=== PATIENT | male | born 1955 | race Caucasian/White ===

== ENCOUNTER → 2019-09-30 | Outpatient (CLI) | payer OTHER, SELFPAY | PROVIDERS: Family Provider Family Medicine; Visit Provider Family Medicine | DX: I71.4 Abdominal aortic aneurysm, without rupture (principal) | CPT/HCPCS: 93978 ==

== ENCOUNTER 2019-12-10 06:58 | Outpatient (CLI) | payer OTHER, SELFPAY ==
--- NOTE | 2019-12-10 07:15 | XR_ITS ---
WS: [id number] KUB, 12/10/2019 Clinical Data: Follow-up kidney stone Comparison: KUB, 05/09/2019. Findings: No abnormal intraabdominal masses or calcifications are seen. There is no dilatated small bowel or ev idence of obstruction. No definite renal or ureteral calculi are seen. There is air in the stomach, small bowel and colon. T he air obscures detail over the kidneys. XR/XR KUB [id number] Impression: Negative for definite renal or ureteral calcifications.
[2019-12-10 08:08] LABS: Prostate Specific Antigen 0.38 ng/mL (0-4)
== END 2019-12-10 06:59 | disposition home or self-care (01) ==
PROVIDERS: Family Provider Family Medicine; PCP Family Medicine; Visit Provider Urology
DX: N20.0 Calculus of kidney (principal); R97.20 Elevated prostate specific antigen [PSA]; C61 Malignant neoplasm of prostate
CPT/HCPCS: 74018; 81001; 84153

== ENCOUNTER 2020-06-11 06:57 | Outpatient (CLI) | payer OTHER, SELFPAY ==
--- NOTE | 2020-06-11 07:10 | XR_ITS ---
WS: [id number] KUB, 06/11/2020. Clinical Data: urolithiasis Comparison: KUB, 12/10/2019. Findings: No abnormal intraabdominal masses or calcifications are seen. There is no dilatated small bowel or ev idence of obstruction. There is air in the stomach, small bowel and colon. The abdominal air obscures detail over the kidney s. The bladder is partly full. XR/XR KUB [id number] Impression: Negative KUB.
== END 2020-06-11 06:58 | disposition home or self-care (01) ==
PROVIDERS: PCP Family Medicine; Visit Provider Urology
DX: N20.9 Urinary calculus, unspecified (principal); C61 Malignant neoplasm of prostate
CPT/HCPCS: 74018; 81001; 84153

== ENCOUNTER 2020-10-06 08:50 | Outpatient (CLI) | payer OTHER, SELFPAY ==
--- NOTE | 2020-10-06 09:00 | USCV_ITS ---
Eliceo Simpson Age: 64 Gender: M : 1955 Exam Date: 10/06/2020 09:42 Ordering Phys: Onofre Elise MD Technologist: Elissa Dejesus Exam Location: [facility] [place] Indication: AAA HISTORY: Diameter (cm) AP x Transverse x Length Velocity (cm/s) Waveform Prox Aorta: 2.21 x 2.75 x 2.12 Mid Aorta: 2.67 x 2.81 x 2.54 60.70 Distal Aorta: 2.50 x 2.71 x 2.61 Right Iliac Prox: 1.34 x 1.45 x Left Iliac Prox: 1.51 x 1.78 x Stent Prox Landing x x Aneurysmal Sac Max x x Lt Lat Sac Dim Rt Lat Sac Dim Stent Dist Landing x x Right Iliac Stent x x Left Iliac Stent x x Right Renal Art Left Renal Art FINDINGS: Mildly dilated mid and distal abdominal aorta measuring 2.67 x 2.81and 2.5 x 2.71 respectively. Mild to moderate diffuse plaques in the abdominal aorta Right proximal iliac artery measuring 1.34 x 1.45 cm Left iliac artery measuring 1.51 x 1.78 cm CONCLUSIONS 1. Small aneurysmal dilatation of the perirenal and infrarenal abdominal aorta measuring 2.67 x 2.81 cm and 2.5 x 2.71 cms 2. Ectatic proximal common iliac arteries bilaterally Compared to the study from 09/30/2019, there is slight increase in the size of the aneurysm at the perirenal and infrarenal levels Dr Crystal Garcia MD [facility] (Electronically Signed) Final Date: 07 October 2020 19:28 S
== END 2020-10-06 08:51 | disposition home or self-care (01) ==
PROVIDERS: PCP Family Medicine; Visit Provider Family Medicine
DX: I71.4 Abdominal aortic aneurysm, without rupture (principal)
CPT/HCPCS: 93978

== ENCOUNTER → 2020-12-10 07:55 | Outpatient (BNVA) | payer OTHER, MEDICARE, SELFPAY | PROVIDERS: PCP Family Medicine; Visit Provider Urology | DX: C61 Malignant neoplasm of prostate (principal); N20.0 Calculus of kidney | CPT/HCPCS: 81003; 84153 ==

== ENCOUNTER 2021-04-17 14:29 | Emergency (ER) | payer OTHER, MEDICARE, SELFPAY ==
[2021-04-17 14:38] VITALS: BP 136/83; PULSE 80; RESP 16; TEMP 36.4; O2SAT 97; BMI 27.1
--- NOTE | 2021-04-17 14:52 | ED_ITS ---
HPI - Neck Pain/Injury General: Chief Complaint: Neck Pain/Injury Stated Complaint: Pain in neck Time Seen by Provider: 04/17/21 14:50 History of Present Illness: HPI Narrative: Patient is a 65-year-old male comes to the ED with neck pain. He says on Monday morning he woke up with this neck pain. He then went playing golf later that day and that made his neck pain a lot worse. Patient says he was seen by his primary care doctor yesterday and he was placed on some muscle relaxers and today his pain is worse. Says all his pain is in both right and left muscles of the neck. Denies any known form of injury. Associated symptoms: Denies headache(s) or nausea Review of Systems Const: Denies: fever(s), chills or fatigue Eyes: Denies: change in vision or eye discomfort ENMT: Denies: throat pain, odynophagia, nasal discharge or nasal congestion Card: Denies: chest pain, palpitations, edema, swelling of feet/ankles, dyspnea on exertion or orthopnea Resp: Denies: dyspnea, productive cough or non-productive cough GI: Denies: abdominal pain, nausea, vomiting, diarrhea, constipation or hematochezia : Denies: flank pain, difficulty urinating, dysuria or hematuria Musc: Reports: neck pain; Denies: back pain or extremity swelling Skin/Breast: Denies: rash or new lesions Neuro: Denies: headache(s), numbness in extremities or weakness in extremities PFSH ED PFSH: Medical History Abdominal aortic aneurysm (AAA) CAD (coronary artery disease) COPD (chronic obstructive pulmonary disease) Dyslipidemia Elevated PSA Essential hypertension Prostate CA Renal calculus, right S/P extracorporeal shock wave therapy Urolithiasis Surgical History S/P arterial stent Family History Sister Cancer Ovarian Mother , 85 Stroke Father , 85 CAD (coronary artery disease) Social History Smoking and tobacco status: former smoker Alcohol intake: current Alcohol intake frequency: few times a month Adopted: No Caregiver/support person: No Lives independently: No Household members: spouse Marital status: Current occupational status: retired History of recent travel: No Current gender identity: Male Physical Exam Const: COMMON NORMALS: patient oriented x3 HENMT: COMMON NORMALS: normocephalic HEAD & SCALP: normocephalic MOUTH: Normal oral and palatal mucosa present THROAT: posterior oropharynx normal and uvula midline Neck/C-Spine: COMMON NORMALS: supple GENERAL: Yes normal visual inspection Resp: COMMON NORMALS: normal respiratory effort, No retractions, No use of a ccessory muscles and clear to auscultation bilaterally AUSCULTATION: clear to auscultation bilaterally Cardio: COMMON NORMALS: regular rate, regular rhythm, S1 normal heart sound present, S2 normal heart sound present, No gallops present (Cardio), No clicks present (Cardio), No murmurs present (Cardio) and Peripheral pulses 2+ throughout RATE: regular rate RHYTHM: regular rhythm HEART SOUNDS: S1 normal heart sound present and S2 normal heart sound present PERIPHERAL PULSES: Peripheral pulses 2+ throughout GI: COMMON NORMALS: Normal to inspection, nondistended, normoactive bowel sounds present, Soft to palpation, non-tender and no masses PALPATION: Yes Soft to palpation : COMMON NORMALS: Yes no CVA tenderness BLADDER/KIDNEY EXAM: Yes no CVA tenderness Back/Pelvis: COMMON NORMALS: no CVA tenderness Extremity: COMMON NORMALS: normal to inspection Neuro: COMMON NORMALS: patient oriented x3 and moves all extremities Skin: GENERAL SKIN EXAM: dry skin Course Vital Signs: Vital signs: Vital Signs Temperature 97.5 F L 04/17/21 14:38 Pulse Rate 80 04/17/21 14:38 Respiratory Rate 16 04/17/21 14:38 Blood Pressure 136/83 04/17/21 14:38 Pulse Oximetry 97 04/17/21 14:38 MDM - Neck Pain/Injury MDM Narrative: Medical decision making narrative: Pt is a 65 y/o Male that comes to the ED with neck pain. Pt woke up with pain and denies any injury or trauma. He says pain got worse after golfing that day. Exam shows a healthy pt with bilateral neck muscle tenderness. Pt diagnosed with cervical muscle strain and d/c home. pt is currently taking 5mg dose of cyclobenzaprine and I told him to try taking 10mg dose to see if that helps symptoms. Rest, ice and stretch neck muscles daily. pt has previouosly prescribed pain meds at home he said he can use. follow up with pcp in 7-10 days for reevaluation. Discharge Plan Discharge Patient Disposition: Home Clinical Impression: Cervical muscle strain Qualifiers: Encounter type: initial encounter Qualified Code(s): S16.1XXA - Strain of muscle, fascia and tendon at neck level, initial encounter Condition: Stable Prescriptions: No Action aspirin [Adult Low Dose Aspirin] 81 mg tablet,delayed release (DR/EC) 81 mg PO DAILY RF: 0 lisinopril 2.5 mg tablet 2.5 mg PO DAILY RF: 0 clopidogrel 75 mg tablet 75 mg PO DAILY Qty: 90 RF: 3 atorvastatin 80 mg tablet 80 mg PO DAILY Qty: 90 RF: 3 Discharge Orders: Discharge ED (Routine); Ordered 04/17/21 Ordered By: Sebastián Self Referrals: Onofre Elise MD [Primary Care Provider] - Discharge Diet: Regular Discharge Activity: Increase activity as tolerated Patient Instructions: Cervical Strain Activity Restrictions/Additional Instructions: Follow-up with medical provider as directed in 5 to 7 days reevaluation. Apply cold pack on neck and try to stretch neck muscles on daily. Take your 10 mg(2 tabs) of cyclobenzaprine each dose to help with symptoms. Take some of your previously prescribed hydrocodone tablets you have at home to help with pain. Return to the ER or your medical provider if condition worsens. Please read and understand discharge instructions. Thank you for choosing [facility] for your healthcare needs today. Please realize this is an emergency room and that we are providing you with a medical screening exam and this may not be complete and all inclusive of all the testing and or work up that you may need to determine your ailment or severity of your illness. It is very important that you follow up as instructed or that you return to the Emergency Department should you have concerns or if your condition changes or worsens in any way. Coding Level of Care Code ED Conveyor Belt Installer for Judy Dang Exam Comprehensive
== END 2021-04-17 15:35 | disposition home or self-care (01) ==
PROVIDERS: Emergency Provider Physician Assistant; PCP Family Medicine
DX: S16.1XXA Strain of muscle, fascia and tendon at neck level, initial encounter (principal); Z79.82 Long term (current) use of aspirin; Z79.02 Long term (current) use of antithrombotics/antiplatelets; I25.10 Atherosclerotic heart disease of native coronary artery without angina pectoris; J44.9 Chronic obstructive pulmonary disease, unspecified; E78.5 Hyperlipidemia, unspecified; Z85.46 Personal history of malignant neoplasm of prostate; I10 Essential (primary) hypertension; Z87.891 Personal history of nicotine dependence; X58.XXXA Exposure to other specified factors, initial encounter
CPT/HCPCS: 99281

== ENCOUNTER 2021-04-27 05:09 | Inpatient (IN) | payer OTHER, MEDICARE, SELFPAY ==
[2021-04-27] VITALS (23 sets, daily range): BP systolic 99–160; BP diastolic 50–89; PULSE 62–94; RESP 13–28; TEMP 36.1–37.4; O2SAT 88–100; BMI 27.1
--- NOTE | 2021-04-27 05:46 | CT_ITS ---
WS: [id number] CT abdomen pelvis w con* [id number] REASON FOR EXAM: abd pain IV CONTRAST ADMINISTERED: 95 mL of Omnipaque 300. TOTAL EXAM DLP: 1617.[address] scans at [facility] use at least one of these dose optimization techniques: automat ed exposure control; mA and/or kV adjustment per patient size (includes targeted exams where dose is matched to clinical indication); or iterative reconstruction. FINDINGS: ABDOMEN: There are calcified granulomas in the liver and spleen. The liver and spleen are otherwise unremarkab le. The pancreas is normal. The gallbladder is enlarged. It has an irregular hypointense thickened wall and high density central portion. No calculi are identified. There is no dilatation of the biliary ducts. The adrenals are unremarkable. There are multiple small right renal calculi. The kidneys are otherwise unremarkable. No mass, adenopathy, focal fluid collection, or free fluid is identified. No bowel abnormality. No bony abnormality. PELVIS: No mass, adenopathy, focal fluid collection, or free fluid is identified. No abnormality of the urina ry bladder. No bony abnormality. CT/CT abdomen pelvis w con* [id number] IMPRESSION: The appearance of the gallbladder is not typical for cholecystitis. Possibly th e findings are indicative of hemorrhagic infarction with clot within the gallbl adder. The other consideration would be hemorrhage with gallbladder carcinoma . Calculi are not identified and were not present on a previous CT scan of 07/02.
[2021-04-27 06:13] LABS: Basophils # 0.1 10^3/uL (0.0-0.1); Eosinophils # 0.2 10^3/uL (0.0-0.8); Eosinophils % 2.3 %; Hematocrit 48.2 % (42.0-52.0); Hemoglobin 16.2 g/dL (11.7-16.6); Lymphocytes # 2.3 10^3/uL (0.8-4.8); Lymphocytes % 26.4 %; Mean Corpuscular HGB Conc 33.6 g/dL (30.0-36.0); Mean Corpuscular Hemoglobin 33.1 pg (28.0-34.0); Mean Corpuscular Volume 98.4 fL (80-94); Mean Platelet Volume 10.4 fL (7.4-10.4); Monocytes # 0.9 10^3/uL (0.2-0.9); Monocytes % 9.9 %; Neutrophils # 5.29 10^3/uL (1.8-7.7); Neutrophils % 60.1 %; Nucleated Red Blood Cells % 0 %; Platelet Count 219 10^3/cmm (130-400); Red Cell Distribution Width 13.2 % (12.1-15.1); White Blood Count 8.8 10^3/uL (4.0-10.0)
--- NOTE | 2021-04-27 06:14 | ED_ITS ---
HPI - Abdominal Pain General: Chief Complaint: Abdominal Pain Stated Complaint: ABD Pain Time Seen by Provider: 04/27/21 05:46 History of Present Illness: HPI narrative: This patient is a 65-year-old male who presents to the emergency department with diffuse abdominal pain feels like he is bloated. Patient states it feels sharp at times and is cannot seem to get comfortable. Patient stated he had about small bowel movement this morning but has not been have any flatus. Will do medical evaluation treat as needed. MD elicited complaint: abdominal pain Location: Diffuse Severity: moderate Quality: aching Exacerbating factors: nothing Relieving factors: nothing Associated Symptoms: Denies chills, dysuria, fever(s), nausea and vomiting Review of Systems General: Reports: 10 or more systems reviewed and unremarkable except in HPI and below Const: Denies: fever(s), chills, body aches or fatigue Eyes: Denies: change in vision or blurry vision ENMT: Denies: throat pain, hoarseness or mouth pain Card: Denies: chest pain, palpitations, irregular heart rhythm, edema, swelling of feet/ankles or lightheadedness Resp: Denies: dyspnea, productive cough, non-productive cough, wheezing or pain on inspiration GI: Reports: abdominal pain; Denies: nausea or vomiting : Denies: flank pain, dysuria, urinary frequency, urinary urgency or urinary hesitancy Musc: Denies: neck pain, back pain, extremity pain, extremity swelling, joint pain, joint swelling, joint redness, joint warmth or limited range of motion Skin/Breast: Denies: rash, pruritus, erythema or skin tenderness Neuro: Denies: headache(s), numbness in extremities or weakness in extremities Psych: Denies: anxiety or depression PFS ED PFSH: Medical History Abdominal aortic aneurysm (AAA) CAD (coronary artery disease) COPD (chronic obstructive pulmonary disease) Dyslipidemia Elevated PSA Essential hypertension Prostate CA Renal calculus, right S/P extracorporeal shock wave therapy Urolithiasis Surgical History S/P arterial stent Family History Sister Cancer Ovarian Mother , 85 Stroke Father , 85 CAD (coronary artery disease) Social History Smoking and tobacco status: former smoker Alcohol intake: current Alcohol intake frequency: few times a month Adopted: No Caregiver/support person: No Lives independently: No Household members: spouse Marital status: Current occupational status: retired History of recent travel: No Current gender identity: Male Physical Exam Const: COMMON NORMALS: no acute distress, average body habitus, patient oriented x3, no limitations, healthy appearing, alert and well nourished HENMT: COMMON NORMALS: normocephalic, atraumatic, hearing grossly normal bilaterally, external ears normal, EAC's normal, TM's normal bilaterally, Normal external nose present, Normal nasal mucous membranes and turbinates present, moist oral mucous membranes, oropharynx normal, dentition normal and gingiva normal HEAD & SCALP: normocephalic and atraumatic NOSE: Normal external n ose present and Normal nasal mucous membranes and turbinates present EXTERNAL EAR: Yes external ears normal EXTERNAL AUDITORY CANAL: EAC's normal TYMPANIC MEMBRANE: TM's normal bilaterally Neck/C-Spine: COMMON NORMALS: full ROM, no lymphadenopathy, supple, no meningeal signs, no JVD, Thyroid normal and No carotid bruits THYROID: Thyroid normal Chest: COMMONS NORMALS: normal inspection of the chest, normal palpation of entire chest wall, normal inspection of the breasts and normal palpation of the breasts Breast/axilla inspection: Yes normal inspection of the breasts BREAST/AXILLA PALPATION: Yes normal palpation of the breasts Resp: COMMON NORMALS: normal respiratory effort, No retractions, No use of accessory muscles, clear to auscultation bilaterally and percussion normal AUSCULTATION: clear to auscultation bilaterally PERCUSSION: percussion normal Cardio: COMMON NORMALS: no JVD, regular rate, regular rhythm, S1 normal heart sound present, S2 normal heart sound present, No gallops present (Cardio), No clicks present (Cardio), No murmurs present (Cardio), No rub (Cardio) and Sera pheral pulses 2+ throughout RATE: regular rate RHYTHM: regular rhythm HEART SOUNDS: S1 normal heart sound present and S2 normal heart sound present PERIPHERAL PULSES: Peripheral pulses 2+ throughout GI: COMMON NORMALS: Normal to inspection, nondistended, normoactive bowel sounds present, Soft to palpation, No hepatosplenomegaly present, no masses and no bruits INSPECTION: Yes abdominal distension PALPATION: Yes Soft to palpation, Yes Tenderness to palpation present (GI) (Diffuse) and Yes No hepatosplenomegaly present : COMMON NORMALS: Yes no CVA tenderness BLADDER/KIDNEY EXAM: Yes no CVA tenderness Back/Pelvis: COMMON NORMALS: no CVA tenderness, thoracic and lumbar spine normal to inspection, no thoracic nor lumbar tenderness, thoraco-lumbar ROM normal and straight leg raise negative bilaterally Extremity: COMMON NORMALS: normal to inspection, full ROM, capillary refill normal, no joint enlargement, no clubbing, cyanosis or edema, no calf tenderness and no pedal edema Neuro: COMMON NORMALS: patient oriented x3 SENSORIUM/ORIENTATION: Yes alert MENINGEAL SIGNS: Yes no meningeal signs Course Reevaluation(s): Reevaluation #1: I did discuss at length with patient and fam greman about findings. They are agreeable to be admitted to the hospital. They understand to be n.p.o. status for at this time due to potential surgery this afternoon. Time: 09:35 Consultations: Consultation #1: I discussed with general surgery Dr. Tapia. He states he will see patient as a consult. Keep patient n.p.o. and he is agreeable with patient to be started on Zosyn. Time: 09:35 Consultation #2: I did discuss at length with Dr. Buchanan. He will see patient write additional orders. Time: 09:36 Vital Signs: Vital signs: Vital Signs Temperature 98.6 F 04/27/21 05:22 Pulse Rate 75 04/27/21 09:00 Respiratory Rate 24 H 04/27/21 09:56 Blood Pressure 137/72 04/27/21 09:00 Pulse Oximetry 99 04/27/21 09:00 MDM - Abdominal Pain MDM Narrative: Medical decision making narrative: This patient is a 65-year-old male who presents to the emergency department with diffuse abdominal pain feels like he is bloated. Patient states it feels sharp at times and is cannot seem to get comfortable. Patient stated he had about small bowel movement this morning but has not been have any flatus. Will do medical evaluation treat as needed. I did discuss at length with patient and family about findings. They are agreeable to be admitted to the hospital. They understand to be n.p.o. status for at this time due to potential surgery this afternoon. I discussed with general surgery Dr. Tapia. He states he will see patient as a consult. Keep patient n.p.o. and he is agreeable with patient to be started on Zosyn. I did discuss at length with Dr. Buchanan. He will see patient write additional orders. Differential Diagnosis: Differential diagnosis abdominal pain: Likely abdomin al pain, acute appendicitis, calculus of kidney, constipation, diverticulitis, endometriosis, gastroenteritis, pancreatitis and small bowel obstruction Medical Records: Attestation: I reviewed the patient's medical records. Lab Data: Attestation: I reviewed the patient's lab results. Labs: Lab Results 04/27/21 04/27/21 04/27/21 Range/Units 06:04 06:04 06:04 WBC 8.8 (4.0-10.0) 10^3/ uL RBC 4.90 (4.1-5.3) 10^6/u L Hgb 16.2 (11.7-16.6) g/dL Hct 48.2 (42.0-52.0) % MCV 98.4 H (80-94) fL MCH 33.1 (28.0-34.0) pg MCHC 33.6 (30.0-36.0) g/dL RDW 13.2 (12.1-15.1) % Plt Count 219 (130-400) 10^3/c mm MPV 10.4 (7.4-10.4) fL Neut % (Auto) 60.1 % Lymph % (Auto) 26.4 % [place] % (Auto) 9.9 % Eos % (Auto) 2.3 % Baso % (Auto) 1.0 % Neut # (Auto) 5.29 (1.8-7.7) 10^3/u L Lymph # (Auto) 2.3 (0.8-4.8) 10^3/u L [place] # (Auto) 0.9 (0.2-0.9) 10^3/u L Eos # (Auto) 0.2 (0.0-0.8) 10^3/u L Baso # (Auto) 0.1 (0.0-0.1) 10^3/u L Nucleated RBC % (a uto) 0 % Nucleated RBCs # 0.0 /100WBC Sodium 138 (136-145) mmol/L Potassium 3.9 (3.5-5.1) mmol/L Chloride 103 (98-107) mmol/L Carbon Dioxide 23 (22-29) mmol/L Anion Gap 15.9 (5-19) BUN 8 (8-23) mg/dL Creatinine 1.0 (0.7-1.2) mg/dL GFR Calculation 75.0 L (90-130) mL/min Glucose 154 H (65-115) mg/dL Calculated Osmolal ity 287 (285-295) mOsm/k g Lactic Acid 3.3 H (0.5-2.2) mmol/L Lactic Acid (Sepsi s) (0.5-2.2) mmol/L Calcium 9.1 (8.5-10.5) mg/dL Total Bilirubin 0.5 (0.15-1.2) mg/dL AST 155 H (0-40) U/L ALT 107 H (0-41) U/L Alkaline Phosphata se 123 (40-130) IU/L Total Protein 6.7 (6.6-8.7) g/dL Albumin 4.0 (3.5-5.2) g/dL Globulin 2.7 (1.3-4.6) g/dL Urine Color (Yellow) Urine Appearance (CLEAR) Urine pH (5-7) Ur Specific Gravit y (1.005-1.030) Urine Protein (Negative) Urine Glucose (UA) (Normal) Urine Ketones (Negative) Urine Blood (Negative) Urine Nitrate (Negative) Urine Bilirubin (Negative) Urine Urobilinogen (Negative) mg/dL Ur Leukocyte Dyana ase (Negative) Urine RBC (0-2) /hpf Urine WBC (0-5) /hpf Ur Squamous Epith Cells (0-5) /hpf Amorphous Sediment Urine Bacteria (NONE) /hpf Urine Mucus /hpf 04/27/21 04/27/21 Range/Units 06:18 08:12 WBC (4.0-10.0) 10^3/ uL RBC (4.1-5.3) 10^6/u L Hgb (11.7-16.6) g/dL Hct (42.0-52.0) % MCV (80-94) fL MCH (28.0-34.0) pg MCHC (30.0-36.0) g/dL RDW (12.1-15.1) % Plt Count (130-400) 10^3/c mm MPV (7.4-10.4) fL Neut % (Auto) % Lymph % (Auto) % [place] % (Auto) % Eos % (Auto) % Baso % (Auto) % Neut # (Auto) (1.8-7.7) 10^3/u L Lymph # (Auto) (0.8-4.8) 10^3/u L [place] # (Auto) (0.2-0.9) 10^3/u L Eos # (Auto) (0.0-0.8) 10^3/u L Baso # (Auto) (0.0-0.1) 10^3/u L Nucleated RBC % (a uto) % Nucleated RBCs # /100WBC Sodium (136-145) mmol/L Potassium (3.5-5.1) mmol/L Chloride (98-107) mmol/L Carbon Dioxide (22-29) mmol/L Anion Gap (5-19) BUN (8-23) mg/dL Creatinine (0.7-1.2) mg/dL GFR Calculation (90-130) mL/min Glucose (65-115) mg/dL Calculated Osmolal ity (285-295) mOsm/k g Lactic Acid (0.5-2.2) mmol/L Lactic Acid (Sepsi s) 3.0 H (0.5-2.2) mmol/L Calcium (8.5-10.5) mg/dL Total Bilirubin (0.15-1.2) mg/dL AST (0-40) U/L ALT (0-41) U/L Alkaline Phosphata se (40-130) IU/L Total Protein (6.6-8.7) g/dL Albumin (3.5-5.2) g/dL Globulin (1.3-4.6) g/dL Urine Color Yellow (Yellow) Urine Appearance Clear (CLEAR) Urine pH 5 (5-7) Ur Specific Gravit y 1.015 (1.005-1.030) Urine Protein Neg (Negative) Urine Glucose (UA) Norm (Normal) Urine Ketones Negative (Negative) Urine Blood Neg (Negative) Urine Nitrate Negative (Negative) Urine Bilirubin 1+ H (Negative) Urine Urobilinogen 1 H (Negative) mg/dL Ur Leukocyte Dyana ase Trace H (Negative) Urine RBC Rare (0-2) /hpf Urine WBC 0-4 H (0-5) /hpf Ur Squamous Epith Cells 0-4 H (0-5) /hpf Amorphous Sediment Not Reportable Urine Bacteria Trace (NONE) /hpf Urine Mucus 1+ /hpf Imaging Data ^: CT Abd/Pel: Attestation: I personally reviewed and interpreted this imaging study as follows: Radiologist's impression: FINDINGS: ABDOMEN: There are calcified granulomas in the liver and spleen. The liver and spleen are otherwise unremarkable. The pancreas is normal. The gallbladder is enlarged. It has an irregular hypointense thickened wall and high density central portion. No calculi are identified. There is no dilatation of the biliary ducts. The adrenals are unremarkable. There are multiple small right renal calculi. The kidneys are otherwise unremarkable. No mass, adenopathy, focal fluid collection, or free fluid is identified. No bowel abnormality. No bony abnormality. PELVIS: No mass, adenopathy, focal fluid collection, or free fluid is identified. No abnormality of the urinary bladder. No bony abnormality. CT/CT abdomen pelvis w con* [id number] IMPRESSION: The appearance of the gallbladder is not typical for cholecystitis. Possibly the findings are indicative of hemorrhagic infarction with clot within the gallbladder. The other consideration would be hemorrhage with gallbladder carcinoma. Calculi are not identified and were not present on a previous CT scan of 07/16/2018. US: Attestation: I personally reviewed and interpreted this imaging study as follows: Radiologist's impression: FINDINGS: Pancreas: Normal Abdominal aorta and IVC: Normal Liver: Normal Gallbladder: Gallbladder is enlarged and contains heterogeneous increased signal with thickened wall and a small amount of fluid in the gallbladder, same as the findings noted on the CT scan. There was no enhancement in this abnormality on CT and no color flow is identified on ultrasound. It is possible this represents impacted sludge and multiple stones within a necrotic gallbladder. The patient had no identifiable calculi on previous CT scans. This is a very unusual appearance for both CT and ultrasound for multiple calculi and cholecystitis. Still some concern for hemorrhagic infarction and/or gallbladder tumor. Common bile duct is not dilated. Right kidney is normal. US/US gall bladder [id number] IMPRESSION: Atypical abnormal gallbladder as above. Discharge Plan Discharge Patient Disposition: Placed in Observation Clinical Impression: Gallbladder necrosis, Abdominal pain, acute, right upper quadrant Coding Level of Care Code ED Professor Of Public Administration for Chg Fwd Exam Comprehensive
[2021-04-27] MEDS: sodium chloride 0.9% 1,000 ML 999 ML IV (06:19)
[2021-04-27] MEDS: ondansetron 2 mg/ML SDV 2 mL 4 MG IVP ×2 (06:20→09:56)
[2021-04-27] MEDS: morphine 4 mg/mL SDV 1 mL IVP ×2 (06:21→09:56)
[2021-04-27 06:32] LABS: Alanine Aminotransferase 107 U/L (0-41); Alkaline Phosphatase 123 IU/L (40-130); Anion Gap 15.9 (5-19); Aspartate Amino Transferase 155 U/L (0-40); Blood Urea Nitrogen 8 mg/dL (8-23); Calcium 9.1 mg/dL (8.5-10.5); Carbon Dioxide 23 mmol/L (22-29); Chloride 103 mmol/L (98-107); Creatinine Clr Calc Pharmacy 86.2992; Globulin 2.7 g/dL (1.3-4.6); Glucose 154 mg/dL (65-115); Osmolality Calculated 287 mOsm/kg (285-295); Potassium 3.9 mmol/L (3.5-5.1); Sodium 138 mmol/L (136-145); Total Bilirubin 0.5 mg/dL (0.15-1.2); Total Protein 6.7 g/dL (6.6-8.7)
[2021-04-27 06:33] LABS: Lactic Sepsis W/Reflex 3.3 mmol/L (0.5-2.2)
[2021-04-27 06:56] LABS: Add Urine Microscopic? YES; Bilirubin Urine 1+ (Negative); Blood Urine Neg (Negative); Glucose Urine UA Norm (Normal); Ketones Urine Negative (Negative); Leukocyte Esterase Urine Trace (Negative); Nitrate Urine Negative (Negative); Protein Urine Neg (Negative); Specific Gravity, Urine 1.015 (1.005-1.030); Urine Appearance Clear (CLEAR); Urine Color Yellow (Yellow); Urobilinogen Urine 1 mg/dL (Negative); pH Urine 5 (5-7)
[2021-04-27] MEDS: iohexol 300 mg/mL 100 mL Btl IV (06:57)
[2021-04-27 06:59] LABS: Bacteria Urine TRACE /hpf; Mucus Urine 1+ /hpf; RBC Urine RARE /hpf (0-2); Squamous Epithelial Cell Urine 0-4 /hpf (0-5); WBC Urine 0-4 /hpf (0-5)
[2021-04-27 07:00] LABS: Add Urine Culture? No
--- NOTE | 2021-04-27 07:12 | PC.NURSE ---
Received report assumed care. NO changes noted from report. States pain is returning. Informed Dr Gilman.
[2021-04-27 07:57] LABS: Reflex Lactate Order REFLEX LACTIC ORDERD
--- NOTE | 2021-04-27 08:13 | US_ITS ---
WS: [id number] ABDOMINAL ULTRASOUND LIMITED REASON FOR VISIT: Abd Pain TECHNIQUE: Grayscale and Doppler ultrasound examination of the abdomen. FINDINGS: Pancreas: Normal Abdominal aorta and IVC: Normal Liver: Normal Gallbladder: Gallbladder is enlarged and contains heterogeneous increased signal with thickened wall and a small amount of fluid in the gallbladder, same as the findings noted on the CT scan. There was no enhancement in this abnormality on CT and no color flow is identified on ultrasound. It is possibl e this represents impacted sludge and multiple stones within a necrotic gallbladder. The patient had no identifiable calculi on previous CT scans. This is a very unusual appearance for both CT and ultra sound for multiple calculi and cholecystitis. Still some concern for hemorrhagic infarction and/or ga llbladder tumor. Common bile duct is not dilated. Right kidney is normal. US/US gall bladder [id number] IMPRESSION: Atypical abnormal gallbladder as above.
[2021-04-27] MEDS: ketorolac 30 mg/mL INJ 15 MG IVP (08:44)
[2021-04-27] MEDS: piperacillin-tazobactam 3.375 GM in sodium chloride 0.9% (plus) 50 ML IV ×2 (09:56→16:44)
--- NOTE | 2021-04-27 10:19 | P.HP_ITS ---
Providers/Chief Complaint Primary Care Provider: Onofre Elise MD Chief Complaint: ABD Pain History of Present Illness Eliceo Simpson is a 65 year old male who has history of coronary disease status post stent placement in LAD 10 years ago very active for his age, no shortness of breath active chest pain recent surgeries, came in today with chief complaint of right upper quadrant pain. Patient is stating that he was in his usual state of health until today at 3:30 AM he started experiencing excruciating right upper quadrant pain after having black coffee. He did not eat anything after that his pain has been getting worse no episode of emesis. No recent fever, diarrhea. No previous history of gallstones. Consider himself very active for his age, he walks every other day and able to climb up on steep hills as well. He takes aspirin Plavix atorvastatin and lisinopril His Plavix last dose was yesterday. Diagnosis in the ER revealed hypertensive urgency he is not septic he was started on Zosyn Dr. Tapia consulted for necrotic gallbladder Will request EKG no cardiac work-up needed before surgery Review of Systems Const: Reports: chills, body aches and fatigue; Denies: fever(s) Eyes: Denies: change in vision ENMT: Denies: throat pain Card: Denies: chest pain Resp: Denies: dyspnea GI: Reports: abdominal pain and nausea; Denies: vomiting : Denies: flank pain Musc: Denies: neck pain Skin/Breast: Denies: rash Neuro: Denies: headache(s) Psych: Denies: anxiety Endo: Denies: polyuria Vlad/Lymph: Denies: easy bruising All/Imm: Denies: urticaria Medications/Allergies Home Medications Medication Instructions Recorded Confirmed Last Taken Type aspirin 81 mg tablet,delayed 81 mg PO DAILY 12/10/19 12/10/20 Unknown History release lisinopril 2.5 mg tablet 2.5 mg PO DAILY 12/10/19 12/10/20 Unknown History atorvastatin 80 mg tablet 80 mg PO DAILY #90 tab 11/02/20 12/10/20 Unknown Rx clopidogrel 75 mg tablet 75 mg PO DAILY #90 tab 11/02/20 12/10/20 Unknown Rx cyclobenzaprine 5 mg PO QID PRN 04/27/21 04/27/21 Unknown History Allergies Allergy/AdvReac Type Severity Reaction Status Date / Time No Known Allergies Allergy Verified 11/10/20 15:13 PFSH Acute PFSH: Medical History (Updated 04/27/21 @ 11:30 by Nanda Buchanan MD) Abdominal aortic aneurysm (AAA) CAD (coronary artery disease) COPD (chronic obstructive pulmonary disease) Dyslipidemia Elevated PSA Essential hypertension Presence of stent in LAD coronary artery Prostate CA Renal calculus, right S/P extracorporeal shock wave therapy Urolithiasis Surgical History S/P arterial stent Family History Sister Cancer Ovarian Mother , 85 Stroke Father , 85 CAD (coronary artery disease) Social History Smoking and tobacco status: former smoker Alcohol intake: current Alcohol intake frequency: few times a month Adopted: No Caregiver/support person: No Lives independently: No Household members: spouse Marital status: Current occupational status: retired History of recent travel: No Current gender identity: Male Vitals/I&O/Wt Last Vital Signs Temp 98.6 F 04/27/21 05:22 Pulse 75 04/27/21 09:00 Resp 24 H 04/27/21 09:56 BP 137/72 04/27/21 09:00 Pulse Ox 99 04/27/21 09:00 04/26/21 04/27/21 04/27/21 22:59 06:59 14:59 Intake Total 1000 / 1000 Balance 1000 / 1000 Weight last 48 hrs Weight 90.718 kg Physical Exam Narrative: EXAM NARRATIVE: Healthy looking middle-aged male Fluids running at the bedside Recent received opioids Right upper quadrant pain with positive Yost sign S1, S2 sinus rhythm Abdomen soft without diffuse signs of peritonitis Lower extremity no edema gangrene ulcer however multiple petechia noted No edema of lower extremities EOMI, PERRLA no neurological deficit Awake alert into x3 GCS 15 Data : 04/27/21 06:04 04/27/21 06:04 A&P Assessment and plan (1) Gallbladder necrosis: Status: Acute (2) Abdominal aortic aneurysm (AAA): Status: Acute (3) S/P arterial stent: Status: Acute (4) Essential hypertension: Status: Acute (5) CAD (coronary artery disease): Status: Acute (6) Prostate CA: Status: Acute Additional A&P Information Gallbladder necrosis without any signs of sepsis N.p.o. Zosyn Maintenance fluid at the bedside Patient is vaccinated with moderna vaccine he received [address] Tapia consulted Preop clearance: Patient is very active for his age no recent chest discomfort or shortness of breath, would hold his aspirin, Plavix and lisinopril No cardiac work-up needed before surgery, he has history of LAD stent 10 years ago, RCRI class II risk Infrarenal AAA 2.8 cm which has been stable he follows up with cardiology for that For hypertension better pain control DVT prophylaxis SCDs N.p.o. Full code Attestations Medical Necessity Statement*: Anticipating stay in the hospital cross more than 2 midnight Time Spent in Patient Care: (>than 50% of time spent in counselling and/or direct pt care on unit) . 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
[2021-04-27 11:28] LABS: Procalcitonin 0.08 ng/mL (0-0.5)
--- NOTE | 2021-04-27 11:34 | ECG_ITS ---
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 Measurements Intervals [place] Rate: 76 P: 34 SD: 181 QRS: 24 QRSD: 117 T: 20 QT: 390 QTc: 441 Interpretive Statements SINUS RHYTHM MODERATE INTRAVENTRICULAR CONDUCTION DELAY [105+ ms QRS DURATION, 80+ ms Q/S IN V1/V2, NO Q AND 60+ ms R IN I/aVL/V5/V6] NONSPECIFIC T-WAVE ABNORMALITY Compared to ECG 07/16/2018 01:52:47 Intraventricular conduction delay now present T-wave abnormality still present Electronically Signed On 05-06-2021 12:37:04 CDT by Maria Luz Vela M.D. [id number]
--- NOTE | 2021-04-27 11:40 | P.CONIM_ITS ---
Providers/Reason For Consult Consulting Physician/Specialty*: General Surgery Esequiel Tapia MD Reason for Consult*: Severe right upper quadrant pain with abnormal gallbladder by imaging. Primary Care Provider: Onofre Elise MD History of Present Illness History of Present Illness Eliceo Simpson is a 65 year old male who awoke around his usual time about 3:30 AM this morning. He said he had a couple cups of coffee and then developed rather severe epigastric/right upper quadrant abdominal pain. This was associated with a bloating sensation but no fevers, vomiting, etc. The patient came to the hospital and imaging revealed an abnormal gallbladder. His white blood cell count was found to be normal but his lactic acid was elevated. He denies any history of food intolerances other than spicy foods will sometimes give him heartburn. This is the first time this type of pain has never happened to him. He has no known family history of gallbladder neoplasia. Review of Systems General: Reports: 10 or more systems reviewed and unremarkable except in HPI and below Const: Denies: fever(s) GI: Reports: abdominal pain and bloating; Denies: change in bowel habits Meds/Allergies Home Medications and Allergies Home Medications Medication Instructions Recorded Confirmed Last Taken Type aspirin 81 mg tablet,delayed 81 mg PO DAILY 12/10/19 04/27/21 04/26/21 History release lisinopril 2.5 mg tablet 2.5 mg PO DAILY 12/10/19 04/27/21 04/26/21 History atorvastatin 80 mg tablet 80 mg PO DAILY #90 tab 11/02/20 04/27/21 04/26/21 Rx clopidogrel 75 mg tablet 75 mg PO DAILY #90 tab 11/02/20 04/27/21 04/26/21 Rx cyclobenzaprine 5 mg PO QID PRN 04/27/21 04/27/21 Unknown History Allergies Allergy/AdvReac Type Severity Reaction Status Date / Time No Known Allergies Allergy Verified 11/10/20 15:13 Current Medications Current Medications Generic Name Dose Route Start Last Admin Trade Name Freq PRN Reason Stop Dose Admin Morphine Sulfate 4 mg 04/27/21 09:37 04/27/21 09:56 Morphine 4 Mg/Ml Sdv 1 Ml IVP 4 mg Q5M PRN Administration SEVERE PAIN PFSH Acute PFSH: Medical History (Updated 04/27/21 @ 11:44 by Esequiel Tapia MD) Abdominal aortic aneurysm (AAA) CAD (coronary artery disease) COPD (chronic obstructive pulmonary disease) Dyslipidemia Elevated PSA Essential hypertension Presence of stent in LAD coronary artery Prostate CA Renal calculus, right S/P extracorporeal shock wave therapy Urolithiasis Surgical History (Updated 04/27/21 @ 12:06 by Esequiel Tapia MD) History of cystoscopy Treatment of kidney stones / temporary stent placement S/P arterial stent Coronary stent x 2 Family History Sister Cancer Ovarian Mother , 85 Stroke Father , 85 CAD (coronary artery disease) Social History Smoking and tobacco status: former smoker Alcohol intake: current Alcohol intake frequency: few times a month Adopted: No Caregiver/support person: No Lives independently: No Household members: spouse Marital status: Current occupational status: retired History of recent travel: No Current gender identity: Male Vitals/I&O/Wt Last Vital Signs Temp 98.6 F 04/27/21 05:22 Pulse 71 04/27/21 11:00 Resp 22 H 04/27/21 11:00 BP 150/77 04/27/21 11:00 Pulse Ox 93 04/27/21 11:00 04/26/21 04/27/21 04/27/21 22:59 06:59 14:59 Intake Total 1000 / 1000 Balance 1000 / 1000 Weight last 48 hrs Weight 200 lb Physical Exam Narrative: EXAM NARRATIVE: The patient was encountered in his room in the emergency department. He appears to not feel well. The pupils are equal. No carotid bruits are heard. The lungs are clear anteriorly. The heart is regular. The abdomen reveals hypoactive bowel sounds and is mildly obese. He has tenderness in the right upper quadrant but Yost's sign is equivocal. He has had some morphine. The extremities reveal no edema. Neurologically the patient is grossly intact. Data Labs: Other Labs: Laboratory Tests 04/27/21 04/27/21 06:04 08:12 Lactic Acid (Sepsi s) 3.0 H Total Bilirubin 0.5 AST 155 H ALT 107 H Alkaline Phosphata se 123 Imaging^: CT Abd/Pel: Radiologist's impression: CT scan abdomen/pelvis 04/27/2021 IMPRESSION: The appearance of the gallbladder is not typical for cholecystitis. Possibly the findings are indicative of hemorrhagic infarction with clot within the gallbladder. The other consideration would be hemorrhage with gallbladder carcinoma. Calculi are not identified and were not present on a previous CT scan of 07/16/2018. US: Radiologist's impression: Ultrasound 04/27/2021 impression: Gallbladder: Gallbladder is enlarged and contains heterogeneous increased signal with thickened wall and a small amount of fluid in the gallbladder, same as the findings noted on the CT scan. There was no enhancement in this abnormality on CT and no color flow is identified on ultrasound. It is possible this represents impacted sludge and multiple stones within a necrotic gallbladder. The patient had no identifiable calculi on previous CT scans. This is a very unusual appearance for both CT and ultrasound for multiple calculi and cholecystitis. Still some concern for hemorrhagic infarction and/or gallbladder tumor. A&P Assessment and plan (1) Abnormal findings on diagnostic imaging of gallbladder: Imaging findings as above. It is difficult to know whether or not this is a hemorrhagic and/or ischemic event, but I told the patient that I think it is probably worthwhile considering surgery in the form of a cholecystectomy. Whether or not there is any underlying pathology is difficult to know. Surgical risks of possible further bleeding (the patient last took his Plavix yesterday), infection, internal organ injury, chances of a larger procedure, etc. were all discussed. The patient seems to understand and says he is ready to have surgery. The patient will be kept n.p.o. and we will make arrangements for a laparoscopic or possibly open cholecystectomy later today. Status: Acute (2) Abdominal pain, right upper quadrant: Status: Acute Consult Attestations Medical Necessity Statement: See admitting service's notation. 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
[2021-04-27] MEDS: sodium chloride 0.9% 1,000 ML 30 ML IV (15:56)
--- NOTE | 2021-04-27 16:06 | ANES.PREANE2 ---
Pre-Anesthetic Assessment Pre-Anesthetic Assessment: Height/Weight: Height 1.83 m Weight 90.718 kg Temp Pulse Resp BP Pulse Ox 97.2 F L 94 18 140/78 97 04/27/21 15:35 04/27/21 15:35 04/27/21 15:35 04/27/21 15:35 04/27/21 15:35 Proposed Procedure: Operation Date: 04/27/21 17:50 Proposed Procedures p Laparoscopic Cholecystectomy(Not Applicable) - Esequiel Tapia MD Was Beta Tyshawn taken within 24 hours: N/A Was Clonidine taken within 24 hours: N/A Last intake: Intake Last Liquid Date 04/27/21 Last Liquid Time 04:30 Last Solid Date 04/26/21 Last Solid Time 21:00 Social: Social History: No alcohol and No tobacco (h/o smoking) Exam: Pre-Anes Outpt Exam: alert, oriented x 3, clear to auscultation bilaterally and regular rate & rhythm Airway: Submandibular: WNL Cervical ROM: WNL MP: 2 Dentition: False (upper) CV/HEM: CV/HEM: CAD (Stents '10), HTN and PVD Comments: AAA Anesthetic Plan: ASA status: 3E Anesthesia: General (RSI) Risk of > 500 ml blood loss (7ml/kg in children): No Meds/Allergies Current Medications: Current Medications Generic Name Dose Route Start Last Admin Trade Name Freq PRN Reason Stop Dose Admin Sodium Chloride 1,000 mls @ 30 ml s/hr 04/27/21 15:45 04/27/21 15:56 Sodium Chloride 0.9% IV 04/28/21 15:44 30 mls/hr .Q24H MONIKA Administration Morphine Sulfate 4 mg 04/27/21 09:37 04/27/21 09:56 Morphine 4 Mg/Ml Sdv 1 Ml IVP 4 mg Q5M PRN Administration SEVERE PAIN PFSH Anesthesia PFSH: Medical History (Updated 04/27/21 @ 11:44 by Esequiel Tapia MD) Abdominal aortic aneurysm (AAA) CAD (coronary artery disease) COPD (chronic obstructive pulmonary disease) Dyslipidemia Elevated PSA Essential hypertension Presence of stent in LAD coronary artery Prostate CA Renal calculus, right S/P extracorporeal shock wave therapy Urolithiasis Surgical History (Updated 04/27/21 @ 12:06 by Esequiel Tapia MD) History of cystoscopy Treatment of kidney stones / temporary stent placement S/P arterial stent Coronary stent x 2 Family History Sister Cancer Ovarian Mother , 85 Stroke Father , 85 CAD (coronary artery disease) Social History Smoking and tobacco status: former smoker Alcohol intake: current Alcohol intake frequency: few times a month Adopted: No Caregiver/support person: No Lives independently: No Household members: spouse Marital status: Current occupational status: retired History of recent travel: No Current gender identity: Male Data Anesthesia CBC & Chem 7: 04/27/21 06:04 04/27/21 06:04 Other Labs: Laboratory Results - last 48 hr 04/27/21 04/27/21 04/27/21 06:04 06:04 06:04 WBC 8.8 RBC 4.90 Hgb 16.2 Hct 48.2 MCV 98.4 H MCH 33.1 MCHC 33.6 RDW 13.2 Plt Count 219 MPV 10.4 Neut % (Auto) 60.1 Lymph % (Auto) 26.4 Swisher % (Auto) 9.9 Eos % (Auto) 2.3 Baso % (Auto) 1.0 Neut # (Auto) 5.29 Lymph # (Auto) 2.3 Swisher # (Auto) 0.9 Eos # (Auto) 0.2 Baso # (Auto) 0.1 Nucleated RBC % (auto) 0 Nucleated RBCs # 0.0 Sodium 138 Potassium 3.9 Chloride 103 Carbon Dioxide 23 Anion Gap 15.9 BUN 8 Creatinine 1.0 GFR Calculation 75.0 L Glucose 154 H Calculated Osmolality 287 Lactic Acid 3.3 H Lactic Acid (Sepsis) Calcium 9.1 Total Bilirubin 0.5 AST 155 H ALT 107 H Alkaline Phosphatase 123 Total Protein 6.7 Albumin 4.0 Globulin 2.7 Procalcitonin Urine Color Urine Appearance Urine pH Ur Specific [place] Urine Protein Urine Glucose (UA) Urine Ketones Urine Blood Urine Nitrate Urine Bilirubin Urine Urobilinogen Ur Leukocyte Esterase Urine RBC Urine WBC Ur Squamous Epith Cells Amorphous Sediment Urine Bacteria Urine Mucus 04/27/21 04/27/21 04/27/21 06:05 06:18 08:12 WBC RBC Hgb Hct MCV MCH MCHC RDW Plt Count MPV Neut % (Auto) Lymph % (Auto) Swisher % (Auto) Eos % (Auto) Baso % (Auto) Neut # (Auto) Lymph # (Auto) Swisher # (Auto) Eos # (Auto) Baso # (Auto) Nucleated RBC % (auto) Nucleated RBCs # Sodium Potassium Chloride Carbon Dioxide Anion Gap BUN Creatinine GFR Calculation Glucose Calculated Osmolality Lactic Acid Lactic Acid (Sepsis) 3.0 H Calcium Total Bilirubin AST ALT Alkaline Phosphatase Total Protein Albumin Globulin Procalcitonin 0.08 Urine Color Yellow Urine Appearance Clear Urine pH 5 Ur Specific [place] 1.015 Urine Protein Neg Urine Glucose (UA) Norm Urine Ketones Negative Urine Blood Neg Urine Nitrate Negative Urine Bilirubin 1+ H Urine Urobilinogen 1 H Ur Leukocyte Esterase Trace H Urine RBC Rare Urine WBC 0-4 H Ur Squamous Epith Cells 0-4 H Amorphous Sediment Not Reportable Urine Bacteria Trace Urine Mucus 1+ Cardiac Studies: No Data to Display
--- NOTE | 2021-04-27 17:43 | PM.OP ---
Operative Report Date of procedure: April 27, 2021 Pre-op Diagnosis: Severe right upper quadrant pain, abnormal gallbladder on imaging. Post-op Diagnosis: Hemorrhagic cholecystitis. Post-op Findings: The patient's gallbladder was distended and had edema involving the wall. The entire lumen was filled with a combination of clotted blood and dark bile with the blood predominating. No obvious mass was palpated in the gallbladder after its removal but the gallbladder was not opened prior to being sent to pathology. Procedure Done: Laparoscopic cholecystectomy. Specimens removed/disposition: Gallbladder. Surgeon: Esequiel Tapia Anesthesia: General Estimated blood loss (mL): 25 Complications: None. Condition: stable Disposition: PACU Procedure: The patient was brought to the Operating Room and was placed in a supine position on the Operating Room table. General endotracheal anesthesia was induced. The abdomen was prepped and draped in a sterile fashion. A small vertical incision was carried out in the base of the umbilicus. Blunt dissection was carried out down to the fascia, where an umbilical hernia with a small amount of incarcerated fat was present. The fat was excised at the fascia and the small defect of the fascia was elongated both superiorly and inferiorly until the opening measured a little over a centimeter in diameter. A stay suture of 0 Vicryl was placed on either side of the midline. The underlying peritoneum was opened bluntly and the Christopher port was placed directly into the peritoneal cavity and was held in place with the inflatable balloon. The peritoneal cavity was insufflated with carbon dioxide. The laparoscope was used to inspect the abdominal cavity. No gross abnormalities were initially noted. A 5 millimeter port was placed in the epigastrium under direct vision. Two 5-millimeter ports were placed on the right side of the abdomen under direct vision. The gallbladder was identified and was found to be quite distended with some edema in the wall. It was obvious that some of the luminal material was going to have to be removed to allow the gallbladder to be grasped. A laparoscopic needle was used to remove approximately 30 cc of what appeared to be very dark-colored bile from the gallbladder, but then no further liquid could be aspirated. It was discovered that the remainder of the lumen was filled with clotted blood. A small opening was made in the gallbladder and most of this was suctioned out. The gallbladder was then able to be grasped and was elevated. Blunt dissection and hydrodissection were carried out in the infundibular region of the gallbladder and the cystic duct and cystic artery were identified. Once again, all of the surrounding tissue appeared to be edematous. The gallbladder was partially removed from the liver bed using cautery and the spatula to confirm the anatomy before the structures were clipped and divided. The gallbladder was then removed from the liver bed using cautery and the spatula. After the gallbladder had been removed from the liver bed, the laparoscope was moved to the epigastric port and the gallbladder was removed from the peritoneal cavity through the umbilical port site after being placed in a laparoscopic bag. The stay sutures of Vicryl were tied to each other at the umbilicus, closing the previous hernia defect so that it was airtight. The perihepatic spaces were irrigated with saline and the liver bed was reinspected. No ongoing problems were seen. The remaining ports were removed from the abdominal wall and the pneumoperitoneum was evacuated. All skin incisions were closed using inverted interrupted sutures of 4-0 Vicryl. Benzoin and Steri-Strips were placed over the incisions and Band-Aids followed. The patient was taken to the Recovery Area in stable condition postoperatively.
--- NOTE | 2021-04-27 18:25 | ANE.PACU2 ---
Inpatient post-anesthesia follow up: Airway intact: Yes Vital signs: Temperature 97.2 F Pulse Rate [Monito r] 70 Pulse Rate 94 Respiratory Rate 18 Blood Pressure [Le ft Arm] 112/67 Blood Pressure 140/78 Pulse Oximetry 97 Oxygen Delivery Me thod Room Air Oxygen Flow Rate 8 Fraction of Inspir ed Oxygen Hydration adequate: Yes Nausea and vomiting: No Pain level: 3 Mental status: Baseline
[2021-04-27] MEDS: D5-NS 0.45% + KCL 20 mEq 20 MEQ/1,000 ML BAG 100 MEQ IV (18:51)
[2021-04-27] MEDS: heparin 5,000 unit/mL INJ 1 mL 5000 UNIT SUBCUT (20:24)
[2021-04-27] MEDS: pantoprazole 40 mg SDV IVP (20:57)
[2021-04-28] VITALS (7 sets, daily range): BP systolic 123–133; BP diastolic 73–80; PULSE 74–95; RESP 16–18; TEMP 36.7–36.9; O2SAT 92–97
[2021-04-28] MEDS: piperacillin-tazobactam 3.375 GM in sodium chloride 0.9% (plus) 50 ML IV ×2 (00:40→07:37)
[2021-04-28] MEDS: D5-NS 0.45% + KCL 20 mEq 20 MEQ/1,000 ML BAG 100 MEQ IV (04:31)
[2021-04-28 05:34] LABS: Basophils % 0.4 %; Hemoglobin 14.7 g/dL (11.7-16.6); Lymphocytes # 0.8 10^3/uL (0.8-4.8); Lymphocytes % 7.9 %; Mean Corpuscular HGB Conc 32.7 g/dL (30.0-36.0); Mean Corpuscular Volume 100.9 fL (80-94); Mean Platelet Volume 10.8 fL (7.4-10.4); Monocytes # 0.7 10^3/uL (0.2-0.9); Monocytes % 6.6 %; Neutrophils # 8.87 10^3/uL (1.8-7.7); Neutrophils % 84.8 %; Nucleated Red Blood Cells % 0 %; Platelet Count 207 10^3/cmm (130-400); Red Blood Count 4.46 10^6/uL (4.1-5.3); Red Cell Distribution Width 13.3 % (12.1-15.1); White Blood Count 10.5 10^3/uL (4.0-10.0)
[2021-04-28 06:05] LABS: Albumin Level 3.6 g/dL (3.5-5.2); Alkaline Phosphatase 282 IU/L (40-130); Anion Gap 12.4 (5-19); Blood Urea Nitrogen 9 mg/dL (8-23); Calcium 9.1 mg/dL (8.5-10.5); Carbon Dioxide 27 mmol/L (22-29); Chloride 105 mmol/L (98-107); Globulin 2.6 g/dL (1.3-4.6); Glomerular Filtration Rate 84.7 mL/min (90-130); Glucose 126 mg/dL (65-115); Lipase 13 U/L (13-60); Osmolality Calculated 288 mOsm/kg (285-295); Potassium 5.4 mmol/L (3.5-5.1); Sodium 139 mmol/L (136-145); Total Bilirubin 0.7 mg/dL (0.15-1.2); Total Protein 6.2 g/dL (6.6-8.7)
[2021-04-28 06:08] LABS: Lactate (Lactic Acid level) 2.2 mmol/L (0.5-2.2)
[2021-04-28 06:20] LABS: Alanine Aminotransferase 1386 U/L (0-41)
[2021-04-28 06:22] LABS: Aspartate Amino Transferase 1069 U/L (0-40)
[2021-04-28] MEDS: levalbuterol 0.63 mg/3 mL Neb INHALATION (08:02)
[2021-04-28] MEDS: aspirin 81 mg EC Tablet PO (08:21)
[2021-04-28] MEDS: heparin 5,000 unit/mL INJ 1 mL 5000 UNIT SUBCUT (08:21)
[2021-04-28] MEDS: clopidogrel 75 mg Tablet PO (08:21)
[2021-04-28] MEDS: lisinopril 2.5 mg Tablet PO (08:21)
[2021-04-28] MEDS: pantoprazole 40 mg SDV IVP (08:21)
--- NOTE | 2021-04-28 09:09 | P.PN_ITS ---
Subjective Subjective: Interval history: The patient says he feels great this morning. He would like to go home. He is not passing flatus but he says he is quite hungry. Vitals/I&O/Wt Last Vital Signs Temp 98.4 F 04/28/21 08:00 Pulse 80 04/28/21 08:05 Resp 16 04/28/21 08:00 BP 125/73 04/28/21 08:00 Pulse Ox 95 04/28/21 08:00 04/27/21 04/28/21 04/28/21 22:59 06:59 14:59 Intake Total 750 / 2766.667 1016.667 / 2766.667 Output Total 1476 1475 / 1477 Balance 748 / 1289.667 -458.333 / 1289.667 Weight last 48 hrs Weight 200 lb Physical Exam Narrative: EXAM NARRATIVE: The patient does have some bowel sounds. All of the laparoscopic incisions look good. Data : 04/28/21 05:21 04/28/21 05:21 A&P Assessment and plan (1) Abnormal findings on diagnostic imaging of gallbladder: Status post laparoscopic cholecystectomy on 04/27/2021. Transaminases and alkaline phosphatase are elevated as expected immediately following surgery, but the patient's bilirubin remains normal. The patient had bleeding into the lumen of his gallbladder which is still somewhat unexplained, although he has been on Plavix for 11 years. I did not feel any obvious masses, etc. but did not open the gallbladder up fully. Await pathology. I am okay with the patient going home today if okay with the admitting hospitalist service. I will make arrangements for him to see me in the office next week as an outpatient. He does not think he needs any pain medication to go home with. Status: Acute (2) Abdominal pain, right upper quadrant: Status: Acute Attestations Medical Necessity Statement*: See admitting service's notation. 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
--- NOTE | 2021-04-28 09:36 | P.DS_ITS ---
Discharge Providers Date of Admission: 04/27/21 18:20 Date of Discharge: April 28, 2021 Attending Provider at Admission: Esequiel Tapia MD Attending Provider at Discharge: Esequiel Tapia MD Primary Care Provider: Onofre Elise MD Diagnoses at Discharge Discharge Diagnosis (1) Abnormal findings on diagnostic imaging of gallbladder: Status: Acute (2) Abdominal pain, right upper quadrant: Status: Acute Reason for Visit Reason for Visit: ABD Pain Hospital Course Hospital Course This is a 65-year-old white male who experienced the sudden onset of right upper quadrant pain early in the morning hours of 04/27/2021. He came to the emergency department and imaging revealed a very abnormal gallbladder suggestive of hemorrhage and/or necrosis. Neoplasia could not be ruled out. The patient was counseled regarding a cholecystectomy and elected to proceed. A laparoscopic cholecystectomy was carried out the same day and the patient's gallbladder lumen was found filled with clotted blood. Pathology is still pending. By the following morning the patient said he was feeling great. He was not taking any pain medication and was anxious to go home. Arrangements were made for him to be discharged but he was instructed with respect to wound care, activity limitations, diet, etc. prior to leaving. I will make arrangements for the patient to follow-up in my office next week as an outpatient. Physical Exam Narrative: EXAM NARRATIVE: The patient is afebrile. Vital signs are stable. Bowel sounds are present. All of the laparoscopic incisions look good. Discharge Data Data Completed and Pending: Completed Studies During Hospitalization Category Date Time Status CT abdomen pelvis w con* [id number] Stat Cat Scan 04/27/21 05:46 Completed US gall bladder 7 6705 Stat Ultrasound 04/27/21 08:13 Completed Pending at discharge Category Date Time Status ES surgery / GI i mages Routine Exams 04/27/21 16:07 Ordered Pathology: Surgic al [PTH] Routine Pth 04/27/21 17:54 Received Labs from last 24 hours 04/28/21 04/28/21 04/28/21 05:21 05:21 05:21 WBC 10.5 H RBC 4.46 Hgb 14.7 Hct 45.0 MCV 100.9 H MCH 33.0 MCHC 32.7 RDW 13.3 Plt Count 207 MPV 10.8 H Neut % (Auto) 84.8 Lymph % (Auto) 7.9 [place] % (Auto) 6.6 Eos % (Auto) 0.0 Baso % (Auto) 0.4 Neut # (Auto) 8.87 H Lymph # (Auto) 0.8 [place] # (Auto) 0.7 Eos # (Auto) 0.0 Baso # (Auto) 0.0 Nucleated RBC % (a uto) 0 Nucleated RBCs # 0.0 Sodium 139 Potassium 5.4 H Chloride 105 Carbon Dioxide 27 Anion Gap 12.4 BUN 9 Creatinine 0.9 GFR Calculation 84.7 L Glucose 126 H Calculated Osmolal ity 288 Lactate 2.2 Calcium 9.1 Total Bilirubin 0.7 Direct Bilirubin 0.30 AST 1069 H ALT 1386 H Alkaline Phosphata se 282 H Total Protein 6.2 L Albumin 3.6 Globulin 2.6 Lipase 13 Procalcitonin 04/27/21 06:05 WBC RBC Hgb Hct MCV MCH MCHC RDW Plt Count MPV Neut % (Auto) Lymph % (Auto) [place] % (Auto) Eos % (Auto) Baso % (Auto) Neut # (Auto) Lymph # (Auto) [place] # (Auto) Eos # (Auto) Baso # (Auto) Nucleated RBC % (a uto) Nucleated RBCs # Sodium Potassium Chloride Carbon Dioxide Anion Gap BUN Creatinine GFR Calculation Glucose Calculated Osmolal ity Lactate Calcium Total Bilirubin Direct Bilirubin AST ALT Alkaline Phosphata se Total Protein Albumin Globulin Lipase Procalcitonin 0.08 Vitals: Last Vital Signs Temp 98.4 F 04/28/21 08:00 Pulse 80 04/28/21 08:05 Resp 16 04/28/21 08:00 BP 125/73 04/28/21 08:00 Pulse Ox 95 04/28/21 08:00 Discharge Plan Discharge Patient Disposition: Home Condition: Stable Prescriptions: Continued aspirin [Adult Low Dose Aspirin] 81 mg tablet,delayed release (DR/EC) 81 mg PO DAILY RF: 0 lisinopril 2.5 mg tablet 2.5 mg PO DAILY RF: 0 clopidogrel 75 mg tablet 75 mg PO DAILY Qty: 90 RF: 3 atorvastatin 80 mg tablet 80 mg PO DAILY Qty: 90 RF: 3 cyclobenzaprine 5 mg tablet 5 mg PO QID PRN (Reason: Muscle Pain) RF: 0 Discharge Orders: Discharge Order (Routine); Ordered 04/28/21 Ordered By: Esequiel Tapia Referrals: Esequiel Tapia MD [Physician] - 1 week (Nursing: Please call Dr. Tapia's office ([phone]) and make an appointment for the patient to be seen next week.) Onofre Elise MD [Primary Care Provider] - Discharge Diet: Advance as tolerated Discharge Activity: Limit activity as instructed Patient Instructions: Opioid Safety Activity Restrictions/Additional Instructions: 1. Discharge to home today or when approved by the hospitalist service. 2. Appointment to see Dr. Tapia next week as above. 3. Bandages / bandaids off later today, leave Steri-Strip(s) on, may shower as discussed. No lifting over 20 pounds, no repetitive bending or twisting, no strenuous pushing / pulling or other heavy activity. Ambulate regularly. May go up and down steps if needed. Discharge Attestations Time Spent in Discharge Care*: less than 30 min Quality Metrics Clinical Quality Measures During this hospital stay, did patient experience: None Coding Level of Care Code Acute Chg FW [place] note Diagnoses Abnormal findings on diagnostic imaging of gallbladder R93.2 Abdominal pain, right upper quadrant R10.11
--- NOTE | 2021-04-28 09:38 | PC.CHAP ---
Pastoral Care Encounter/Spiritual Assessment Type of Contact [] Declined archery equipment repairer visit [] Patient/Family/Request visit [] Outpatient visit [] Follow-up visit [] Physician referral [] Code/Alert [x] Routine visit [] Staff referral [] Actively dying [] Patient sleeping [] Family support [] [] Out of room [] Palliative care [] [] Receiving care in room [] Pre-surgical visit [] Trauma [] Long length of stay [] ICU visit [] Other: Relational/Emotional Strength [x] Patient feels connected with others/family/visitors/staff [] Distress [] Loneliness/isolation [] Abandonment Spirituality of Patient [x] Person of Tawny [] Attends Yazidism of their Tawny [] Believes in Prayer [] Reads Bible or Cheondoism materials [] There are Spiritual issues to be addressed Netting Weaver Interventions [x] Prayer [x] Active listening [] Non-anxious presence [] Spiritual/emotional support [] Crisis/trauma care [] Spiritual counseling [] Bereavement support [] Provided bereavement packet [] Provided Bible/devotional materials [] Provided toy/stuffed animal, coloring book to patient or family member [] Provided Communion [] Anointing/[place] [] Salvation [] Completed spiritual assessment [] Other: Impact on Illness or Injury [] Angry [] Fearful [] Anxious [] Often cries [] Exhaustion [] Unable to work [] Unable to attend jain [] Unable to walk/stand [] Unable to read [] Unable to drive [] Unable to eat/drink [] Unable to sleep [] Unable to be with family [] Patient intubated [] Other: Summary patient feeling much better Time spent with patient 10 min
== END 2021-04-28 14:57 | disposition home or self-care (01) | DRG 419 ==
LOC: ER 12:14 → OPS 15:20 → MEDSURG 18:36
PROVIDERS: Family Medicine; Admitting Provider Internal Medicine; Emergency Provider Emergency Medicine; PCP Family Medicine; Visit Provider Surgery
PROC: 0FT44ZZ Resection of Gallbladder, Percutaneous Endoscopic Approach (ICD-10-PCS; CPT 47562; principal; 2021-04-27 17:40)
DX: K82.8 Other specified diseases of gallbladder (principal); R58 Hemorrhage, not elsewhere classified; I25.10 Atherosclerotic heart disease of native coronary artery without angina pectoris; I71.4 Abdominal aortic aneurysm, without rupture; J44.9 Chronic obstructive pulmonary disease, unspecified; E78.5 Hyperlipidemia, unspecified; I10 Essential (primary) hypertension; C61 Malignant neoplasm of prostate; Z95.5 Presence of coronary angioplasty implant and graft; Z87.891 Personal history of nicotine dependence; Z87.442 Personal history of urinary calculi; Z79.02 Long term (current) use of antithrombotics/antiplatelets; Z79.82 Long term (current) use of aspirin
CPT/HCPCS: 36415; 74177; 76705; 80048; 80053; 80076; 81001; 83605; 83690; 84145; 85025; 88304; 93005; 94640; 96365; 96372; 96375; 96376; 99285; C9113; J1100; J1170; J1644; J1885; J2270; J2405; J2543; J2704; J2710; J3010; J3490; J7030; J7614; Q9967

== ENCOUNTER 2021-04-30 07:46 | Outpatient (CLI) | payer OTHER, MEDICARE, SELFPAY ==
[2021-04-30 08:25] LABS: Alanine Aminotransferase 455 U/L (0-41); Albumin Level 3.6 g/dL (3.5-5.2); Alkaline Phosphatase 204 IU/L (40-130); Anion Gap 14.1 (5-19); Aspartate Amino Transferase 97 U/L (0-40); Blood Urea Nitrogen 8 mg/dL (8-23); Calcium 9.2 mg/dL (8.5-10.5); Carbon Dioxide 27 mmol/L (22-29); Chloride 102 mmol/L (98-107); Globulin 2.8 g/dL (1.3-4.6); Glucose 89 mg/dL (65-115); Osmolality Calculated 286 mOsm/kg (285-295); Potassium 4.1 mmol/L (3.5-5.1); Sodium 139 mmol/L (136-145); Total Bilirubin 0.5 mg/dL (0.15-1.2); Total Protein 6.4 g/dL (6.6-8.7)
== END 2021-04-30 07:47 | disposition home or self-care (01) ==
PROVIDERS: PCP Family Medicine; Visit Provider Internal Medicine
DX: K81.0 Acute cholecystitis (principal)
CPT/HCPCS: 36415; 80053

== ENCOUNTER 2021-06-19 03:20 | Emergency (ER) | payer OTHER, MEDICARE, SELFPAY ==
[2021-06-19 03:28] VITALS: BP 105/67; PULSE 97; RESP 16; TEMP 36; O2SAT 98; BMI 26.4
--- NOTE | 2021-06-19 03:35 | XRR_ITS ---
PROCEDURE INFORMATION: Exam: XR Chest Exam date and time: 06/19/2021 3:35 AM Age: 65 years old Clinical indication: Other: Syncope TECHNIQUE: Imaging protocol: XR of the chest. Views: 1 view. COMPARISON: CT abdomen pelvis w con* [id number] 04/27/2021 6:52 AM FINDINGS: Lungs: There is a background of emphysema and pulmonary fibrosis. There are some hazy and strandy opacities present the lower hemithoraces bilaterally, findings could represent bilateral basilar atelectasis although basilar pneumonitis cannot be entirely excluded. There are partially calcified nodularities seen in right hemithorax compatible with partially calcified granulomas. Pleural spaces: Unremarkable. No pleural effusion. No pneumothorax. Heart/Mediastinum: Unremarkable. No cardiomegaly. Bones/joints: Unremarkable. XR/XR chest 1V portable [id number] IMPRESSION: 1. Background of emphysema pulmonary fibrosis. 2. Hazy and strandy opacities in the lower hemithoraces compatible with atelectasis although bilateral basilar pneumonitis cannot be entirely excluded.
--- NOTE | 2021-06-19 03:36 | ECG_ITS ---
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 Measurements Intervals [place] Rate: 94 P: 57 HI: 180 QRS: 62 QRSD: 110 T: 80 QT: 349 QTc: 436 Interpretive Statements SINUS RHYTHM WITH OCCASIONAL VENTRICULAR PREMATURE COMPLEXES NONSPECIFIC ST & T-WAVE ABNORMALITY INTERPRETATION BASED ON A DEFAULT AGE OF 40 YEARS Compared to ECG 04/27/2021 12:13:28 Ventricular premature complex(es) now present Intraventricular conduction delay no longer present T-wave abnormality still present Electronically Signed On 06-19-2021 16:13:08 CDT by Crystal Garcia M.D. [id number] f
[2021-06-19] MEDS: sodium chloride 0.9% 1,000 ML 999 ML IV (03:45)
--- NOTE | 2021-06-19 03:46 | W.ED.SYNCOPE ---
HPI - Syncope General: Chief Complaint: Syncope Stated Complaint: low B/P Time Seen by Provider: 06/19/21 03:22 Source: patient Mode of arrival: ambulatory Limitations: no limitations History of Present Illness: HPI narrative: 65-year-old male states he been having diarrhea over the last 2 days. He states that it went up in the middle the night tonight went to the bathroom had diarrhea again and passed out when he stood up from the toilet. He states he has felt dehydrated. Denies any chest pain or abdominal pain. Denies any fever. He denies any his head when he fell. Associated symptoms: Deny fever(s) or headache(s) Review of Systems Const: Denies: fever(s), chills, body aches or change in appetite Eyes: Denies: blurry vision or eye discomfort ENMT: Denies: throat pain or dental pain Card: Reports: syncope Resp: Denies: dyspnea GI: Reports: diarrhea : Denies: dysuria Musc: Denies: neck pain or back pain Skin/Breast: Denies: rash Neuro: Denies: headache(s) Psych: Denies: depression Vlad/Lymph: Denies: easy bruising All/Imm: Denies: urticaria PFSH ED PFSH: Medical History Abdominal aortic aneurysm (AAA) CAD (coronary artery disease) COPD (chronic obstructive pulmonary disease) Dyslipidemia Elevated PSA Essential hypertension Presence of stent in LAD coronary artery Prostate CA Renal calculus, right S/P extracorporeal shock wave therapy Urolithiasis Surgical History History of cystoscopy Treatment of kidney stones / temporary stent placement S/P arterial stent Coronary stent x 2 Family History Sister Cancer Ovarian Mother , 85 Stroke Father , 85 CAD (coronary artery disease) Social History Smoking and tobacco status: former smoker Alcohol intake: current Alcohol intake frequency: few times a month Adopted: No Caregiver/support person: No Lives independently: No Household members: spouse Marital status: Current occupational status: retired History of recent travel: No Current gender identity: Male Physical Exam Const: COMMON NORMALS: no acute distress, patient oriented x3 and healthy appearing HENMT: COMMON NORMALS: normocephalic and atraumatic HEAD & SCALP: normocephalic and atraumatic Eye: COMMON NORMALS: Equal, round and reactive pupils present and EOMs intact bilaterally PUPIL: Yes Equal, round and reactive pupils present Neck/C-Spine: COMMON NORMALS: full ROM and supple Chest: COMMONS NORMALS: normal inspection of the chest and normal palpation of entire chest wall Resp: COMMON NORMALS: normal respiratory effort, No retractions, No use of accessory muscles and clear to auscultation bilaterally AUSCULTATION: clear to auscultation bilaterally Cardio: COMMON NORMALS: regular rate, regular rhythm and No murmurs present (Cardio) RATE: regular rate RHYTHM: regular rhythm GI: COMMON NORMALS: Normal to inspection, nondistended, normoactive bowel sounds present, Soft to palpation, non-tender and no masses PALPATION: Yes Soft to palpation Extremity: COMMON NORMALS: normal to inspection and full ROM Neuro: COMMON NORMALS: patient oriented x3, moves all extremities and no focal motor deficits Psych: COMMON NORMALS: mental status grossly normal, Normal thought process present and cooperative THOUGHT PROCESS: Normal thought process present Skin: COMMON NORMALS: no rashes or lesions noted and no wounds GENERAL SKIN EXAM: no rashes or lesions noted Course Vital Signs: Vital signs: Vital Signs Temperature 96.8 F L 06/19/21 03:28 Pulse Rate 97 06/19/21 03:28 Respiratory Rate 16 06/19/21 03:28 Blood Pressure 105/67 06/19/21 03:28 Pulse Oximetry 98 06/19/21 03:28 MDM - Syncope MDM Narrative: Medical decision making narrative: Patient presents here with syncopal event likely from dehydration from diarrhea. Syncope also likely due to vasovagal with a bowel movement. Patient's been well-appearing here and is feels back to normal. His blood pressures here been normal and orthostatics are normal. Patient gave a small stool sample and will run cultures. Lab Data: Labs: Lab Results 06/19/21 06/19/21 Range/Units 03:48 03:48 WBC 11.5 H (4.0-10.0) 10^3/ uL RBC 4.71 (4.1-5.3) 10^6/u L Hgb 15.7 (11.7-16.6) g/dL Hct 46.4 (42.0-52.0) % MCV 98.5 H (80-94) fl MCH 33.3 (28.0-34.0) pg MCHC 33.8 (30.0-36.0) g/dL RDW 13.3 (12.1-15.1) % Plt Count 152 (130-400) 10^3/c mm MPV 11.0 H (7.4-10.4) fL Neut % (Auto) 78.4 % Lymph % (Auto) 11.0 % [place] % (Auto) 9.3 % Eos % (Auto) 0.3 % Baso % (Auto) 0.8 % Neut # (Auto) 8.98 H (1.8-7.7) 10^3/u L Lymph # (Auto) 1.3 (0.8-4.8) 10^3/u L [place] # (Auto) 1.1 H (0.2-0.9) 10^3/u L Eos # (Auto) 0.0 (0.0-0.8) 10^3/u L Baso # (Auto) 0.1 (0.0-0.1) 10^3/u L Nucleated RBC % (a uto) 0 % Nucleated RBCs # 0.0 /100WBC Sodium 136 (136-145) mmol/L Potassium 3.2 L (3.5-5.1) mmol/L Chloride 103 (98-107) mmol/L Carbon Dioxide 19 L (22-29) mmol/L Anion Gap 17.2 (5-19) BUN 10 (8-23) mg/dL Creatinine 1.0 (0.7-1.2) mg/dL GFR Calculation 75.0 L (90-130) mL/min Glucose 105 (65-115) mg/dL Calculated Osmolal ity 281 L (285-295) mOsm/k g Calcium 8.7 (8.5-10.5) mg/dL Total Bilirubin 0.3 (0.15-1.2) mg/dL AST 22 (0-40) U/L ALT 28 (0-41) U/L Alkaline Phosphata se 107 (40-130) IU/L Total Protein 6.6 (6.6-8.7) g/dL Albumin 3.6 (3.5-5.2) g/dL Globulin 3.0 (1.3-4.6) g/dL Imaging Data^: CXR: Attestation: I personally reviewed and interpreted this imaging study as follows: Radiologist's impression: [address] [address] XRay Report Signed Patient: Eliceo Simpson Unit #: [id number] : 1955 Age/Sex: 65 / M ADM Date: 06/19/21 Loc: ER Room/Bed: Attending Dr: Ordering Provider/Ordering MD: Faisal Em MD Date of Service: 06/19/21 Procedure(s): XR chest 1V portable [id number] Accession Number(s): [id number] Report Number: [id number] PROCEDURE INFORMATION: Exam: XR Chest Exam date and time: 06/19/2021 3:35 AM Age: 65 years old Clinical indication: Other: Syncope TECHNIQUE: Imaging protocol: XR of the chest. Views: 1 view. COMPARISON: CT abdomen pelvis w con* [id number] 04/27/2021 6:52 AM FINDINGS: Lungs: There is a background of emphysema and pulmonary fibrosis. There are some hazy and strandy opacities present the lower hemithoraces bilaterally, findings could represent bilateral basilar atelectasis although basilar pneumonitis cannot be entirely excluded. There are partially calcified nodularities seen in right hemithorax compatible with partially calcified granulomas. Pleural spaces: Unremarkable. No pleural effusion. No pneumothorax. Heart/Mediastinum: Unremarkable. No cardiomegaly. Bones/joints: Unremarkable. XR/XR chest 1V portable [id number] IMPRESSION: 1. Background of emphysema pulmonary fibrosis. 2. Hazy and strandy opacities in the lower hemithoraces compatible with atelectasis although bilateral basilar pneumonitis cannot be entirely excluded. Dictated By: Francis Nuno MD Signed By: Francis Nuno MD Signed Date/Time: 06/19/21451 DD/ 0 EKG Data^: EKG 1: Attestation: I personally reviewed and interpreted this EKG as follows: EKG interpretation date: 06/19/21 EKG interpretation time: 03:38 Interpretation: nsr hr [address] or t wave abnormalities qrs 110 qtc 400 Discharge Plan Discharge Patient Disposition: Home Clinical Impression: Diarrhea Qualifiers: Diarrhea type: unspecified type Qualified Code(s): R19.7 - Diarrhea, unspecified Syncope Qualifiers: Syncope type: unspecified Qualified Code(s): R55 - Syncope and collapse Condition: Stable Prescriptions: No Action aspirin [Adult Low Dose Aspirin] 81 mg tablet,delayed release (DR/EC) 81 mg PO DAILY RF: 0 lisinopril 2.5 mg tablet 2.5 mg PO DAILY RF: 0 clopidogrel 75 mg tablet 75 mg PO DAILY Qty: 90 RF: 3 atorvastatin 80 mg tablet 80 mg PO DAILY Qty: 90 RF: 3 cyclobenzaprine 5 mg tablet 5 mg PO QID PRN (Reason: Muscle Pain) RF: 0 Discharge Orders: Discharge ED (Routine); Ordered 06/19/21 Ordered By: Faisal Em Referrals: Onofre Elise MD [Primary Care Provider] - 1-3 days Discharge Diet: Advance as tolerated Discharge Activity: Resume usual activity Patient Instructions: Diarrhea - Adult, Syncope (ED) Coding Level of Care Code ED Weigh And Charge Worker for Chg Fwd Exam Comprehensive
[2021-06-19 03:51] LABS: Basophils # 0.1 10^3/uL (0.0-0.1); Basophils % 0.8 %; Eosinophils % 0.3 %; Hematocrit 46.4 % (42.0-52.0); Hemoglobin 15.7 g/dL (11.7-16.6); Lymphocytes # 1.3 10^3/uL (0.8-4.8); Mean Corpuscular HGB Conc 33.8 g/dL (30.0-36.0); Mean Corpuscular Hemoglobin 33.3 pg (28.0-34.0); Mean Corpuscular Volume 98.5 fl (80-94); Monocytes # 1.1 10^3/uL (0.2-0.9); Monocytes % 9.3 %; Neutrophils # 8.98 10^3/uL (1.8-7.7); Neutrophils % 78.4 %; Nucleated Red Blood Cells % 0 %; Platelet Count 152 10^3/cmm (130-400); Red Blood Count 4.71 10^6/uL (4.1-5.3); Red Cell Distribution Width 13.3 % (12.1-15.1); White Blood Count 11.5 10^3/uL (4.0-10.0)
[2021-06-19 04:12] LABS: Alanine Aminotransferase 28 U/L (0-41); Albumin Level 3.6 g/dL (3.5-5.2); Alkaline Phosphatase 107 IU/L (40-130); Anion Gap 17.2 (5-19); Aspartate Amino Transferase 22 U/L (0-40); Blood Urea Nitrogen 10 mg/dL (8-23); Calcium 8.7 mg/dL (8.5-10.5); Carbon Dioxide 19 mmol/L (22-29); Chloride 103 mmol/L (98-107); Glucose 105 mg/dL (65-115); Osmolality Calculated 281 mOsm/kg (285-295); Potassium 3.2 mmol/L (3.5-5.1); Sodium 136 mmol/L (136-145); Total Bilirubin 0.3 mg/dL (0.15-1.2); Total Protein 6.6 g/dL (6.6-8.7)
[2021-06-19 04:34] VITALS: BP 115/77; BP 120/69; BP 130/71; PULSE 101; PULSE 105; PULSE 94
[2021-06-19] MEDS: diphenoxylate/atropine Tablet 1 TAB PO (05:15)
[2021-06-19 05:16] VITALS: BP 131/77; PULSE 100; RESP 18; O2SAT 96
== END 2021-06-19 05:18 | disposition home or self-care (01) ==
PROVIDERS: Emergency Provider Emergency Medicine; PCP Family Medicine
DX: R55 Syncope and collapse (principal); R19.7 Diarrhea, unspecified; Z79.82 Long term (current) use of aspirin; Z79.02 Long term (current) use of antithrombotics/antiplatelets; I25.10 Atherosclerotic heart disease of native coronary artery without angina pectoris; J44.9 Chronic obstructive pulmonary disease, unspecified; E78.5 Hyperlipidemia, unspecified; I10 Essential (primary) hypertension; Z85.46 Personal history of malignant neoplasm of prostate; Z87.891 Personal history of nicotine dependence
CPT/HCPCS: 71045; 80053; 85025; 87493; 87506; 93005; 96360; 99284; J7030

== ENCOUNTER 2021-07-12 07:04 | Outpatient (CLI) | payer OTHER, MEDICARE, SELFPAY ==
--- NOTE | 2021-07-12 07:15 | XR_ITS ---
WS: [id number] XR KUB [id number] REASON FOR EXAM: CALCULUS OF KIDNEY FINDINGS: Several small calculi overlie the central and upper portion of the right kidney. Largest calculus is approximately 4.4 mm. This is congruent with the CT scan of 04/27/2021. No left renal calculi are identified. No calculi along the abdominal course of the ureters is identified. No other abdominal abnormality is identified. Within the pelvis no calculus is identified along the course of the ureters or overlying the bladder. No other pelvic abnormality is identified. XR/XR KUB [id number] IMPRESSION: Right renal calculi as above.
== END 2021-07-12 07:05 | disposition home or self-care (01) ==
LOC: RAD 07:09
PROVIDERS: PCP Family Medicine; Visit Provider Urology
DX: N20.0 Calculus of kidney (principal)
CPT/HCPCS: 74018; 81003; 84153

== ENCOUNTER 2021-08-11 20:45 | Emergency (ER) | payer OTHER, MEDICARE, SELFPAY ==
[2021-08-11 20:57] VITALS: BP 105/66; PULSE 90; RESP 18; TEMP 37.1; O2SAT 95
--- NOTE | 2021-08-11 21:04 | ECG_ITS ---
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 Measurements Intervals [place] Rate: 82 P: 66 NV: 189 QRS: 64 QRSD: 110 T: 54 QT: 368 QTc: 431 Interpretive Statements SINUS RHYTHM ANTEROSEPTAL MYOCARDIAL INFARCTION , OF INDETERMINATE AGE [40+ ms Q WAVE IN V1-V4] Compared to ECG 06/19/2021 03:38:14 Myocardial infarct finding now present Ventricular premature complex(es) no longer present T-wave abnormality no longer present Electronically Signed On 08-12-2021 22:38:02 VOCATIONAL CHILDCARE TEACHER by Crystal Garcia M.D. [id number]
--- NOTE | 2021-08-11 21:04 | XRR_ITS ---
PROCEDURE INFORMATION: Exam: XR Chest Exam date and time: 08/11/2021 9:04 PM Age: 65 years old Clinical indication: Sternal or substernal pain; Additional info: Cp TECHNIQUE: Imaging protocol: XR of the chest. Views: 1 view. Total images: 1 COMPARISON: CR XR chest 1V portable [id number] 06/19/2021 3:54 AM FINDINGS: Lungs: No visible active interstitial or alveolar airspace disease. COPD/chronic bronchitis. Mild senile fibrosis. Calcified granulomas of antecedent disease. Pleural spaces: No pleural effusion. No pneumothorax. Heart/Mediastinum: Cardiac structures and configuration stable. Bones/joints: Unremarkable for age. XR/XR chest 1V portable [id number] IMPRESSION: Nonacute. Radiation Dose CTDIVOL = (mGy): DLP = (mGy-cm)
--- NOTE | 2021-08-11 21:12 | ED_ITS ---
HPI - Abdominal Pain General: Chief Complaint: Airway/Esophagus Foreign Body Stated Complaint: ABD Spasm Time Seen by Provider: 08/11/21 21:05 Source: patient Mode of arrival: ambulatory Limitations: no limitations History of Present Illness: HPI narrative: 65-year-old male states that roughly 11 today he is drinking a soda and eating chips started having severe abdominal chest pain. States been having a burning pain since then. States the pain is much improved if he lays on his left side personally lays flat. Denies any shortness of breath denies any vomiting or diarrhea. States the pain is a 3 out of 10 currently. Denies any antiacids and does not take any PPIs at home. Associated Symptoms: Reports nausea; Denies chills, dysuria and fever(s) Review of Systems Const: Denies: fever(s), chills, body aches or change in appetite Eyes: Denies: blurry vision or eye discomfort ENMT: Denies: throat pain or dental pain Card: Reports: chest pain Resp: Denies: dyspnea GI: Reports: abdominal pain and nausea : Denies: dysuria Musc: Denies: neck pain or back pain Skin/Breast: Denies: rash Neuro: Denies: headache(s) Psych: Denies: depression Vlad/Lymph: Denies: easy bruising All/Imm: Denies: urticaria PFSH ED PFSH: Medical History Abdominal aortic aneurysm (AAA) CAD (coronary artery disease) COPD (chronic obstructive pulmonary disease) Dyslipidemia Elevated PSA Essential hypertension Presence of stent in LAD coronary artery Prostate CA Radiation +1 injection of LHRH agonist. Completed 2018. Renal calculus, right S/P extracorporeal shock wave therapy Urolithiasis Surgical History History of cystoscopy Treatment of kidney stones / temporary stent placement S/P arterial stent Coronary stent x 2 Family History Sister Cancer Ovarian Mother , 85 Stroke Father , 85 CAD (coronary artery disease) Social History Smoking and tobacco status: former smoker Alcohol intake: current Alcohol intake frequency: few times a month Adopted: No Caregiver/support person: No Lives independently: No Household members: spouse Marital status: Current occupational status: retired History of recent travel: No Current gender identity: Male Physical Exam Const: COMMON NORMALS: no acute distress, patient oriented x3 and healthy appearing HENMT: COMMON NORMALS: normocephalic and atraumatic HEAD & SCALP: normocephalic and atraumatic Eye: COMMON NORMALS: Equal, round and reactive pupils present and EOMs intact bilaterally PUPIL: Yes Equal, round and reactive pupils present Neck/C-Spine: COMMON NORMALS: full ROM and supple Chest: COMMONS NORMALS: normal inspection of the chest and normal palpation of entire chest wall Resp: COMMON NORMALS: normal respiratory effort, No retractions, No use of accessory muscles and clear to auscultation bilaterally AUSCULTATION: clear to auscultation bilaterally Cardio: COMMON NORMALS: regular rate, regular rhythm and No murmurs present (Cardio) RATE: regular rate RHYTHM: regular rhythm GI: COMMON NORMALS: Normal to inspection, nondistended, normoactive bowel sounds present, Soft to palpation, non-tender and no masses PALPATION: Yes Soft to palpation Extremity: COMMON NORMALS: normal to inspection and full ROM Neuro: COMMON NORMALS: patient oriented x3, moves all extremities and no focal motor deficits Psych: COMMON NORMALS: mental status grossly normal, Normal thought process present and cooperative THOUGHT PROCESS: Normal thought process present Skin: COMMON NORMALS: no rashes or lesions noted and no wounds GENERAL SKIN EXAM: no rashes or lesions noted Course Vital Signs: Vital signs: Vital Signs Temperature 98.7 F 08/11/21 20:57 Pulse Rate 90 08/11/21 20:57 Respiratory Rate 22 H 08/11/21 23:14 Blood Pressure 105/66 08/11/21 20:57 Pulse Oximetry 98 08/11/21 23:14 MDM - Abdominal Pain MDM Narrative: Medical decision making narrative: 65-year-old male states that he drank a 7 8 chips earlier in the day and he started having severe burning in his abdomen and chest states he now feels like he has been having spasms in his chest for hours he states it is improved if he lays on his left side otherwise its painful he rates it a 7 out of 10 does have a history of heart disease denies any dyspnea denies any nausea or diaphoresis. Denies any vomiting. Lab Data: Labs: Lab Results 08/11/21 08/11/21 08/11/21 21:40 21:40 21:40 WBC 10.7 10^3/uL H 10 ^3/uL (4.0-10.0) RBC 4.34 10^6/uL 10^6 /uL (4.1-5.3) Hgb 14.4 g/dL g/dL (11.7-16.6) Hct 42.2 % % (42.0-52.0) MCV 97.2 fl H fl (80-94) MCH 33.2 pg pg (28.0-34.0) MCHC 34.1 g/dL g/dL (30.0-36.0) RDW 13.4 % % (12.1-15.1) Plt Count 192 10^3/cmm 10^3 /cmm (130-400) MPV 10.6 fL H fL (7.4-10.4) Neut % (Auto) 69.0 % % Lymph % (Auto) 17.9 % % [place] % (Auto) 9.5 % % Eos % (Auto) 2.1 % % Baso % (Auto) 1.1 % % Neut # (Auto) 7.41 10^3/uL 10^3 /uL (1.8-7.7) Lymph # (Auto) 1.9 10^3/uL 10^3/ uL (0.8-4.8) [place] # (Auto) 1.0 10^3/uL H 10^ 3/uL (0.2-0.9) Eos # (Auto) 0.2 10^3/uL 10^3/ uL (0.0-0.8) Baso # (Auto) 0.1 10^3/uL 10^3/ uL (0.0-0.1) Nucleated RBC % (a uto) 0 % % Nucleated RBCs # 0.0 /100WBC /100W BC Sodium 139 mmol/L mmol/L (136-145) Potassium 4.1 mmol/L mmol/L (3.5-5.1) Chloride 103 mmol/L mmol/L (98-107) Carbon Dioxide 27 mmol/L mmol/L (22-29) Anion Gap 13.1 (5-19) BUN 11 mg/dL mg/dL (8-23) Creatinine 0.9 mg/dL mg/dL (0.7-1.2) GFR Calculation 84.7 mL/min L mL/ min (90-130) Glucose 92 mg/dL mg/dL (65-115) Calculated Osmolal ity 287 mOsm/kg mOsm/ kg (285-295) Calcium 10.2 mg/dL mg/dL (8.5-10.5) Total Bilirubin 0.4 mg/dL mg/dL (0.15-1.2) AST 34 U/L U/L (0-40) ALT 36 U/L U/L (0-41) Alkaline Phosphata se 92 IU/L IU/L (40-130) Troponin T Baselin e 6 ng/L ng/L (0-15) Troponin T 120 Min erica Delta Troponin T Total Protein 6.3 g/dL L g/dL (6.6-8.7) Albumin 4.0 g/dL g/dL (3.5-5.2) Globulin 2.3 g/dL g/dL (1.3-4.6) Lipase 24 U/L U/L (13-60) 08/11/21 23:10 WBC RBC Hgb Hct MCV MCH MCHC RDW Plt Count MPV Neut % (Auto) Lymph % (Auto) [place] % (Auto) Eos % (Auto) Baso % (Auto) Neut # (Auto) Lymph # (Auto) [place] # (Auto) Eos # (Auto) Baso # (Auto) Nucleated RBC % (a uto) Nucleated RBCs # Sodium Potassium Chloride Carbon Dioxide Anion Gap BUN Creatinine GFR Calculation Glucose Calculated Osmolal ity Calcium Total Bilirubin AST ALT Alkaline Phosphata se Troponin T Baselin e Troponin T 120 Min erica 6.19 ng/L ng/L (0-15) Delta Troponin T 0.19 ABS# ABS# (0-10) Total Protein Albumin Globulin Lipase Imaging Data ^: CXR: Radiologist's impression: [facility] [address] [place] [address] XRay Report Signed Patient: Eliceo Simpson Unit #: [id number] : 1955 Age/Sex: 65 / M ADM Date: 08/11/21 Loc: ER Room/Bed: Attending Dr: Ordering Provider/Ordering MD: Faisal Em MD Date of Service: 08/11/21 Procedure(s): XR chest 1V portable [id number] Accession Number(s): [id number] Report Number: [id number] PROCEDURE INFORMATION: Exam: XR Chest Exam date and time: 08/11/2021 9:04 PM Age: 65 years old Clinical indication: Sternal or substernal pain; Additional info: Cp TECHNIQUE: Imaging protocol: XR of the chest. Views: 1 view. Total images: 1 COMPARISON: CR XR chest 1V portable [id number] 06/19/2021 3:54 AM FINDINGS: Lungs: No visible active interstitial or alveolar airspace disease. COPD/chronic bronchitis. Mild senile fibrosis. Calcified granulomas of antecedent disease. Pleural spaces: No pleural effusion. No pneumothorax. Heart/Mediastinum: Cardiac structures and configuration stable. Bones/joints: Unremarkable for age. XR/XR chest 1V portable [id number] IMPRESSION: Nonacute. Radiation Dose CTDIVOL = (mGy): DLP = (mGy-cm) Dictated By: Shailesh Horton Signed By: Shailesh Horton Signed Date/Time: 08/11/212129 DD/ 03 Discharge Plan Discharge Patient Disposition: Home Clinical Impression: Chest pain Condition: Stable Prescriptions: New Protonix 40 mg tablet,delayed release (DR/EC) 40 mg PO DAILY Qty: 60 RF: 0 No Action aspirin [Adult Low Dose Aspirin] 81 mg tablet,delayed release (DR/EC) 81 mg PO DAILY RF: 0 lisinopril 2.5 mg tablet 2.5 mg PO DAILY RF: 0 clopidogrel 75 mg tablet 75 mg PO DAILY Qty: 90 RF: 3 atorvastatin 80 mg tablet 80 mg PO DAILY Qty: 90 RF: 3 cyclobenzaprine 5 mg tablet 5 mg PO QID PRN (Reason: Muscle Pain) RF: 0 Discharge Orders: Discharge ED (Routine); Ordered 08/11/21 Ordered By: Faisal Em Referrals: Onofre Elise MD [Primary Care Provider] - 1-3 days Discharge Diet: Advance as tolerated Discharge Activity: Resume usual activity Patient Instructions: Chest Pain (ED) Coding Level of Care Code ED Piano Builder for Chg Fwd Exam Comprehensive
[2021-08-11] MEDS: lidocaine 2% viscous 15 ML, aluminum-mag hydrox-simethicon 30 ML, sucralfate oral liq 1 GM PO (21:44)
[2021-08-11 21:57] LABS: Basophils # 0.1 10^3/uL (0.0-0.1); Basophils % 1.1 %; Eosinophils # 0.2 10^3/uL (0.0-0.8); Eosinophils % 2.1 %; Hematocrit 42.2 % (42.0-52.0); Hemoglobin 14.4 g/dL (11.7-16.6); Lymphocytes # 1.9 10^3/uL (0.8-4.8); Lymphocytes % 17.9 %; Mean Corpuscular HGB Conc 34.1 g/dL (30.0-36.0); Mean Corpuscular Hemoglobin 33.2 pg (28.0-34.0); Mean Corpuscular Volume 97.2 fl (80-94); Mean Platelet Volume 10.6 fL (7.4-10.4); Monocytes % 9.5 %; Neutrophils # 7.41 10^3/uL (1.8-7.7); Nucleated Red Blood Cells % 0 %; Platelet Count 192 10^3/cmm (130-400); Red Blood Count 4.34 10^6/uL (4.1-5.3); Red Cell Distribution Width 13.4 % (12.1-15.1); White Blood Count 10.7 10^3/uL (4.0-10.0)
[2021-08-11 22:26] LABS: Troponin(5th) Baseline 6 ng/L (0-15)
[2021-08-11 22:27] LABS: Alanine Aminotransferase 36 U/L (0-41); Alkaline Phosphatase 92 IU/L (40-130); Anion Gap 13.1 (5-19); Aspartate Amino Transferase 34 U/L (0-40); Blood Urea Nitrogen 11 mg/dL (8-23); Calcium 10.2 mg/dL (8.5-10.5); Carbon Dioxide 27 mmol/L (22-29); Chloride 103 mmol/L (98-107); Globulin 2.3 g/dL (1.3-4.6); Glomerular Filtration Rate 84.7 mL/min (90-130); Glucose 92 mg/dL (65-115); Lipase 24 U/L (13-60); Osmolality Calculated 287 mOsm/kg (285-295); Potassium 4.1 mmol/L (3.5-5.1); Sodium 139 mmol/L (136-145); Total Bilirubin 0.4 mg/dL (0.15-1.2); Total Protein 6.3 g/dL (6.6-8.7)
[2021-08-11 23:14] VITALS: RESP 22; O2SAT 98
[2021-08-11] MEDS: ondansetron 2 mg/ML SDV 2 mL 4 MG IVP (23:14)
[2021-08-11] MEDS: morphine 4 mg/mL SDV 1 mL IVP (23:14)
[2021-08-11 23:53] LABS: Troponin 5 2HR 6.19 ng/L (0-15); Troponin 5 2HR Delta 0.19 ABS# (0-10)
[2021-08-12 00:18] VITALS: BP 119/72; PULSE 86; RESP 18; O2SAT 92
== END 2021-08-12 00:21 | disposition home or self-care (01) ==
PROVIDERS: Emergency Provider Emergency Medicine; PCP Family Medicine
DX: R07.9 Chest pain, unspecified (principal); Z79.82 Long term (current) use of aspirin; Z79.02 Long term (current) use of antithrombotics/antiplatelets; I25.10 Atherosclerotic heart disease of native coronary artery without angina pectoris; J44.9 Chronic obstructive pulmonary disease, unspecified; E78.5 Hyperlipidemia, unspecified; I10 Essential (primary) hypertension; Z85.46 Personal history of malignant neoplasm of prostate; Z87.891 Personal history of nicotine dependence
CPT/HCPCS: 71045; 80053; 83690; 84484; 85025; 93005; 96374; 96375; 99284; J2270; J2405

== ENCOUNTER 2022-07-12 07:53 | Outpatient (CLI) | payer OTHER, SELFPAY ==
--- NOTE | 2022-07-12 08:35 | XR_ITS ---
WS: [id number] KUB, AP view, 07/12/2022 Clinical Data: Urolithiasis Comparison: KUB, 07/12/2021. Findings: No abnormal intraabdominal masses are seen. There is no dilatated small bowel or evidence of obstruct ion. There are small right renal calcifications. There are clips overlying the right upper quadrant from a cholecystectomy. There is a large amount of air in the small bowel and colon. XR/XR KUB [id number] Impression: Right renal calculi.
== END 2022-07-12 07:54 | disposition home or self-care (01) ==
LOC: LAB 07:55
PROVIDERS: PCP Family Medicine; Visit Provider Urology
DX: N20.0 Calculus of kidney (principal); C61 Malignant neoplasm of prostate
CPT/HCPCS: 74018; 81003; 84153

== ENCOUNTER 2022-08-24 06:24 | Day surgery (SDC) | payer OTHER, SELFPAY ==
[2022-08-22 08:30] VITALS: BMI 26.4
[2022-08-24 06:36] VITALS: BP 123/76; PULSE 94; RESP 18; TEMP 36.4; O2SAT 96
[2022-08-24] MEDS: sodium chloride 0.9% 1,000 ML 30 ML IV (06:44)
--- NOTE | 2022-08-24 07:00 | ANES.PREANE2 ---
Pre-Anesthetic Assessment Height/Weight: Height 1.83 m Weight 88.451 kg Temp Pulse Resp BP Pulse Ox O2 Del Method 97.5 F L 94 18 123/76 96 08/24/22 06:36 08/24/22 06:36 08/24/22 06:36 08/24/22 06:36 08/24/22 06:36 08/24/22 06:36 Preop Diagnosis: Severe right upper quadrant pain, abnormal gallbladder on imaging. Operation Date: 08/24/22 07:45 Proposed Procedures p Colonoscopy 18063,Z12.11(Not Applicable) - Imtiaz Mcdaniel, DO Was Beta Tyshawn taken within 24 hours: N/A Was Clonidine taken within 24 hours: N/A Last intake: Intake Last Liquid Date 08/23/22 Last Liquid Time 21:00 Last Solid Date 08/22/22 Last Solid Time 21:00 Social No alcohol and No tobacco Exam alert, oriented x 3, clear to auscultation bilaterally and regular rate & rhythm Airway Submandibular: within normal limits Cervical ROM: within normal limits Mallampati: Class II Comments: Comments: dentures upper, natural lower History/ROS No significant history except as noted Pulmonary Chronic Obstructive Pulmonary Disease no inhaler or oxygen usage CV/HEM Hypertension and Myocardial Infarction heart attack in 2009, two stents, sees cardiology annually. off plavix for 1 week None reported Hepatic None reported GI occasional heartburn Metabolic None reported Musc/skel None reported Neuropsych None reported Anesthetic Plan ASA status: 3 Anesthesia: Anesthesia Evaluation and MAC Risk of > 500 ml blood loss (7ml/kg in children): Yes, adequate IV access and fluids planned Medications/Allergies Home Medications Medication Instructions Recorded Confirmed Last Taken Type aspirin 81 mg tablet,delayed 81 mg PO DAILY 12/10/19 08/24/22 08/21/22 History release (Adult Low Dose Aspirin) atorvastatin 80 mg tablet 80 mg PO DAILY 08/22/22 08/24/22 08/23/22 History clopidogrel 75 mg tablet 75 mg PO DAILY 08/22/22 08/24/22 08/15/22 History lisinopril 2.5 mg tablet 2.5 mg PO DAILY 08/22/22 08/24/22 08/23/22 History multivitamin 1 tab PO DAILY 08/22/22 08/24/22 08/15/22 History Allergies Allergy/AdvReac Type Severity Reaction Status Date / Time No Known Allergies Allergy Verified 08/24/22 06:34 Current Medications Generic Name Dose Route Start Last Admin Trade Name Kaz PRN Reason Stop Dose Admin Sodium Chloride 1,000 mls @ 30 mls/hr 08/24/22 06:30 08/24/22 06:44 Sodium Chloride 0.9% IV 08/25/22 06:29 30 mls/hr .Q24H MONIKA Administration PFSH Anesthesia Medical History (Updated 08/09/22 @ 15:28 by Imtiaz Mcdaniel DO) Abdominal aortic aneurysm (AAA) CAD (coronary artery disease) COPD (chronic obstructive pulmonary disease) Diarrhea Dyslipidemia Elevated PSA Essential hypertension Presence of stent in LAD coronary artery Prostate CA Radiation +1 injection of LHRH agonist. Completed 2018. Renal calculus, right S/P extracorporeal shock wave therapy Urolithiasis Surgical History History of cystoscopy Treatment of kidney stones / temporary stent placement Hx of cholecystectomy Hx of colonoscopy 10 + yrs ago S/P arterial stent Coronary stent x 2 Family History Sister Cancer Ovarian Mother , 85 Stroke Father , 85 CAD (coronary artery disease) Social History Smoking and tobacco status: former smoker Alcohol intake: current Alcohol intake frequency: few times a month Adopted: No Caregiver/support person: No Lives independently: No Household members: spouse Marital status: Current occupational status: retired History of recent travel: No Current gender identity: Male Data Anesthesia Cardiac Studies: No Data to Display
--- NOTE | 2022-08-24 07:24 | W.PM.OPSUD ---
Surgery/Procedure H&P Update DATE OF PROCEDURE: August 24, 2022 DATE H&P PERFORMED: 08/09/22 PREOP DIAGNOSIS: Colon Cancer Screening PLANNED PROCEDURE: Operation Date: 08/24/22 07:45 Proposed Procedures p Colonoscopy 18197,Z12.11(Not Applicable) - Imtiaz Mcdaniel DO
[2022-08-24 08:13] VITALS: BP 133/78; PULSE 88; RESP 16; TEMP 36.5; O2SAT 95
[2022-08-24 08:34] VITALS: BP 121/80; PULSE 92; RESP 18; O2SAT 97
--- NOTE | 2022-08-24 14:31 | ANE.PACU2 ---
Inpatient post-anesthesia follow up: Airway intact: Yes Vital signs: Temperature 97.7 F Pulse Rate 92 Respiratory Rate 18 Blood Pressure 121/80 Pulse Oximetry 97 Oxygen Delivery Me thod Room Air Oxygen Flow Rate 4 Fraction of Inspir ed Oxygen Hydration adequate: Yes Nausea and vomiting: No Pain level: 1 Mental status: Baseline
== END 2022-08-24 08:44 | disposition home or self-care (01) ==
PROVIDERS: PCP Family Medicine; Visit Provider Surgery
PROC: 0DJD8ZZ Inspection of Lower Intestinal Tract, Via Natural or Artificial Opening Endoscopic (ICD-10-PCS; CPT 45378; principal; 2022-08-24 07:45)
DX: Z12.11 Encounter for screening for malignant neoplasm of colon (principal); D12.2 Benign neoplasm of ascending colon; J44.9 Chronic obstructive pulmonary disease, unspecified; I10 Essential (primary) hypertension; I25.2 Old myocardial infarction; Z95.5 Presence of coronary angioplasty implant and graft; Z79.82 Long term (current) use of aspirin; I25.10 Atherosclerotic heart disease of native coronary artery without angina pectoris; E78.5 Hyperlipidemia, unspecified; Z85.46 Personal history of malignant neoplasm of prostate; Z87.891 Personal history of nicotine dependence
CPT/HCPCS: 45385; 82274; 83630; 87493; 87506; 88305; J2704; J7030

== ENCOUNTER → 2022-09-08 08:16 | Outpatient (BNVA) | payer OTHER, SELFPAY | PROVIDERS: PCP Family Medicine; Visit Provider Family Medicine | DX: I25.10 Atherosclerotic heart disease of native coronary artery without angina pectoris (principal); J84.10 Pulmonary fibrosis, unspecified; Z00.00 Encounter for general adult medical examination without abnormal findings | CPT/HCPCS: 80053; 80061; 85025 ==

== ENCOUNTER 2022-10-06 06:14 | Outpatient (CLI) | payer OTHER, SELFPAY ==
--- NOTE | 2022-10-06 06:20 | XRR_ITS ---
PROCEDURE INFORMATION: Exam: XR Chest Exam date and time: 10/06/2022 6:34 AM Age: 66 years old Clinical indication: Cough TECHNIQUE: Imaging protocol: Radiologic exam of the chest. Views: 2 views. COMPARISON: CR XR chest 1V portable [id number] 08/11/2021 9:10 PM FINDINGS: Lungs: The lungs are somewhat hyperinflated with increased interstitial markings, likely representing COPD. Streaky bibasilar atelectasis noted. Pneumonia should be excluded clinically. Pleural spaces: Unremarkable. No pleural effusion. No pneumothorax. Heart/Mediastinum: Stable cardiomediastinal silhouette. Bones/joints: Unremarkable. XR/XR chest 2V* [id number] IMPRESSION: Streaky bibasilar atelectasis. Pneumonia should be excluded clinically. COPD changes.
--- NOTE | 2022-10-06 06:20 | USCV_ITS ---
Eliceo Simpson Age: 66 Gender: M : 1955 Exam Date: 10/06/2022 06:27 Ordering Phys: Onofre Elise MD Technologist: PHUONG [place] [facility] [place]: F/U AAA HISTORY: Diameter (cm) AP x Transverse x Length Velocity (cm/s) Waveform Prox Aorta: 2.29 x 2.23 x 80.20 Triphasic Mid Aorta: 2.15 x 2.09 x 74.40 Triphasic Distal Aorta: 3.80 x 3.04 x 4.58 68.60 Triphasic Right Iliac Prox: 1.12 x 1.14 x 96.70 Triphasic Left Iliac Prox: 1.08 x 1.05 x 87.60 Triphasic Stent Prox Landing x x Aneurysmal Sac Max x x Lt Lat Sac Dim Rt Lat Sac Dim Stent Dist Landing x x Right Iliac Stent x x Left Iliac Stent x x Right Renal Art Left Renal Art FINDINGS: CONCLUSIONS Addendum: Comparison to CTA 11/15/22. Re-measured US images AAA by my measurements is 2.5 x 3.0 x 3.6cm similiar to CTA. Prior US measurements were generous including a portion of the wall Distal AAA measuring 3.8 x 3.0 x 4.5cm AP x transverse x CC. This is progressed compared to 2020 US. Recommend CTA in further evaluation. Previous measurements 2.6 x 2.8cm Normal common iliac arteries Chu Silva MD (Electronically Signed) Final Date: 06 October 2022 08:31 Amended: 17 November 2022 11:11 C
== END 2022-10-06 06:15 | disposition home or self-care (01) ==
LOC: RAD 06:15
PROVIDERS: PCP Family Medicine; Visit Provider Family Medicine
DX: J84.10 Pulmonary fibrosis, unspecified (principal); R05.9 Cough, unspecified; J98.11 Atelectasis
CPT/HCPCS: 71046; 93978

== ENCOUNTER 2022-10-25 07:05 | Outpatient (CLI) | payer OTHER, SELFPAY ==
--- NOTE | 2022-10-25 07:13 | XR_ITS ---
WS: [id number] Exam: XR KUB [id number] Date/Time of Exam: 10/25/2022 7:23 AM Reason For Exam: HEMATURIA No bowel obstruction or free air. Signs of prior cholecystectomy. Calcifications superimpose both kid neys and may represent renal calculi. Bony structures are intact. No sign of organ enlargement. XR/XR KUB [id number] IMPRESSION: 1. No acute abdominal finding. 2. Calcification superimpose both kidneys and may represent renal calculi.
== END 2022-10-25 07:06 | disposition home or self-care (01) ==
LOC: RAD 07:07
PROVIDERS: PCP Family Medicine; Visit Provider Urology
DX: R31.9 Hematuria, unspecified (principal); N20.0 Calculus of kidney
CPT/HCPCS: 74018; 81003

== ENCOUNTER 2022-11-15 14:40 | Outpatient (CLI) | payer OTHER, SELFPAY ==
--- NOTE | 2022-11-15 15:00 | CTR_ITS ---
PROCEDURE INFORMATION: Exam: CTA Abdominal Aorta and Bilateral Lower Extremities (Run-off) With Contrast Exam date and time: 11/15/2022 3:39 PM Age: 66 years old Clinical indication: Condition or disease; Other: Aaa; Prior surgery; Surgery type: Cystoscopy, colonoscopy, arterial stent; Patient HX: History of prostate cancer; Additional info: Increasing aaa on US TECHNIQUE: Imaging protocol: Computed tomographic angiography of the of the abdominal aorta, pelvis and bilateral lower extremities with contrast. 3D rendering (Not supervised by radiologist): MIP and/or 3D reconstructed images were created by the technologist. Radiation optimization: All CT scans at this facility use at least one of these dose optimization techniques: automated exposure control; mA and/or kV adjustment per patient size (includes targeted exams where dose is matched to clinical indication); or iterative reconstruction. Contrast material: OMNI 350; Contrast volume: 100 ml; Contrast route: INTRAVENOUS (IV); Other protocol: This patient has received 0 known CTs and 0 known cardiac nuclear medicine studies in the 12 months prior to the current study. COMPARISON: CT abdomen pelvis w con* [id number] 04/27/2021 6:52 AM RADIATION DOSE METRICS: Total DLP (mGy-cm): 614.45 FINDINGS: Aorta: Abdominal aorta is atherosclerotic, and measures up to 2.5 cm in diameter. No aortic dissection. Celiac trunk and mesenteric arteries: No occlusion or significant stenosis. Renal arteries: No occlusion or significant stenosis. Right iliac arteries: Right iliac arteries are atherosclerotic. No stenosis or aneurysm. Right femoral/popliteal arteries: Right proximal femoral arteries demonstrate mild atherosclerosis. No focal stenosis. Right popliteal arteries are unremarkable. Right infrapopliteal arteries: Right infrapopliteal arteries are unremarkable. Left iliac arteries: Left iliac arteries are atherosclerotic. No stenosis or aneurysm. Left femoral/popliteal arteries: Left femoral arteries demonstrate mild atherosclerosis. No focal stenosis. Left popliteal artery is unremarkable. Left infrapopliteal arteries: Left infrapopliteal arteries demonstrate minimal atherosclerosis proximally. No stenosis or occlusion. Lungs: The lung bases appear unremarkable. Liver: Calcified granulomas are seen in the liver. Gallbladder and bile ducts: The gallbladder is surgically absent. Pancreas: The pancreas is normal in appearance. No pancreatic duct dilatation. Spleen: Calcified granulomas are noted in the spleen. Adrenal glands: Unremarkable. No mass. Kidneys and ureters: Multiple nonobstructing right renal calculi noted, measuring up to 7 mm. No hydronephrosis. No right ureteral calculus. No right obstructive uropathy. Left kidney is unremarkable. Stomach and bowel: No acute gastric abnormality demonstrated. The small bowel is unremarkable as demonstrated. No acute abnormality/inflammatory change of the colon. Appendix: The appendix is normal in appearance. No evidence of appendicitis. Urinary bladder: The urinary bladder is unremarkable in appearance. Reproductive: Unremarkable as visualized. Intraperitoneal space: No pneumoperitoneum. No significant fluid collection. Lymph nodes: No pathologically enlarged lymph nodes are demonstrated. Bones/joints: No acute osseous abnormality. Soft tissues: Small right inguinal hernia noted, containing only fat. CT/CT angio abd aorta runof [id number] IMPRESSION: 1. Abdominal aorta is atherosclerotic, and measures up to 2.5 cm in diameter. No aortic dissection. This aneurysm is unchanged in appearance from CT abdomen and pelvis dated 04/27/2021. 2. No significant arterial stenosis demonstrated in the bilateral lower extremities. 3. Multiple nonobstructing right renal calculi noted, measuring up to 7 mm. No hydronephrosis. No right ureteral calculus. No right obstructive uropathy.
[2022-11-15] MEDS: iohexol 350 mg/mL 500 mL Btl (per mL) IV (15:02)
== END 2022-11-15 14:41 | disposition home or self-care (01) ==
PROVIDERS: PCP Family Medicine; Visit Provider Family Medicine
DX: I71.40 Abdominal aortic aneurysm, without rupture, unspecified (principal); J84.10 Pulmonary fibrosis, unspecified; N20.0 Calculus of kidney
CPT/HCPCS: 75635; Q9967

== ENCOUNTER 2022-11-21 10:44 | Outpatient (CLI) | payer OTHER, SELFPAY ==
[2022-11-21] MEDS: iohexol 350 mg/mL 500 mL Btl (per mL) IV (10:47)
--- NOTE | 2022-11-21 11:00 | CT_ITS ---
WS: [id number] CT CHEST WITH INTRAVENOUS CONTRAST HISTORY: abnormal chest x-ray/ smoker TECHNIQUE: Contiguous 5 mm axial imaging performed on the thorax. Coronal and sagittal reformats are submitted. All CT scans at [facility] use at least one of these dose optimization techniques: automated exposure control; mA and/or kV adjustment per patient size (includes targeted exams where dose is matched to clinical indication); or iterative reconstruction. CONTRAST: Omnipaque 350; 100 mL IV. DLP: 474.35 mGy.cm COMPARISON: Radiograph 10/06/2022 Lungs and central airway: Pulmonary hyperexpansion. Moderate centrilobular and paraseptal emphysema i n the upper lung olivo. Mild biapical pleural thickening and fibrosis. There are a few scattered humphrey ateral calcified granulomata. 4 mm nodule along the RIGHT minor fissure. No dense areas of consolidat ion or pneumonia. Interstitial thickening in the lower lung olivo is probably due to respiratory bro nchiolitis. No mass. Pleura: No pleural effusion. LEFT pleural calcified plaque in the anterior upper lobe. Heart and pericardium: Normal size heart with no pericardial effusion. Mediastinum and sully: No mediastinum or hilar adenopathy. Vessels: Mildly ectatic thoracic aorta. Normal size pulmonary artery. Extensive coronary artery calci fications. Most significant coronary artery calcifications in the LAD and circumflex artery. Chest wall and lower neck: No soft tissue masses. Upper abdomen: Prior cholecystectomy. Hepatic and splenic granulomata. Small hiatal hernia. Osseous structures: No destructive process. CT/CT chest w con* [id number] IMPRESSION: 1. Centrilobular and paraseptal emphysema. 2. No pneumonia. No mass. 3. Prior granulomatous disease. 4. Moderate coronary artery atherosclerosis. 5. LEFT upper lobe pleural plaque. May be related to asbestosis or prior pleur al injury with healing.
== END 2022-11-21 10:45 | disposition home or self-care (01) ==
PROVIDERS: PCP Family Medicine; Visit Provider Family Medicine
DX: R93.89 Abnormal findings on diagnostic imaging of other specified body structures (principal); F17.210 Nicotine dependence, cigarettes, uncomplicated; J43.2 Centrilobular emphysema; I25.10 Atherosclerotic heart disease of native coronary artery without angina pectoris
CPT/HCPCS: 71260; Q9967

== ENCOUNTER → 2022-11-30 14:04 | Outpatient (BNVA) | payer OTHER, SELFPAY | PROVIDERS: PCP Family Medicine; Visit Provider Clinical Nurse Specialist Adult Health | DX: M54.50 Low back pain, unspecified (principal); R35.0 Frequency of micturition; N30.01 Acute cystitis with hematuria; J06.9 Acute upper respiratory infection, unspecified | CPT/HCPCS: 81000; 87086 ==

== ENCOUNTER → 2022-12-06 12:33 | Outpatient (BNVA) | payer OTHER, SELFPAY | PROVIDERS: PCP Family Medicine; Visit Provider Family Medicine | DX: R31.9 Hematuria, unspecified (principal); R80.9 Proteinuria, unspecified | CPT/HCPCS: 80053; 81003; 85025; 87077; 87086; 87184 ==

== ENCOUNTER 2022-12-23 07:25 | Inpatient (IN) | payer OTHER, MEDICARE, SELFPAY ==
[2022-12-23] VITALS (64 sets, daily range): BP systolic 100–136; BP diastolic 55–80; PULSE 60–95; RESP 12–24; TEMP 36.5–36.6; O2SAT 95–97; BMI 26.6
--- NOTE | 2022-12-23 07:28 | XR_ITS ---
WS: [id number] EXAMINATION: XR chest 1V portable [id number] REASON FOR EXAM: cp COMPARISON: 10/06/2022 ORDER DATE: 12/23/2022 7:36 AM TECHNIQUE: A single, portable frontal chest x-ray was obtained. FINDINGS: Lungs: There is a round nodule near the right costophrenic angle not 8 mm in diameter not seen on the previous study lungs are somewhat hyperinflated with increased interstitial markings, likely represe nting COPD. Streaky bibasilar atelectasis noted. Pneumonia should be excluded clinically. Pleural spaces: Unremarkable. No pleural effusion. No pneumothorax. Heart/Mediastinum: Stable cardiomediastinal silhouette. Bones/joints: Unremarkable. XR/XR chest 1V portable [id number] IMPRESSION: Streaky bibasilar atelectasis. Pneumonia should be excluded clinically. COPD Nodule in the right costophrenic angle possibly a nipple shadow. Clinical corre lation suggested with nipple markers placed for repeat study
--- NOTE | 2022-12-23 07:28 | ECG_ITS ---
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 Measurements Intervals [place] Rate: 73 P: 35 DE: 182 QRS: 29 QRSD: 114 T: 35 QT: 373 QTc: 412 Interpretive Statements SINUS RHYTHM MODERATE INTRAVENTRICULAR CONDUCTION DELAY [110+ ms QRS DURATION] Compared to ECG 08/11/2021 21:31:09 Intraventricular conduction delay now present Myocardial infarct finding no longer present Electronically Signed On 12-23-2022 22:59:55 CDT by Crystal Garcia M.D. [id number]
--- NOTE | 2022-12-23 07:37 | ED_ITS ---
Documented by User: Faisal Em MD 12/23/22 07:40 HPI - Chest Pain General: Chief Complaint: Chest Pain Stated Complaint: Chest Tightness Time Seen by Provider: 12/23/22 07:32 Source: patient Mode of arrival: ambulatory Limitations: no limitations History of Present Illness: 67-year-old male states he woke up this morning at 630 he was having some chest pain he states is a pressure type pain he had some dizziness along with felt clammy states the pain lasted an hour and since resolved he is currently pain-free does have a history of coronary artery disease he had a stent back in 2008 denies any shortness of breath denies any worsening improving factors. Associated symptoms: Deny abdominal pain, dyspnea, fever(s), nausea or vomiting Review of Systems Const: Denies: fever(s), chills, body aches or change in appetite Eyes: Denies: blurry vision or eye discomfort ENMT: Denies: throat pain or dental pain Card: Reports: chest pain Resp: Denies: dyspnea GI: Denies: abdominal pain, nausea, vomiting or diarrhea : Denies: dysuria Musc: Denies: neck pain or back pain Skin/Breast: Denies: rash Neuro: Denies: headache(s) Psych: Denies: depression Vlad/Lymph: Denies: easy bruising All/Imm: Denies: urticaria PFSH ED PFSH: Medical History Abdominal aortic aneurysm (AAA) CAD (coronary artery disease) COPD (chronic obstructive pulmonary disease) Diarrhea Dyslipidemia Elevated PSA Essential hypertension Presence of stent in LAD coronary artery Prostate CA Radiation +1 injection of LHRH agonist. Completed 2018. Pulmonary fibrosis Renal calculus, right S/P extracorporeal shock wave therapy Tubular adenoma of colon Urolithiasis Surgical History History of cystoscopy Treatment of kidney stones / temporary stent placement Hx of cholecystectomy Hx of colonoscopy 10 + yrs ago S/P arterial stent Coronary stent x 2 Family History Sister Cancer Ovarian Mother , 85 Stroke Father , 85 CAD (coronary artery disease) Social History (Reviewed 12/23/22 @ 10:47 by ALYSON Barnett Smoking and tobacco status: former smoker Alcohol intake: current Alcohol intake frequency: few times a month Adopted: No Caregiver/support person: No Lives independently: No Household members: spouse Marital status: Current occupational status: retired Current gender identity: Male Physical Exam Const: COMMON NORMALS: no acute distress, patient oriented x3 and healthy appearing HENMT: COMMON NORMALS: normocephalic and atraumatic HEAD & SCALP: normocephalic and atraumatic Eye: COMMON NORMALS: Equal, round and reactive pupils present and EOMs intact bilaterally PUPIL: Yes Equal, round and reactive pupils present Neck/C-Spine: COMMON NORMALS: full ROM and supple Chest: COMMONS NORMALS: normal inspection of the chest and normal palpation of entire chest wall Resp: COMMON NORMALS: normal respiratory effort, No retractions, No use of accessory muscles and clear to auscultation bilaterally AUSCULTATION: clear to auscultation bilaterally Cardio: COMMON NORMALS: regular rate, regular rhythm and No murmurs present (Cardio) RATE: regular rate RHYTHM: regular rhythm GI: COMMON NORMALS: Normal to inspection, nondistended, normoactive bowel sounds present, Soft to palpation, non-tender and no masses PALPATION: Yes Soft to palpation Extremity: COMMON NORMALS: normal to inspection and full ROM Neuro: COMMON NORMALS: patient oriented x3, moves all extremities and no focal motor deficits Psych: COMMON NORMALS: mental status grossly normal, Normal thought process present and cooperative THOUGHT PROCESS: Normal thought process present Skin: COMMON NORMALS: no rashes or lesions noted and no wounds GENERAL SKIN EXAM: no rashes or lesions noted Course Vital Signs: Vital signs: Vital Signs Temperature 97.8 F 12/23/22 07:45 Pulse Rate 75 12/23/22 10:00 Respiratory Rate 16 12/23/22 10:00 Blood Pressure 130/80 12/23/22 10:00 Pulse Oximetry 95 12/23/22 10:00 Oxygen Delivery Me thod 12/23/22 07:45 MDM - Chest Pain Lab Data 12/23/22 07:55 12/23/22 07:55 Radiology Impressions Chest X-Ray 12/23/22 07:28 IMPRESSION: Streaky bibasilar atelectasis. Pneumonia should be excluded clinically. COPD Nodule in the right costophrenic angle possibly a nipple shadow. Clinical correlation suggested with nipple markers placed for repeat study Laboratory Results WBC 3.8 10^3/uL (4.0-10.0) L 12/23/22 07:55 RBC 4.57 10^6/uL (4.1-5.3) 12/23/22 07:55 Hgb 15.0 g/dL (11.7-16.6) 12/23/22 07:55 Hct 44.8 % (42.0-52.0) 12/23/22 07:55 MCV 98.0 fl (80-94) H 12/23/22 07:55 MCH 32.8 pg (28.0-34.0) 12/23/22 07:55 MCHC 33.5 g/dL (30.0-36.0) 12/23/22 07:55 RDW 13.4 % (12.1-15.1) 12/23/22 07:55 Plt Count 166 10^3/cmm (130-400) 12/23/22 07:55 MPV 10.6 fL (7.4-10.4) H 12/23/22 07:55 Neut % (Auto) 41.6 % 12/23/22 07:55 Lymph % (Auto) 34.4 % 12/23/22 07:55 [place] % (Auto) 14.3 % 12/23/22 07:55 Eos % (Auto) 7.6 % 12/23/22 07:55 Baso % (Auto) 1.8 % 12/23/22 07:55 Neut # (Auto) 1.60 10^3/uL (1.8-7.7) L 12/23/22 07:55 Lymph # (Auto) 1.3 10^3/uL (0.8-4.8) 12/23/22 07:55 [place] # (Auto) 0.6 10^3/uL (0.2-0.9) 12/23/22 07:55 Eos # (Auto) 0.3 10^3/uL (0.0-0.8) 12/23/22 07:55 Baso # (Auto) 0.1 10^3/uL (0.0-0.1) 12/23/22 07:55 Nucleated RBC % (auto) 0 % 12/23/22 07:55 Nucleated RBCs # 0.0 /100WBC 12/23/22 07:55 Sodium 138 mmol/L (136-145) 12/23/22 07:55 Potassium 3.9 mmol/L (3.5-5.1) 12/23/22 07:55 Chloride 104 mmol/L (98-107) 12/23/22 07:55 Carbon Dioxide 25 mmol/L (22-29) 12/23/22 07:55 Anion Gap 12.9 (5-19) 12/23/22 07:55 BUN 9 mg/dL (8-23) 12/23/22 07:55 Creatinine 1.0 mg/dL (0.7-1.2) 12/23/22 07:55 GFR Calculation 74.5 mL/min (90-130) L 12/23/22 07:55 Glucose 97 mg/dL (65-115) 12/23/22 07:55 Calculated Osmolality 285 mOsm/kg (285-295) 12/23/22 07:55 Calcium 8.8 mg/dL (8.5-10.5) 12/23/22 07:55 Total Bilirubin 0.3 mg/dL (0.15-1.2) 12/23/22 07:55 AST 29 U/L (0-40) 12/23/22 07:55 ALT 27 U/L (0-41) 12/23/22 07:55 Alkaline Phosphatase 93 U/L (40-130) 12/23/22 07:55 Troponin T Baseline 6 ng/L (0-15) 12/23/22 07:41 Troponin T 120 Minute 6.04 ng/L (0-15) 12/23/22 09:25 Delta Troponin T 0.04 ABS# (0-10) 12/23/22 09:25 NT-Pro-B Natriuret Pep 53 pg/mL (0-125) 12/23/22 07:55 Total Protein 6.3 g/dL (6.6-8.7) L 12/23/22 07:55 Albumin 3.7 g/dL (3.5-5.2) 12/23/22 07:55 Globulin 2.6 g/dL (1.3-4.6) 12/23/22 07:55 EKG Data EKG 1: I personally reviewed and interpreted this EKG as follows: EKG interpretation date: 12/23/22 EKG interpretation time: 07:39 Interpretation: nsr hr [address] or t wave abnormalities qrs 114 qtc 399 Discharge Plan Discharge Patient Disposition: Admitted As Inpatient Clinical Impression: Unstable angina pectoris, CAD (coronary artery disease) Condition: Stable Prescriptions: No Action aspirin [Adult Low Dose Aspirin] 81 mg tablet,delayed release (DR/EC) 81 mg PO QAM benzonatate 100 mg capsule 100 mg PO TID PRN (Reason: cough) Qty: 45 0RF Nitrostat 0.4 mg Tablet, Sublingual 0.4 mg SUBLINGUAL Q5M PRN (Reason: Chest Pain) Rx Instructions: do not exceed 3 doses per episode NyQuil Liquicaps Capsule 2 cap PO BEDTIME atorvastatin 80 mg tablet 80 mg PO QAM lisinopril 2.5 mg tablet 2.5 mg PO QAM multivitamin Tablet 0.5 tab PO QAM clopidogrel 75 mg tablet 75 mg PO QAM Hold Instructions: Resume on 08/27/22. Referrals: Onofre Elise MD [Primary Care Provider] - Sign Out Sign Out Data: Patient Sign Out occurred on 12/23/22 at 08:22. Patient's care was discussed, and care was transferred from to Kamari Lai DO. Coding Level of Care Code ED Oil Treater for Chg Fwd Documented by User: Kamari Lai DO 12/23/22 10:50 HPI - Chest Pain General: Chief Complaint: Chest Pain Stated Complaint: Chest Tightness Time Seen by Provider: 12/23/22 07:32 PFSH ED PFSH: Medical History Abdominal aortic aneurysm (AAA) CAD (coronary artery disease) COPD (chronic obstructive pulmonary disease) Diarrhea Dyslipidemia Elevated PSA Essential hypertension Presence of stent in LAD coronary artery Prostate CA Radiation +1 injection of LHRH agonist. Completed 2017. Pulmonary fibrosis Renal calculus, right S/P extracorporeal shock wave therapy Tubular adenoma of colon Urolithiasis Surgical History History of cystoscopy Treatment of kidney stones / temporary stent placement Hx of cholecystectomy Hx of colonoscopy 10 + yrs ago S/P arterial stent Coronary stent x 2 Family History Sister Cancer Ovarian Mother , 85 Stroke Father , 85 CAD (coronary artery disease) Social History Smoking and tobacco status: former smoker Alcohol intake: current Alcohol intake frequency: few times a month Adopted: No Caregiver/support person: No Lives independently: No Household members: spouse Marital status: Current occupational status: retired Current gender identity: Male Course Vital Signs: Vital signs: Vital Signs Temperature 97.8 F 12/23/22 07:45 Pulse Rate 75 12/23/22 10:00 Respiratory Rate 16 12/23/22 10:00 Blood Pressure 130/80 12/23/22 10:00 Pulse Oximetry 95 12/23/22 10:00 Oxygen Delivery Me thod 12/23/22 07:45 MDM - Chest Pain Medical Decision Making Care assumed from Dr. Em at change of shift. Cardiac enzymes and EKGs are negative. Patient's heart score elevated has a known history of coronary disease he is describing escalating angina over a long period of time. He now is unstable angina even while here he is intermittently getting chest discomfort. We will start him on heparin also place topical nitro. reviewed his notes there is a September 10, [address] Euceda describing his stents in the right coronary artery in the proximal LAD. In 2010 he had had a negative stress test. He has not had any kind of cardiac evaluation since. Discussed with Dr. Melara. Will admit and he is planning on doing an angiogram tomorrow. Medical Records I reviewed the patient's medical records. Lab Data I reviewed the patient's lab results. 12/23/22 07:55 12/23/22 07:55 Radiology Impressions Chest X-Ray 12/23/22 07:28 IMPRESSION: Streaky bibasilar atelectasis. Pneumonia should be excluded clinically. COPD Nodule in the right costophrenic angle possibly a nipple shadow. Clinical correlation suggested with nipple markers placed for repeat study Laboratory Results WBC 3.8 10^3/uL (4.0-10.0) L 12/23/22 07:55 RBC 4.57 10^6/uL (4.1-5.3) 12/23/22 07:55 Hgb 15.0 g/dL (11.7-16.6) 12/23/22 07:55 Hct 44.8 % (42.0-52.0) 12/23/22 07:55 MCV 98.0 fl (80-94) H 12/23/22 07:55 MCH 32.8 pg (28.0-34.0) 12/23/22 07:55 MCHC 33.5 g/dL (30.0-36.0) 12/23/22 07:55 RDW 13.4 % (12.1-15.1) 12/23/22 07:55 Plt Count 166 10^3/cmm (130-400) 12/23/22 07:55 MPV 10.6 fL (7.4-10.4) H 12/23/22 07:55 Neut % (Auto) 41.6 % 12/23/22 07:55 Lymph % (Auto) 34.4 % 12/23/22 07:55 [place] % (Auto) 14.3 % 12/23/22 07:55 Eos % (Auto) 7.6 % 12/23/22 07:55 Baso % (Auto) 1.8 % 12/23/22 07:55 Neut # (Auto) 1.60 10^3/uL (1.8-7.7) L 12/23/22 07:55 Lymph # (Auto) 1.3 10^3/uL (0.8-4.8) 12/23/22 07:55 [place] # (Auto) 0.6 10^3/uL (0.2-0.9) 12/23/22 07:55 Eos # (Auto) 0.3 10^3/uL (0.0-0.8) 12/23/22 07:55 Baso # (Auto) 0.1 10^3/uL (0.0-0.1) 12/23/22 07:55 Nucleated RBC % (auto) 0 % 12/23/22 07:55 Nucleated RBCs # 0.0 /100WBC 12/23/22 07:55 Sodium 138 mmol/L (136-145) 12/23/22 07:55 Potassium 3.9 mmol/L (3.5-5.1) 12/23/22 07:55 Chloride 104 mmol/L (98-107) 12/23/22 07:55 Carbon Dioxide 25 mmol/L (22-29) 12/23/22 07:55 Anion Gap 12.9 (5-19) 12/23/22 07:55 BUN 9 mg/dL (8-23) 12/23/22 07:55 Creatinine 1.0 mg/dL (0.7-1.2) 12/23/22 07:55 GFR Calculation 74.5 mL/min (90-130) L 12/23/22 07:55 Glucose 97 mg/dL (65-115) 12/23/22 07:55 Calculated Osmolality 285 mOsm/kg (285-295) 12/23/22 07:55 Calcium 8.8 mg/dL (8.5-10.5) 12/23/22 07:55 Total Bilirubin 0.3 mg/dL (0.15-1.2) 12/23/22 07:55 AST 29 U/L (0-40) 12/23/22 07:55 ALT 27 U/L (0-41) 12/23/22 07:55 Alkaline Phosphatase 93 U/L (40-130) 12/23/22 07:55 Troponin T Baseline 6 ng/L (0-15) 12/23/22 07:41 Troponin T 120 Minute 6.04 ng/L (0-15) 12/23/22 09:25 Delta Troponin T 0.04 ABS# (0-10) 12/23/22 09:25 NT-Pro-B Natriuret Pep 53 pg/mL (0-125) 12/23/22 07:55 Total Protein 6.3 g/dL (6.6-8.7) L 12/23/22 07:55 Albumin 3.7 g/dL (3.5-5.2) 12/23/22 07:55 Globulin 2.6 g/dL (1.3-4.6) 12/23/22 07:55 Discharge Plan Discharge Patient Disposition: Admitted As Inpatient Clinical Impression: Unstable angina pectoris, CAD (coronary artery disease) Condition: Stable Prescriptions: No Action aspirin [Adult Low Dose Aspirin] 81 mg tablet,delayed release (DR/EC) 81 mg PO QAM benzonatate 100 mg capsule 100 mg PO TID PRN (Reason: cough) Qty: 45 0RF Nitrostat 0.4 mg Tablet, Sublingual 0.4 mg SUBLINGUAL Q5M PRN (Reason: Chest Pain) Rx Instructions: do not exceed 3 doses per episode NyQuil Liquicaps Capsule 2 cap PO BEDTIME atorvastatin 80 mg tablet 80 mg PO QAM lisinopril 2.5 mg tablet 2.5 mg PO QAM multivitamin Tablet 0.5 tab PO QAM clopidogrel 75 mg tablet 75 mg PO QAM Hold Instructions: Resume on 08/27/22. Referrals: Onofre Elise MD [Primary Care Provider] - Sign Out Sign Out Data: Patient Sign Out occurred on 12/23/22 at 08:22. Patient's care was discussed, and care was transferred from to Kamari Lai DO. Coding Level of Care Code ED Oil Treater for Judy Dang
[2022-12-23 08:02] LABS: Basophils # 0.1 10^3/uL (0.0-0.1); Basophils % 1.8 %; Eosinophils # 0.3 10^3/uL (0.0-0.8); Eosinophils % 7.6 %; Hematocrit 44.8 % (42.0-52.0); Lymphocytes # 1.3 10^3/uL (0.8-4.8); Lymphocytes % 34.4 %; Mean Corpuscular HGB Conc 33.5 g/dL (30.0-36.0); Mean Corpuscular Hemoglobin 32.8 pg (28.0-34.0); Mean Platelet Volume 10.6 fL (7.4-10.4); Monocytes # 0.6 10^3/uL (0.2-0.9); Monocytes % 14.3 %; Neutrophils % 41.6 %; Nucleated Red Blood Cells % 0 %; Platelet Count 166 10^3/cmm (130-400); Red Blood Count 4.57 10^6/uL (4.1-5.3); Red Cell Distribution Width 13.4 % (12.1-15.1); White Blood Count 3.8 10^3/uL (4.0-10.0)
--- NOTE | 2022-12-23 08:05 | PC.NURSE ---
PT PLACED ON CONTINUOUS NIBP, SPO2, AND CM
[2022-12-23 08:23] LABS: Troponin(5th) Baseline 6 ng/L (0-15)
[2022-12-23 08:30] LABS: Alanine Aminotransferase 27 U/L (0-41); Albumin Level 3.7 g/dL (3.5-5.2); Alkaline Phosphatase 93 U/L (40-130); Anion Gap 12.9 (5-19); Aspartate Amino Transferase 29 U/L (0-40); Blood Urea Nitrogen 9 mg/dL (8-23); Calcium 8.8 mg/dL (8.5-10.5); Carbon Dioxide 25 mmol/L (22-29); Chloride 104 mmol/L (98-107); Creatinine Clr Calc Pharmacy 83.9979; Globulin 2.6 g/dL (1.3-4.6); Glomerular Filtration Rate 74.5 mL/min (90-130); Glucose 97 mg/dL (65-115); NT Pro B Type Natriuretic Pept 53 pg/mL (0-125); Osmolality Calculated 285 mOsm/kg (285-295); Potassium 3.9 mmol/L (3.5-5.1); Sodium 138 mmol/L (136-145); Total Bilirubin 0.3 mg/dL (0.15-1.2); Total Protein 6.3 g/dL (6.6-8.7)
--- NOTE | 2022-12-23 08:34 | PC.PHAR ---
pt states he takes care of his own medications-pt states he finished his cipro 500mg bid last week ext med history shows last filled 12/13/22 5d/s-pt states he has a build up of plavix 75mg daily pt states he got a ton from mail order ext med history shows last filled 08/12/23 30d/s-
--- NOTE | 2022-12-23 09:28 | ECG_ITS ---
[facility] Test Date: 2022-12-23 Pat Name: Eliceo Simpson Department: Room: Gender: Male [employer]: : 1955 Requested By: Sebastián Self Order Number: [id number] Ana MD: Crystal Garcia M.D. Measurements Intervals Center Rate: 78 P: 46 IL: 188 QRS: 26 QRSD: 101 T: 26 QT: 368 QTc: 421 Interpretive Statements SINUS RHYTHM WITH OCCASIONAL VENTRICULAR PREMATURE COMPLEXES Poor R wave progression Compared to ECG 12/23/2022 07:35:47 Ventricular premature complex(es) now present Intraventricular conduction delay no longer present Electronically Signed On 12-23-2022 23:14:21 CDT by Crystal Garcia M.D. [id number]
[2022-12-23 09:58] LABS: Troponin 5 2HR 6.04 ng/L (0-15)
[2022-12-23 10:04] LABS: Troponin 5 2HR Delta 0.04 ABS# (0-10)
[2022-12-23 11:04] LABS: INR 1.24 (0.8-1.2)
[2022-12-23 11:05] LABS: Partial Thromboplastin Time 29.7 SECONDS (23.9-36.7)
[2022-12-23] MEDS: enoxaparin 100 mg/mL Syringe 90 MG SUBCUT ×2 (11:32→23:41)
[2022-12-23] MEDS: nitroglycerin 1 gm/inch oint Pkt 1 INCH TOPICAL (11:32)
--- NOTE | 2022-12-23 11:40 | P.HP_ITS ---
Providers/Chief Complaint Admitting Physician: Adolph Maravilla MD Primary Care Provider: Onofre Elise MD Chief Complaint: Chest Tightness History of Present Illness Eliceo Simpson is a 67 year old male presenting to the emergency department with complaints of chest discomfort. He reports he will often have chest discomfort, nonexertional, lower chest, that last minutes. He has attributed this to some COPD in the past. He denies any radiation of the discomfort. This morning around 6 AM he had chest discomfort lower chest, difficult to categorize, without radiation but associated with diaphoresis and lightheadedness. He reports this is very unusual and he had the symptoms previously with identification of his coronary disease over 10 years ago. He reports he has a little bit of discomfort persisting, but not severe. He denies any current nausea, short shortness of breath. He reports he does have some GI related issues, with feelings of early fullness. He has felt like he had a pill stuck in his esophagus that cleared with p.o. intake. He denies any particular dysphagia but admits to some reflux. He takes Tums on occasion. He has had dark stool on occasion but no clear identification of any blood. Is over 10 years ago, with intervention in his LAD as well as RCA. He is also being followed in cardiology clinic for a small aneurysmal dilation of his abdominal aorta. Review of Systems General: Reports: 10 or more systems reviewed and unremarkable except in HPI and below Resp: Denies: dyspnea GI: Reports: other (Dark stool); Denies: abdominal pain, nausea, vomiting or hematochezia Medications/Allergies Home Medications Medication Instructions Recorded Confirmed Last Taken Type aspirin 81 mg tablet,delayed 81 mg PO QAM 12/10/19 12/23/22 12/23/22 History release (Adult Low Dose Aspirin) clopidogrel 75 mg tablet 75 mg PO QAM 08/22/22 12/23/22 12/23/22 History multivitamin 0.5 tab PO QAM 08/22/22 12/23/22 08/15/22 History benzonatate 100 mg capsule 100 mg PO TID PRN cough #45 caps 11/30/22 12/23/22 Unknown Rx atorvastatin 80 mg tablet 80 mg PO QAM 12/23/22 12/23/22 12/23/22 History bifyuwkbdz-uhhtxcxmsdlylgu-tuacfrzxtqroggvp-acetaminophen 2 cap PO BEDTIME 12/23/22 12/23/22 12/22/22 History capsule lisinopril 2.5 mg tablet 2.5 mg PO QAM 12/23/22 12/23/22 12/23/22 History nitroglycerin 0.4 mg sublingual 0.4 mg sublingual Q5M PRN Chest 12/23/22 12/23/22 Unknown History tablet (Nitrostat) Pain Allergies Allergy/AdvReac Type Severity Reaction Status Date / Time No Known Allergies Allergy Verified 12/23/22 08:30 PFSH Acute PFSH: Medical History Abdominal aortic aneurysm (AAA) CAD (coronary artery disease) COPD (chronic obstructive pulmonary disease) Diarrhea Dyslipidemia Elevated PSA Essential hypertension Presence of stent in LAD coronary artery Prostate CA Radiation +1 injection of LHRH agonist. Completed 2017. Pulmonary fibrosis Renal calculus, right S/P extracorporeal shock wave therapy Tubular adenoma of colon Urolithiasis Surgical History History of cystoscopy Treatment of kidney stones / temporary stent placement Hx of cholecystectomy Hx of colonoscopy 10 + yrs ago S/P arterial stent Coronary stent x 2 Family History Sister Cancer Ovarian Mother , 85 Stroke Father , 85 CAD (coronary artery disease) Social History Smoking and tobacco status: former smoker Alcohol intake: current Alcohol intake frequency: few times a month Adopted: No Caregiver/support person: No Lives independently: No Household members: spouse Marital status: Current occupational status: retired Current gender identity: Male Vitals/I&O/Wt Last Vital Signs Temp 97.8 F 12/23/22 07:45 Pulse 78 12/23/22 10:30 Resp 22 H 12/23/22 10:30 BP 136/75 12/23/22 10:30 Pulse Ox 95 12/23/22 10:30 O2 Del Method 12/23/22 07:45 Weight last 48 hrs Weight 90.718 kg Physical Exam Narrative: General exam is a white male, no distress HEENT: Atraumatic and normocephalic. Pupils equally round. Oropharynx is mihaela r. Neck is supple no lymphadenopathy thyromegaly JVD or bruit Lungs clear no wheezing or crackles Abdomen is soft nontender positive bowel sounds. No obvious organomegaly exam deferred Extremities no cyanosis clubbing or edema, cap refill brisk Skin no rash. A few scattered actinic keratoses Neuro no obvious focal deficits Data 12/23/22 07:55 12/23/22 07:55 Other Labs: INR 1.24 LFTs normal Albumin 3.7 Calcium 8.8 Chest x-ray COPD, I reviewed this personally Initial troponin 6 with repeat of 6 EKG I reviewed personally showed NSR, NL axis, IVCD, no acute ST changes, Q waves, V1 and V2 A&P Assessment and plan (1) Chest pain: Heart score is significantly elevated Patient is concerned his discomfort is consistent with symptomatology he had when RCA and LAD stent were performed over 10 years ago Initiate Lovenox full dose anticoagulation Await 6-hour troponin Continue Plavix, aspirin, statin Cardiology consultation As he has some symptomatology consistent with reflux add Protonix twice daily CBC and BMP tomorrow Potential for angiogram, reasons for this. Echocardiogram Check TSH (2) GERD (gastroesophageal reflux disease): Initiate Protonix 40 mg twice daily Consider outpatient endoscopy, if no significant findings on angiogram (3) CAD (coronary artery disease): See discussion under chest discomfort Plan Multiple other medical problems as outlined in past medical history Full code Lovenox will suffice for DVT prophylaxis Attestations Medical Necessity Statement*: Will require greater than 2 midnight stay for evaluation and treatment of chest discomfort Diagnoses Chest pain R07.9 GERD (gastroesophageal reflux disease) K21.9 CAD (coronary artery disease) I25.10 Time Spent (min) 41
--- NOTE | 2022-12-23 12:33 | USCV_ITS ---
Eliceo Simpson Age: 67 Gender: M : 1955 Exam Date: 12/23/2022 17:05 Ordering Phys: Adolph Maravilla MD Technologist: FERNY Exam Location: [facility] – [place] Indication: cva BP: / HR: 74 Rhythm: Sinus Technical Quality: Poor secondary to COPD MEASUREMENTS (Male / Female) Normal Values 2D ECHO LV Diastolic Diameter PLAX 4.8 cm 4.2 - 5.9 / 3.9 - 5.3 cm LV Systolic Diameter PLAX 3.6 cm IVS Diastolic Thickness 0.8 cm 0.6 - 1.0 / 0.6 - 0.9 cm IVS Systolic Thickness 1.1 cm LVPW Diastolic Thickness 0.8 cm 0.6 - 1.0 / 0.6 - 0.9 cm LVPW Systolic Thickness 1.1 cm LVOT Diameter 2.1 cm LV Ejection Fraction 2D Teich 49.0 % LV Ejection Fraction MOD 2C 61.8 % LV Ejection Fraction 2C AL 61.1 % LA Diameter 2.9 cm IVC Diameter 1.3 cm M-MODE Aortic Annulus Diameter 3.5 cm LA Ao Ratio MM 0.9 MV E Point Septal Separation 1.1 cm DOPPLER AV Peak Velocity 87.0 cm/s LVOT Peak Velocity 79.0 cm/s AV Area Cont Eq vti 3.0 cm squared AV Area Cont Eq pk 3.2 cm squared MV Area PHT 3.1 cm squared Mitral E to A Ratio 1.0 MV E' Velocity 30.5 cm/s Mitral E to MV E' Ratio 9.9 Mitral E to LV E' Lateral Ratio 9.4 Mitral E to LV E' Septal Ratio 10.5 TR Peak Velocity 167.0 cm/s TR Peak Gradient 11.2 mmHg TV Peak E Velocity 43.0 cm/s Right Atrial Pressure 3.0 mmHg Pulmonary Artery Systolic Pressu 14.2 mmHg FINDINGS Left Ventricle Technically limited quality echocardiogram because of poor ultrasonic windows. LV systolic function is grossly borderline normal. Regional wall motion abnormalities cannot accurately be assessed because of poor ultrasonic windows. Right Ventricle Grossly normal Right Atrium Not well visualized. Left Atrium Grossly normal Mitral Valve Grossly normal. Trace mitral regurgitation. Aortic Valve Not well visualized. Tricuspid Valve Trace tricuspid regurgitation. Insufficient TR jet to calculate RVSP Pulmonic Valve Not well visualized Pericardium Grossly normal Aorta Normal in size IVC Appears to be normal CONCLUSIONS Technically limited quality echocardiogram because of poor ultrasonic windows. LV systolic function is grossly borderline normal. Trace mitral regurgitation Trace tricuspid regurgitation No comparison studies are available Francisco Clayton MD (Electronically Signed) Final Date: 24 December 2022 10:33 S
--- NOTE | 2022-12-23 12:34 | P.CONIM_ITS ---
Providers/Reason For Consult Consulting Physician/Specialty*: Francisco Clayton MD/ Cardiology Reason for Consult*: Worsening angina Requesting Physician: Dr Lai Attending Physician: Adolph Maravilla MD Primary Care Provider: Onofre Elise MD History of Present Illness History of Present Illness Eliceo Simpson is a 67 year old male with past medical history of CAD with PCI of RCA and LAD in the past, AAA who presented to hospital with chest discomfort episodes. 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 It was associated with diaphoresis and lightheadedness. Also has dyspnea on exertion. He feels that his symptoms were similar to his prior presentation when he needed PCI. He has been having on and off chest pain. However it is better since putting on nitro patch. Troponins have not trended up significantly. EKG shows normal sinus rhythm, interventricular conduction delay with no significant ST-T wave changes. Review of Systems Const: Denies: fatigue Card: Reports: chest pain and dyspnea on exertion; Denies: palpitations, irregular heart rhythm, swelling of feet/ankles, lightheadedness, pre-syncope, orthopnea or leg pain with exertion Resp: Denies: dyspnea, productive cough or non-productive cough Musc: Denies: neck pain or back pain Neuro: Denies: headache(s) or dizziness Psych: Denies: anxiety, depression, suicidal ideation or homicidal ideation Vlad/Lymph: Reports: easy bruising and easy bleeding Medications/Allergies Home Medications Medication Instructions Recorded Confirmed Last Taken Type aspirin 81 mg tablet,delayed 81 mg PO QAM 12/10/19 12/23/22 12/23/22 History release (Adult Low Dose Aspirin) clopidogrel 75 mg tablet 75 mg PO QAM 08/22/22 12/23/22 12/23/22 History multivitamin 0.5 tab PO QAM 08/22/22 12/23/22 08/15/22 History benzonatate 100 mg capsule 100 mg PO TID PRN cough #45 caps 11/30/22 12/23/22 Unknown Rx atorvastatin 80 mg tablet 80 mg PO QAM 12/23/22 12/23/22 12/23/22 History wnyqcgkfms-odpohpouccwfbiq-hwmavxigxvrmkknw-acetaminophen 2 cap PO BEDTIME 12/23/22 12/23/22 12/22/22 History capsule lisinopril 2.5 mg tablet 2.5 mg PO QAM 12/23/22 12/23/22 12/23/22 History nitroglycerin 0.4 mg sublingual 0.4 mg sublingual Q5M PRN Chest 12/23/22 12/23/22 Unknown History tablet (Nitrostat) Pain Allergies Allergy/AdvReac Type Severity Reaction Status Date / Time No Known Allergies Allergy Verified 12/23/22 08:30 Current Medications Generic Name Dose Route Start Last Admin Trade Name Bryq PRN Reason Stop Dose Admin Enoxaparin Sodium 90 mg 12/23/22 12:00 12/23/22 11:32 Enoxaparin 100 Mg/Ml Syringe 1 mg/kg (90 mg) 90 mg SUBCUT Administration Q12H MONIKA PFSH Acute PFSH: Medical History Abdominal aortic aneurysm (AAA) CAD (coronary artery disease) COPD (chronic obstructive pulmonary disease) Diarrhea Dyslipidemia Elevated PSA Essential hypertension Presence of stent in LAD coronary artery Prostate CA Radiation +1 injection of LHRH agonist. Completed 2017. Pulmonary fibrosis Renal calculus, right S/P extracorporeal shock wave therapy Tubular adenoma of colon Urolithiasis Surgical History History of cystoscopy Treatment of kidney stones / temporary stent placement Hx of cholecystectomy Hx of colonoscopy 10 + yrs ago S/P arterial stent Coronary stent x 2 Family History Sister Cancer Ovarian Mother , 85 Stroke Father , 85 CAD (coronary artery disease) Social History Smoking and tobacco status: former smoker Alcohol intake: current Alcohol intake frequency: few times a month Adopted: No Caregiver/support person: No Lives independently: No Household members: spouse Marital status: Current occupational status: retired Current gender identity: Male Vitals/I&O/Wt Last Vital Signs Temp 97.8 F 12/23/22 07:45 Pulse 76 12/23/22 12:00 Resp 20 H 12/23/22 12:00 BP 133/80 12/23/22 11:30 Pulse Ox 95 12/23/22 12:00 O2 Del Method 12/23/22 07:45 Weight last 48 hrs Weight 200 lb Physical Exam Narrative: GENERAL: Patient is alert, awake and oriented x3. [] NECK: No jugular vein distension. [] HEENT: No cyanosis. No icterus. No pallor. [] HEART: Regular S1 and S2. No murmur, rub or gallop. [] LUNGS: Clear to auscultate bilaterally. [] CENTRAL NERVOUS SYSTEM: Grossly nonfocal. [] EXTREMITIES: Lower extremities with no edema Data 12/23/22 07:55 12/23/22 07:55 A&P Assessment and plan (1) Unstable angina pectoris: (2) CAD (coronary artery disease): (3) Prostate CA: (4) Abdominal aortic aneurysm (AAA): Plan Patient has typical chest pain symptoms and feels they are similar to his prior presentation of CAD. Given on and off chest pain symptoms, we will proceed with coronary angiogram with possible percutaneous coronary intervention in the morning. N.p.o. past midnight Continue aspirin and Plavix. Order echocardiogram. Thank you for involving us with care of this patient. We will continue to follow. Please call with questions. Consult Attestations Medical Necessity Statement: Care expected to cross 2 midnights. Coding Level of Care Code Acute Code for [facility] Fwd Diagnoses Unstable angina pectoris I20.0 CAD (coronary artery disease) I25.10 Prostate CA C61 Abdominal aortic aneurysm (AAA) I71.4
[2022-12-23] MEDS: aspirin 81 mg Chew Tablet 324 MG PO (12:49)
[2022-12-23 13:19] LABS: Thyroid Stimulating Hormone 1.64 uIU/mL (0.27-4.20)
--- NOTE | 2022-12-23 13:44 | ECG_ITS ---
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 Measurements Intervals [place] Rate: 79 P: 43 ND: 190 QRS: 12 QRSD: 106 T: 17 QT: 367 QTc: 423 Interpretive Statements SINUS RHYTHM LOW QRS VOLTAGE IN PRECORDIAL LEADS [QRS DEFLECTION < 1.0 mV IN CHEST LEADS] MODERATE INTRAVENTRICULAR CONDUCTION DELAY [105+ ms QRS DURATION, 80+ ms Q/S IN V1/V2, NO Q AND 60+ ms R IN I/aVL/V5/V6] Compared to ECG 12/23/2022 09:34:35 Low QRS voltage now present Intraventricular conduction delay now present Ventricular premature complex(es) no longer present Electronically Signed On 12-23-2022 23:16:19 CDT by Crystal Garcia M.D. [id number]
[2022-12-23 14:15] LABS: Troponin 5 6HR Delta 0 ng/L (0-12)
[2022-12-23] MEDS: pantoprazole DR 40 mg Tablet PO (18:17)
[2022-12-24] VITALS (18 sets, daily range): BP systolic 98–127; BP diastolic 50–73; PULSE 71–93; RESP 14–24; TEMP 36.6–36.9; O2SAT 97–98
[2022-12-24 03:34] LABS: Basophils # 0.1 10^3/uL (0.0-0.1); Basophils % 1.9 %; Eosinophils # 0.4 10^3/uL (0.0-0.8); Eosinophils % 6.4 %; Hematocrit 42.7 % (42.0-52.0); Hemoglobin 14.2 g/dL (11.7-16.6); Lymphocytes # 2.2 10^3/uL (0.8-4.8); Lymphocytes % 36.8 %; Mean Corpuscular HGB Conc 33.3 g/dL (30.0-36.0); Mean Corpuscular Hemoglobin 32.9 pg (28.0-34.0); Mean Corpuscular Volume 98.8 fl (80-94); Mean Platelet Volume 11.4 fL (7.4-10.4); Monocytes # 0.8 10^3/uL (0.2-0.9); Monocytes % 13.2 %; Neutrophils # 2.45 10^3/uL (1.8-7.7); Neutrophils % 41.4 %; Nucleated Red Blood Cells % 0 %; Platelet Count 162 10^3/cmm (130-400); Red Blood Count 4.32 10^6/uL (4.1-5.3); Red Cell Distribution Width 13.5 % (12.1-15.1); White Blood Count 5.9 10^3/uL (4.0-10.0)
[2022-12-24] MEDS: atorvastatin 40 mg Tablet 80 MG PO (04:52)
[2022-12-24] MEDS: clopidogrel 75 mg Tablet PO (04:52)
[2022-12-24] MEDS: aspirin 81 mg EC Tablet PO (04:53)
[2022-12-24] MEDS: lisinopril 2.5 mg Tablet PO (04:53)
--- NOTE | 2022-12-24 05:14 | XACV_ITS ---
Exam Room: [facility] Ht: 183 cm Wt: 90 kg BSA: 2.15 m2 Gender: Male : 1955 Any Known Allergies: No known allergies Exam Priority: Routine Procedure(s): Procedure Description: Diagnostic procedure Procedure Description: PCI procedure Procedure Description: Drug Eluting Coronary Stent Procedure Description: PTCA Procedure Description: Coronary Angiography Diagnostic Cath Status: Urgent Diagnostic Findings * Left Main has no significant disease. * Left Anterior Descending has no signficant disease. Patent prior stent. * Mid Circumflex: severe 70-80% stenosis, JUAN: 3 flow. * Proximal Right Coronary Artery: minimal 30% stenosis, JUAN: 3 flow. * Coronary angiography shows right dominance. PCI Status: Urgent PCI Indication: Other Interventional Findings * PROEDURE DETAIL: We engaged left main artery with XB 3.5 guide catheter. IV heparin was administered to maintain anticoagulation. 0.014 run-through guidewire was used to cross the mid circumflex artery stenosis and was put in distal vessel. We predilated the stenosis with 2.5 x 12 mm semicompliant balloon. This was followed by placement of 3.5 x 18 mm resolute [place] drug-eluting stent. At this time final angiogram was performed that showed excellent stent expansion, JUAN-3 flow and no residual stenosis. 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 * Mid Circumflex: 70% stenosis treated with a AB TREK 2.50X12 RX BALLOON, and SHARON Sapp COSME 3.5X18 JOAQUIM. 0% residual stenosis, JUAN: 3 flow. Conclusions 1. Severe mid left circumflex artery stenosis s/p successful revascularization with JOAQUIM x 1. 2. Mid Circumflex was treated with a Balloon, and Drug Eluting Stent. Recommendations * Dual antiplatelet therapy with aspirin and Plavix for atleast 1 year. * High intensity statin therapy. * Outpatient cardiology follow up in 4 weeks. Interventional RX Recommendation: PCI w/o planned CABG Diagnostic RX Recommendation: PCI w/o planned CABG Anticoagulation: Heparin Pressures Phase:Rest AO : 109 / 70 ( 87 ) @ 6:52:00 AM Clinical Evaluation EBL: 5mL-10mL Procedural Details Procedure Consent Obtained. Admit Source: In Patient. Pre-Procedure Time Out. Identified patient by full name and date of as verbalized by the patient/guarantor. Does the consent match the physician's order: Yes. Accurate & Complete Informed Consent: Yes. Inpatient/Outpatient History & Physical on Chart: Yes. If H&P is completed, is and addenduem needed: Yes; If yes, is the addendum complete: Yes. Visualize and Verify Site with Patient/Guarantor: N/A. Relevant Radiology Images available: N/A. The risks, benefits, and alternatives of sedation and/or procedure were discussed by physician. The patient agrees to continue. Procedure started. [facility] Clinical Fraility Score: 3: Managing Well. 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 Chest Pain Symptom Assessment: Typical Angina Symptoms. Correct patient, site and procedure confirmed by cath team. Current diagnosis: Chest Pain. PERRLA. Strong, equal hand engineer booster and exhauster bilaterally. Lungs clear x 5 lobes. IV Fluids: 0.9% NaCl at 75ml/hr. 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 Pre Procedural Pulses: bilateral radial was 3+. Pre Procedural Pulses: bilateral dorsalis pedis was 3+. Pre Procedural Pulses: bilateral posterior tibial was 2+. Oxygen started at 2liters/min via nasal canula. right radial was prepped with chloroprep then draped in the usual sterile fashion. right groin was prepped with chloroprep then draped in the usual sterile fashion. Physician notified. Baseline sample Acquired. HR: 66 BPM. Physician arrived. Physician scrubbed in. Immediate Pre-Procedure Time Out. Correct Patient: Yes; Correct Procedure: Yes; Correct Site: Yes; Correct Patient Position: Yes; Correct Supplies: Yes; Dried Flammable Prep: Yes; Blood Products Available: No;. Lidocaine 1% infiltrated to the right radial. Arterial access obtained. A 5 indonesian TIG catheter in over wire. Multiple views taken of left coronary artery. Catheter redirected to the RCA. Multiple views taken of right coronary artery. Catheter removed over the exchange wire. Physician review of cine films. 6 indonesian XB 3.5 guide catheter was inserted over the wire. Runthrough guidewire was advanced through the guide catheter to lesion in the mid Circ. Guidewire advanced across lesion. Balloon inserted to lesion in the mid Circ. Inflation number : 1 A AB TREK 2.50X12 RX BALLOON was prepped and advanced across the Mid CX , then inflated to 8 DIANA for 0:16 seconds. Inflation number: 2 The AB TREK 2.50X12 RX BALLOON was reinflated across the Mid CX, to 8 DIANA for 0:12 seconds. Balloon out. Stent inserted to lesion in the mid Circ. Inflation Number : 3 A SHARON Sapp COSME 3.5X18 JOAQUIM -Lot Number [id number] [facility] 08-26-2025 was prepped and advanced across the Mid CX. The stent was deployed at 12 DIANA for 0:21 seconds. Stent balloon out over wire. Angiography performed. Checking results. Runthrough wire out. Guide catheter out. Post Procedure: Pulses reassessed and unchanged. PERRLA. Strong, equal hand engineer booster and exhauster bilaterally. No VTE prophylaxis required. A TR Band was successful obtaining hemostatsis at the Right Radial artery insertion site. Medication's Wasted: Lidocaine 1% = 2 mL. Medication's Wasted: Nitro = 49.6 mg. Medication's Wasted: Heparin = 1000 unit. Total IV fluids: 38 mL. Post-op diagnosis: Severe mid circumflex stenosis, status post pci 1 stent placement. Complications: None. Estimated blood loss: 5mL-10mL. Responsiveness - Normal response to verbal stimuli; alert and oriented, PERRLA. Airway - Unaffected, no intervention required; spontaneous ventilation. Circulation: W/N/L, pulses unchanged. Nausea/Vomiting: N/A. Procedure completed. Patient transferred by bed to 1st floor. Vital chart was stopped. Access Site Site: Right Radial artery Sheath Size: 6 Fr Hemostasis Method: TR Band Hemostasis Success: Successful Procedure Medications Start: 5:37 AM Stop: 5:37 AM Medication: Versed Amount: 1 mg Route: I.V. Start: 5:37 AM Stop: 5:37 AM Medication: Fentanyl Amount: 50 mcg Route: I.V. Start: 5:42 AM Stop: 5:42 AM Medication: Nitrogylcerin Amount: 200 mcg Start: 5:45 AM Stop: 5:45 AM Medication: Versed Amount: 1 mg Route: I.V. Start: 5:54 AM Stop: 5:54 AM Medication: Versed Amount: 1 mg Route: I.V. Start: 6:03 AM Stop: 6:03 AM Medication: Nitrogylcerin Amount: 200 mcg Start: 6:09 AM Stop: 6:09 AM Medication: Plavix Amount: 300 mg Route: P.O. I, the attending physician, have reviewed and verified all procedure medications. Yes, all medications given per verbal order History/Risk Factors Hypertension: Yes Dyslipidemia: Yes Peripheral Arterial Disease (PAD): No Myocardial Infarction (TX): Yes Obesity: No Renal Disease: No Tobacco Use: Former Prior Interventions PCI: Yes CABG: No Valve Surgery: No Date of PCI: 04/08/2010 Report Signatures Finalized by Francisco Clayton MD on 12/28/2022 12:32 PM
--- NOTE | 2022-12-24 05:37 | W.PM.OPSUD ---
Surgery/Procedure H&P Update DATE OF PROCEDURE: December 24, 2022 DATE H&P PERFORMED: 12/23/22 H&P UPDATE INFORMATION: I have reviewed H&P completed within last 30 days, I have examined patient prior to procedure and No changes to prior documentation PREOP DIAGNOSIS: Worsening angina PRIMARY INDICATION FOR PROCEDURE: Worsening angina PLANNED PROCEDURE: Left heart cath with possible percutaneous coronary intervention PATIENT REASSESSED PRIOR TO SEDATION, WITH NO CHANGE NOTED: Yes PHYSICAL EXAM: alert, oriented x 3, clear to auscultation bilaterally and regular rate & rhythm AIRWAY EVAL/ANESTHESIA PLAN: normal airway, ASA III, Local Anesthesia, Risks, benefits & alternatives of sedation and/or procedure discussed and Patient agrees to continue as planned ADDITIONAL INFORMATION: Moderate sedation
--- NOTE | 2022-12-24 05:55 | PC.NURSE ---
This RN followed SN Jose Alfredo observing all assessments, medication administrations, and patient care. Student performed required patient verifications and engaged patient's during care appropriately. This RN agrees with all assessments.
--- NOTE | 2022-12-24 06:28 | PC.NURSE ---
Received patient from medical lab specialist via bed. Patient is s/p [facility] with right radial access. TR Band in place with 15ml of air. No s/s of bleeding or hematoma formation, pulse palpable and extremity warm to touch. Instructed patient on site care and restrictions. Patient verbalized complete understanding. Family at bedside. Will continue to monitor.
--- NOTE | 2022-12-24 06:36 | PM.PN ---
Subjective Subjective: Patient is doing well. no chest pain. He had coronary angiogram today that showed severe mid Left circumflex artery stenosis S/P successful revascularization with JOAQUIM x1. Vitals/I&O/Wt Last Vital Signs Temp 97.8 F 12/24/22 04:00 Pulse 80 12/24/22 06:30 Resp 19 H 12/24/22 06:30 BP 98/68 12/24/22 06:30 Pulse Ox 98 12/24/22 06:30 O2 Del Method 12/24/22 04:00 12/23/22 12/23/22 12/24/22 14:59 22:59 06:59 Intake Total 240 / 240 960 / 1200 Output Total 100 / 100 400 / 500 Balance 140 / 140 560 / 700 Weight last 48 hrs Weight 198 lb Weight 196 lb 4 oz Weight 200 lb Physical Exam Narrative: GENERAL: Patient is alert, awake and oriented x3. [] NECK: No jugular vein distension. [] HEENT: No cyanosis. No icterus. No pallor. [] HEART: Regular S1 and S2. No murmur, rub or gallop. [] LUNGS: Clear to auscultate bilaterally. [] CENTRAL NERVOUS SYSTEM: Grossly nonfocal. [] EXTREMITIES: Lower extremities with no edema Data 12/24/22 02:56 12/23/22 07:55 A&P Assessment and plan (1) Unstable angina pectoris: (2) CAD (coronary artery disease): (3) Prostate CA: (4) Abdominal aortic aneurysm (AAA): Plan Patient underwent coronary angiogram today that showed patent prior stents and severe stenosis in mid left circumflex artery. He underwent successful revascularization with DESx 1. Continue aspirin and Plavix for atleast 1 year. High intensity statin therapy ECHO is of limited quality, grossly LV systolic function appears to be borderline normal Thank you for involving us with care of this patient. If patient remains stable, can be discharged home in the evening. Please call with questions. Attestations Medical Necessity Statement*: Care expected to cross 2 midnights. Coding Level of Care Code Acute Code for [facility] Fwd Diagnoses Unstable angina pectoris I20.0 CAD (coronary artery disease) I25.10 Prostate CA C61 Abdominal aortic aneurysm (AAA) I71.4
[2022-12-24 08:20] LABS: Anion Gap 12.1 (5-19); Blood Urea Nitrogen 10 mg/dL (8-23); Calcium 8.6 mg/dL (8.5-10.5); Carbon Dioxide 24 mmol/L (22-29); Chloride 103 mmol/L (98-107); Glomerular Filtration Rate 84.2 mL/min (90-130); Glucose 77 mg/dL (65-115); Osmolality Calculated 278 mOsm/kg (285-295); Potassium 4.1 mmol/L (3.5-5.1); Sodium 135 mmol/L (136-145)
--- NOTE | 2022-12-24 09:35 | PM.DCS ---
Discharge Providers Date of Admission: 12/23/22 10:45 Date of Discharge: December 24, 2022 Attending Provider at Admission: Adolph Maravilla MD Attending Provider at Discharge: Tommy Lynn MD Consults: Cardiology: Dr. Clayton Primary Care Provider: Onofre Elise MD Diagnoses at Discharge Discharge Diagnosis (1) Unstable angina pectoris: Status: Acute (2) CAD (coronary artery disease): Status: Acute (3) Prostate CA: Status: Acute Permanent problem details: Radiation +1 injection of LHRH agonist. Completed 2018. (4) Abdominal aortic aneurysm (AAA): Status: Acute Reason for Visit Reason for Visit: Chest Tightness Brief History: History as per HPI Eliceo Simpson is a 67 year old male presenting to the emergency department with complaints of chest discomfort.? He reports he will often have chest discomfort, nonexertional, lower chest, that last minutes.? He has attributed this to some COPD in the past.? He denies any radiation of the discomfort.? This morning around 6 AM he had chest discomfort lower chest, difficult to categorize, without radiation but associated with diaphoresis and lightheadedness.? He reports this is very unusual and he had the symptoms previously with identification of his coronary disease over 10 years ago.? He reports he has a little bit of discomfort persisting, but not severe.? He denies any current nausea, short shortness of breath.? He reports he does have some GI related issues, with feelings of early fullness.? He has felt like he had a pill stuck in his esophagus that cleared with p.o. intake.? He denies any particular dysphagia but admits to some reflux.? He takes Tums on occasion.? He has had dark stool on occasion but no clear identification of any blood.? Is over 10 years ago, with intervention in his LAD as well as RCA.? He is also being followed in cardiology clinic for a small aneurysmal dilation of his abdominal aorta. Hospital Course Hospital Course Patient admitted to hospital further evaluation and management of chest pain in the ER non-ST elevation OK with past medical history of PCI to RCA and LAD over 10 years ago. On admission he was started on full dose anticoagulation with Lovenox. Cardiology was consulted and he underwent cardiac angiogram on 12/24 that showed severely mid left circumflex artery stenosis for which she underwent successful revascularization with JOAQUIM x1. He tolerated treatment well. His hospitalization was otherwise unremarkable. He has been discharged hemodynamically stable condition with advised to follow-up with his primary care provider and nurse petitioner from [facility] within next [address] Cui in 4 weeks. Metoprolol 25 mg twice daily has been added to his medication list. Physical Exam Narrative: General exam is a white male, no distress HEENT: Atraumatic and normocephalic. Pupils equally round. Oropharynx is clear. Neck is supple no lymphadenopathy thyromegaly JVD or bruit Lungs clear no wheezing or crackles Abdomen is soft nontender positive bowel sounds. No obvious organomegaly exam deferred Extremities no cyanosis clubbing or edema, cap refill brisk Skin no rash. 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 echo complete* [id number] Routine Ultrasound 12/23/22 12:33 Taken Radiology Impressions Chest X-Ray 12/23/22 07:28 IMPRESSION: Streaky bibasilar atelectasis. Pneumonia should be excluded clinically. COPD Nodule in the right costophrenic angle possibly a nipple shadow. Clinical correlation suggested with nipple markers placed for repeat study Echocardiogram: ?CONCLUSIONS ?Technically limited quality echocardiogram because of poor ?ultrasonic windows. ?LV systolic function is grossly borderline normal. ?Trace mitral regurgitation ?Trace tricuspid regurgitation ?No comparison studies are available ?Francisco Clayton MD ?(Electronically Signed) ?Final Date:? ? ? 24 December 2022 ? 10:33 Laboratory Results WBC 5.9 10^3/uL (4.0-10.0) 12/24/22 02:56 RBC 4.32 10^6/uL (4.1-5.3) 12/24/22 02:56 Hgb 14.2 g/dL (11.7-16.6) 12/24/22 02:56 Hct 42.7 % (42.0-52.0) 12/24/22 02:56 MCV 98.8 fl (80-94) H 12/24/22 02:56 MCH 32.9 pg (28.0-34.0) 12/24/22 02:56 MCHC 33.3 g/dL (30.0-36.0) 12/24/22 02:56 RDW 13.5 % (12.1-15.1) 12/24/22 02:56 Plt Count 162 10^3/cmm (130-400) 12/24/22 02:56 MPV 11.4 fL (7.4-10.4) H 12/24/22 02:56 Neut % (Auto) 41.4 % 12/24/22 02:56 Lymph % (Auto) 36.8 % 12/24/22 02:56 Dawson % (Auto) 13.2 % 12/24/22 02:56 Eos % (Auto) 6.4 % 12/24/22 02:56 Baso % (Auto) 1.9 % 12/24/22 02:56 Neut # (Auto) 2.45 10^3/uL (1.8-7.7) 12/24/22 02:56 Lymph # (Auto) 2.2 10^3/uL (0.8-4.8) 12/24/22 02:56 Dawson # (Auto) 0.8 10^3/uL (0.2-0.9) 12/24/22 02:56 Eos # (Auto) 0.4 10^3/uL (0.0-0.8) 12/24/22 02:56 Baso # (Auto) 0.1 10^3/uL (0.0-0.1) 12/24/22 02:56 Nucleated RBC % (auto) 0 % 12/24/22 02:56 Nucleated RBCs # 0.0 /100WBC 12/24/22 02:56 PT 16.00 SECONDS (12.1-14.9) H 12/23/22 07:55 INR 1.24 (0.8-1.2) H 12/23/22 07:55 APTT 29.7 SECONDS (23.9-36.7) 12/23/22 07:55 Sodium 135 mmol/L (136-145) L 12/24/22 07:25 Potassium 4.1 mmol/L (3.5-5.1) 12/24/22 07:25 Chloride 103 mmol/L (98-107) 12/24/22 07:25 Carbon Dioxide 24 mmol/L (22-29) 12/24/22 07:25 Anion Gap 12.1 (5-19) 12/24/22 07:25 BUN 10 mg/dL (8-23) 12/24/22 07:25 Creatinine 0.9 mg/dL (0.7-1.2) 12/24/22 07:25 GFR Calculation 84.2 mL/min (90-130) L 12/24/22 07:25 Glucose 77 mg/dL (65-115) 12/24/22 07:25 Calculated Osmolality 278 mOsm/kg (285-295) L 12/24/22 07:25 Calcium 8.6 mg/dL (8.5-10.5) 12/24/22 07:25 Total Bilirubin 0.3 mg/dL (0.15-1.2) 12/23/22 07:55 AST 29 U/L (0-40) 12/23/22 07:55 ALT 27 U/L (0-41) 12/23/22 07:55 Alkaline Phosphatase 93 U/L (40-130) 12/23/22 07:55 Troponin T Baseline 6 ng/L (0-15) 12/23/22 07:41 Troponin T 120 Minute 6.04 ng/L (0-15) 12/23/22 09:25 Delta Troponin T 0.04 ABS# (0-10) 12/23/22 09:25 Troponin T Hi Sens 6Hr 6.00 ng/L (0-15) 12/23/22 13:39 Troponin T Hi Sens 6Hr Delta 0 ng/L (0-12) 12/23/22 13:39 NT-Pro-B Natriuret Pep 53 pg/mL (0-125) 12/23/22 07:55 Total Protein 6.3 g/dL (6.6-8.7) L 12/23/22 07:55 Albumin 3.7 g/dL (3.5-5.2) 12/23/22 07:55 Globulin 2.6 g/dL (1.3-4.6) 12/23/22 07:55 TSH 1.64 uIU/mL (0.27-4.20) 12/23/22 07:55 Vitals Last Vital Signs Temp 98.0 F 12/24/22 06:45 Pulse 73 12/24/22 08:45 Resp 15 12/24/22 08:45 BP 102/56 12/24/22 08:45 Pulse Ox 97 12/24/22 06:45 O2 Del Method 12/24/22 04:00 Discharge Plan Discharge Patient Disposition: Home Condition: Stable Prescriptions: New metoprolol tartrate 25 mg tablet 25 mg PO BID Qty: 60 0RF Continued aspirin [Adult Low Dose Aspirin] 81 mg tablet,delayed release (DR/EC) 81 mg PO QAM benzonatate 100 mg capsule 100 mg PO TID PRN (Reason: cough) Qty: 45 0RF Nitrostat 0.4 mg Tablet, Sublingual 0.4 mg SUBLINGUAL Q5M PRN (Reason: Chest Pain) Rx Instructions: do not exceed 3 doses per episode [id number]-acetaminophen Capsule 2 cap PO BEDTIME atorvastatin 80 mg tablet 80 mg PO QAM lisinopril 2.5 mg tablet 2.5 mg PO QAM multivitamin Tablet 0.5 tab PO QAM clopidogrel 75 mg tablet 75 mg PO QAM Hold Instructions: Resume on 08/27/22. Discharge Orders: Discharge Order (Routine); Ordered 12/24/22 Ordered By: Tommy Lynn Referrals: Francisco Clayton M.D [Physician] - 1 month (Your follow up appointment with Dr. Clayton will be scheduled at your Yennifer Encarnacion appointment. ) Yennifer Encarnacion FNP [Nurse Practitioner] - 7-10 days (Yennifer Encarnacion's Office will be calling you on Monday to schedule a follow up appointment. If you do not hear from them by afternoon, try calling them to schedule. Call [phone].) Onofre Elise MD [Primary Care Provider] - 7-10 days (Please call Dr. Elise's Office on Monday at [phone] to schedule a follow up appointment for 7-10 days. The office has your information and may call you to schedule the appointment. Thank you.) Discharge Diet: Cardiac Discharge Activity: Resume usual activity and Increase activity as tolerated Patient Instructions: Metoprolol (By mouth) (Lopressor, Toprol XL), Opioid Safety Discharge Attestations Time Spent in Discharge Care*: greater than 30 min Specific Discharge Activities: educating patient, educating and/or supporting family/caregiver, discussing with pcp/other providers, discussing with director of casework department/social workers/dc planners, documenting/other paperwork and evaluating patient/reviewing data Status at Discharge: Cognitive status at discharge: cognitively intact, Behavioral status at discharge: cooperative, Functional status at discharge: independent ambulation, Overall status at discharge: patient is back to baseline Quality Metrics Clinical Quality Measures [ Acute Myocardial Infaction { Clinical Trial Participant: No; Contraindication to aspirin: None; Aspirin prescribed; Contraindication to statin: None; Statin prescribed; Contraindication to PCI: None; PCI performed; Contraindication to Fibrinolytics: None; fibrinolytics given}] Coding Level of Care Code 05274 Total time (in minutes) for Discharge: 50 Diagnoses Unstable angina pectoris I20.0 CAD (coronary artery disease) I25.10 Prostate CA C61 Abdominal aortic aneurysm (AAA) I71.4
[2022-12-24 10:51] LABS: Estmated Average Glucose 105; Hemoglobin A1C 5.3 % (4.0-6.0)
== END 2022-12-24 15:23 | disposition home or self-care (01) | DRG 247 ==
LOC: ER 10:57 → CSU 11:02
PROVIDERS: Internal Medicine; Physician Assistant; Admitting Provider Internal Medicine; Emergency Provider Family Medicine; PCP Family Medicine; Visit Provider Student in an Organized Health Care Education/Training Program
PROC: 027034Z Dilation of Coronary Artery, One Artery with Drug-eluting Intraluminal Device, Percutaneous Approach (ICD-10-PCS; principal; 2022-12-24 06:00)
PROC: 027034Z Dilation of Coronary Artery, One Artery with Drug-eluting Intraluminal Device, Percutaneous Approach (ICD-10-PCS; 2022-12-24 06:00)
DX: I25.110 Atherosclerotic heart disease of native coronary artery with unstable angina pectoris (principal); Z95.5 Presence of coronary angioplasty implant and graft; C61 Malignant neoplasm of prostate; I71.40 Abdominal aortic aneurysm, without rupture, unspecified; J44.9 Chronic obstructive pulmonary disease, unspecified; Z79.82 Long term (current) use of aspirin; Z79.02 Long term (current) use of antithrombotics/antiplatelets; E78.5 Hyperlipidemia, unspecified; I10 Essential (primary) hypertension; J84.10 Pulmonary fibrosis, unspecified; Z87.442 Personal history of urinary calculi; Z87.891 Personal history of nicotine dependence; K21.9 Gastro-esophageal reflux disease without esophagitis
CPT/HCPCS: 36415; 71045; 80048; 80053; 83036; 83880; 84443; 84484; 85025; 85610; 85730; 93005; 93306; 93454; 96372; 96374; 99152; 99153; 99285; C1725; C1769; C1874; C1887; C1894; C9600; J1644; J1650; J2250; J3010; J3490; Q9967

== ENCOUNTER 2023-01-12 08:09 | Outpatient (CLI) | payer OTHER, SELFPAY ==
[2023-01-12 09:13] LABS: Prostate Specific AG Urology 0.46 ng/mL (0-4)
== END 2023-01-12 08:10 | disposition home or self-care (01) ==
PROVIDERS: PCP Family Medicine; Visit Provider Urology
DX: R97.20 Elevated prostate specific antigen [PSA] (principal)
CPT/HCPCS: 84153

== ENCOUNTER 2023-02-20 13:04 | Outpatient (CLI) | payer OTHER, SELFPAY ==
--- NOTE | 2023-02-20 13:00 | CT_ITS ---
WS: [id number] CT chest wo con [id number] HISTORY: Pleural thickening on CT scan TECHNIQUE: Axial imaging performed through the thorax. Coronal and sagittal reformats are submitted. All CT scans at [facility] use at least one of these dose optimization techniques: automated exposure control; mA and/or kV adjustment per patient size (includes targeted exams where dose is mat ched to clinical indication); or iterative reconstruction. CONTRAST: None DLP: 355.18 mGy.cm COMPARISON: 11/21/2022, chest radiograph 12/23/2022 Lungs and central airway: Marked paraseptal and centrilobular emphysema. Bilateral apical pleural justin que and thickening with a few calcifications is stable. Micronodules LEFT lower lobe are stable. No n ew or enlarging mass. Pleura: Normal. No pleural effusion. Heart and pericardium: Normal size heart with no pericardial effusion. Mediastinum and sully: Heavily calcified mediastinal and hilar lymph nodes. No new or enlarging lymph nodes. Vessels: Mild atherosclerosis aorta. No aneurysm. Normal size pulmonary artery. Chest wall and lower neck: No soft tissue masses. Upper abdomen: Prior cholecystectomy. Hepatic and splenic granulomata. No adrenal mass. Since the wendy or examination there is mild dilatation of the visualized RIGHT renal pelvis. Very proximal RIGHT ure ter is included on this examination also prominent. Patient has known renal calcifications. Suspect t here may be a partial ureteral obstruction. Osseous structures: No destructive process. CT/CT chest wo con [id number] IMPRESSION: 1. Stable biapical pleural thickening with calcification. 2. No pulmonary mass or adenopathy. 3. Severe emphysema. 4. Very superior aspect of the kidneys are included on this examination. There is new mild hydronephrosis of the RIGHT renal pelvis, calyces and proximal ure ter. Patient has known renal calcifications. Suspect the mild renal obstruction which may be due to a ureteral calcification. Consider further evaluation CT a bdomen and pelvis with noncontrast CT.
== END 2023-02-20 13:05 | disposition home or self-care (01) ==
PROVIDERS: PCP Family Medicine; Visit Provider Family Medicine
DX: J92.9 Pleural plaque without asbestos (principal); J43.9 Emphysema, unspecified; N13.30 Unspecified hydronephrosis; N28.89 Other specified disorders of kidney and ureter
CPT/HCPCS: 71250

== ENCOUNTER 2023-05-08 19:52 | Emergency (ER) | payer MEDICARE, OTHER, SELFPAY ==
[2023-05-08 20:02] VITALS: BP 151/83; PULSE 82; RESP 14; TEMP 36.3; O2SAT 97; BMI 27.1
--- NOTE | 2023-05-08 20:09 | ED_ITS ---
HPI - Headache General: Chief Complaint: Headache Stated Complaint: Head pain Time Seen by Provider: 05/08/23 20:09 History of Present Illness: 67-year-old male presents emerged department complaints of left-sided headache pain. He states the pain is a 8 out of 10 and throbbing at present. He states that it started behind his left forehead and left eye area and has progressed to the entire left side of his head. He states that if he pushes on the side of his head the pain does slightly feel better. He is accompanied by his who states that he has had intermittent headaches for the previous 3 weeks they do have an appointment with her primary care provider but the pain that started this evening became so bad he could not tolerate it. He denies known injury or trauma. He denies neck pain or stiffness. He denies fevers chills or night sweats. He denies any change in mental status or changes in vision. He states he has not had a change in his hearing Review of Systems General: Reports: 10 or more systems reviewed and unremarkable except in HPI and below Neuro: Reports: headache(s) PFSH ED PFSH: Medical History Abdominal aortic aneurysm (AAA) CAD (coronary artery disease) COPD (chronic obstructive pulmonary disease) Diarrhea Dyslipidemia Elevated PSA Essential hypertension Presence of stent in LAD coronary artery Prostate CA Radiation +1 injection of LHRH agonist. Completed 2018. Pulmonary fibrosis Renal calculus, right S/P extracorporeal shock wave therapy Tubular adenoma of colon Urolithiasis Surgical History History of cystoscopy Treatment of kidney stones / temporary stent placement Hx of cholecystectomy Hx of colonoscopy 10 + yrs ago S/P arterial stent Coronary stent x 2 Family History Sister Cancer Ovarian Mother , 85 Stroke Father , 85 CAD (coronary artery disease) Social History Smoking and tobacco status: former smoker Alcohol intake: current Alcohol intake frequency: few times a month Substance/Drug Use: never Adopted: No Caregiver/support person: No Lives independently: No Household members: spouse Marital status: Current occupational status: retired Current gender identity: Male Physical Exam Const: COMMON NORMALS: no acute distress, patient oriented x3, no limitations, alert and well nourished HENMT: COMMON NORMALS: normocephalic, atraumatic, hearing grossly normal bilaterally, external ears normal and moist oral mucous membranes HEAD & SCALP: normocephalic and atraumatic EXTERNAL EAR: Yes external ears normal Eye: COMMON NORMALS: Equal, round and reactive pupils present, EOMs intact bilaterally, no scleral icterus and normal visual olivo by confrontation PUPIL: Yes Equal, round and reactive pupils present Neck/C-Spine: COMMON NORMALS: full ROM, no lymphadenopathy, supple, no meningeal signs, no JVD and No carotid bruits Lymph: LYMPHATIC: no lymphadenopathy noted Resp: COMMON NORMALS: normal respiratory effort and clear to auscultation bilaterally AUSCULTATION: clear to auscultation bilaterally Cardio: COMMON NORMALS: no JVD, regular rate, regular rhythm, S1 normal heart sound present, S2 normal heart sound present, No gallops present (Cardio) and Peripheral pulses 2+ throughout RATE: regular rate RHYTHM: regular rhythm HEART SOUNDS: S1 normal heart sound present and S2 normal heart sound present PERIPHERAL PULSES: Peripheral pulses 2+ throughout GI: COMMON NORMALS: Normal to inspection, nondistended, normoactive bowel sounds present, Soft to palpation and non-tender PALPATION: Yes Soft to palpation Back/Pelvis: COMMON NORMALS: thoracic and lumbar spine normal to inspection Extremity: COMMON NORMALS: normal to inspection, full ROM and capillary refill normal Neuro: COMMON NORMALS: patient oriented x3, CN's II-XII intact bilaterally, moves all extremities, no sensory deficits noted, deep tendon reflexes 2+ bilaterally and gait normal SENSORIUM/ORIENTATION: Yes alert MENINGEAL SIGNS: Yes no meningeal signs Psych: COMMON NORMALS: mental status grossly normal, Normal thought process present, cooperative and normal affect THOUGHT PROCESS: Normal thought pro cess present Skin: COMMON NORMALS: no rashes or lesions noted and turgor normal GENERAL SKIN EXAM: no rashes or lesions noted and turgor normal Course Vital Signs: Vital signs: Vital Signs Temperature 97.4 F L 05/08/23 20:02 Pulse Rate 82 05/08/23 20:02 Respiratory Rate 14 05/08/23 20:02 Blood Pressure 151/83 05/08/23 20:02 Pulse Oximetry 97 05/08/23 20:02 Oxygen Delivery Me thod Room Air 05/08/23 20:02 MDM - Headache Medical Decision Making Physical exam completed and documented, I will provide the patient IV fluid rehydration as well as Toradol for pain control and Pepcid and Benadryl for his migraine headache. I will obtain a CT scan as this headache is a new onset finding and presentation. I did discuss the radiographic examination with the patient and reevaluation of the patient demonstrates significant improvement in control of his headache. He states he does have an appointment with his primary care provider and I encouraged him to keep that appointment. Patient states he will follow-up as necessary. Patient was discharged home in stable condition and in no acute distress. His vital signs were stable at the time of discharge. Patient verbalized understanding all information is provided at the time of discharge the patient was provided discharge instructions. The patient was advised that he may return to the emergency department at any time for any reason or if his symptoms worsen or return Medical Records I reviewed the patient's medical records. Lab Data Radiology Impressions Head CT 05/08/23 20:51 IMPRESSION: No acute intracranial abnormality. Discharge Plan Discharge Patient Disposition: Home Clinical Impression: Migraine headache Condition: Stable Prescriptions: No Action aspirin [Adult Low Dose Aspirin] 81 mg tablet,delayed release (DR/EC) 81 mg PO QAM metoprolol tartrate 25 mg tablet 12.5 mg PO BID Qty: 60 11RF famotidine [Pepcid] 20 mg tablet 20 mg PO BID Qty: 60 6RF Paxlovid (EUA) 300 mg (150 mg x 2)-100 mg tablets,dose pack See Rx Instructions PO .COMPLEX Qty: 30 0RF Rx Instructions: take TWO 150 mg tablets of nirmatrelvir with ONE 100 mg tablet of ritonavir twice daily for 5 days PO Nitrostat 0.4 mg Tablet, Sublingual 0.4 mg SUBLINGUAL Q5M PRN (Reason: Chest Pain) Rx Instructions: do not exceed 3 doses per episode atorvastatin 80 mg tablet 80 mg PO QAM lisinopril 2.5 mg tablet 2.5 mg PO QAM multivitamin Tablet 0.5 tab PO QAM clopidogrel 75 mg tablet 75 mg PO QAM Hold Instructions: Resume on 08/27/22. Discharge Orders: Discharge ED (Routine); Ordered 05/08/23 Ordered By: Travis Perez Referrals: Onofre Elise MD [Primary Care Provider] - Patient Instructions: Opioid Safety, Pain Management Coding Level of Care Code ED Central Control Room Operator for Judy Dang
--- NOTE | 2023-05-08 20:40 | PC.NURSE ---
RN into room to assess pt. Pt stated that his left eyelid droops due to nerve damage per his PCP. Pt has symmetrical eyebrow raise, smile, and equal sleeve tailor. Pt denies vision changes, one sided weakness.
--- NOTE | 2023-05-08 20:51 | CTR_ITS ---
PROCEDURE INFORMATION: Exam: CT Head Without Contrast Exam date and time: 05/08/2023 9:20 PM Age: 67 years old Clinical indication: Pain; Headache; Migraine; Aura effect not specified TECHNIQUE: Imaging protocol: Computed tomography of the head without contrast. Radiation optimization: All CT scans at this facility use at least one of these dose optimization techniques: automated exposure control; mA and/or kV adjustment per patient size (includes targeted exams where dose is matched to clinical indication); or iterative reconstruction. REPORTING DATA: Count of CT and Cardiac NM exams in prior 12 months: This patient has received 3 known CTs and 0 known cardiac nuclear medicine studies in the 12 months prior to the current study. COMPARISON: MR head wo/w con [id number] 02/06/2018 1:03 PM RADIATION DOSE METRICS: Total DLP (mGy-cm): 1113.38 FINDINGS: Brain: Normal. No hemorrhage. Unremarkable white matter. No mass effect. Cerebral ventricles: No ventriculomegaly. Paranasal sinuses: Visualized sinuses are unremarkable. No fluid levels. Mastoid air cells: Visualized mastoid air cells are well aerated. Bones/joints: Unremarkable. No acute fracture. Soft tissues: Unremarkable. CT/CT head wo con* [id number] IMPRESSION: No acute intracranial abnormality.
[2023-05-08] MEDS: sodium chloride 0.9% 1,000 ML 999 ML IV (21:05)
[2023-05-08] MEDS: ketorolac 30 mg/mL INJ IVP (21:06)
[2023-05-08] MEDS: famotidine 20 mg/2 mL INJ IVP (21:07)
[2023-05-08] MEDS: diphenhydrAMINE 50 mg/mL SDV 1mL IM (21:08)
[2023-05-08 22:19] VITALS: BP 149/94; PULSE 83; RESP 17; O2SAT 98
== END 2023-05-08 22:21 | disposition home or self-care (01) ==
PROVIDERS: Emergency Provider Internal Medicine; PCP Family Medicine
DX: G43.909 Migraine, unspecified, not intractable, without status migrainosus (principal); I25.10 Atherosclerotic heart disease of native coronary artery without angina pectoris; J44.9 Chronic obstructive pulmonary disease, unspecified; E78.5 Hyperlipidemia, unspecified; I10 Essential (primary) hypertension; Z87.891 Personal history of nicotine dependence; Z95.5 Presence of coronary angioplasty implant and graft; Z79.899 Other long term (current) drug therapy; Z79.82 Long term (current) use of aspirin
CPT/HCPCS: 70450; 96361; 96372; 96374; 96375; 99285; J1200; J1885; J3490; J7030

== ENCOUNTER → 2023-05-09 08:25 | Outpatient (BNVA) | payer MEDICARE, OTHER, SELFPAY | PROVIDERS: PCP Family Medicine; Visit Provider Family Medicine | DX: J84.10 Pulmonary fibrosis, unspecified (principal); G43.909 Migraine, unspecified, not intractable, without status migrainosus; I10 Essential (primary) hypertension; K21.9 Gastro-esophageal reflux disease without esophagitis | CPT/HCPCS: 80053; 80061; 85025 ==

== ENCOUNTER 2023-06-08 13:41 | Outpatient (CLI) | payer MEDICARE, OTHER, SELFPAY ==
[2023-06-08 14:01] VITALS: PULSE 84; RESP 18; O2SAT 97
[2023-06-08] MEDS: albuterol 2.5 mg/3 mL Neb INHALATION (14:01)
[2023-06-08 14:06] VITALS: PULSE 92
== END 2023-06-08 13:42 | disposition home or self-care (01) ==
LOC: RT 13:43
PROVIDERS: PCP Family Medicine; Visit Provider Family Medicine
DX: J84.10 Pulmonary fibrosis, unspecified (principal); R94.2 Abnormal results of pulmonary function studies
CPT/HCPCS: 94060; 94726; 94729

== ENCOUNTER → 2023-08-08 11:02 | Outpatient (BNVA) | payer MEDICARE, OTHER, SELFPAY | PROVIDERS: PCP Family Medicine; Visit Provider Family Medicine | DX: C61 Malignant neoplasm of prostate (principal); Z85.46 Personal history of malignant neoplasm of prostate | CPT/HCPCS: 84153 ==

== ENCOUNTER 2023-08-22 10:55 | Outpatient (CLI) | payer MEDICARE, OTHER, SELFPAY ==
[2023-08-22 11:23] LABS: Basophils # 0.1 10^3/uL (0.0-0.1); Basophils % 1.7 %; Eosinophils # 0.2 10^3/uL (0.0-0.8); Eosinophils % 3.1 %; Hematocrit 48.7 % (37-53); Lymphocytes % 31.7 %; Mean Corpuscular HGB Conc 33.3 g/dL (30-55); Mean Corpuscular Hemoglobin 33.5 pg (27-33); Mean Corpuscular Volume 100.6 fl (82-101); Mean Platelet Volume 10.8 fL (7.4-10.4); Monocytes # 0.7 10^3/uL (0.2-0.9); Monocytes % 11.4 %; Neutrophils # 3.31 10^3/uL (1.8-7.7); Neutrophils % 51.9 %; Nucleated Red Blood Cells % 0 %; Platelet Count 190 10^3/cmm (157-399); Red Blood Count 4.84 10^6/uL (3.85-5.65); Red Cell Distribution Width 13.2 % (12.1-15.1); White Blood Count 6.38 10^3/uL (3.29-11.43)
[2023-08-22 11:46] LABS: Alanine Aminotransferase 27 U/L (0-41); Albumin Level 4.5 g/dL (3.5-5.2); Alkaline Phosphatase 116 U/L (40-130); Anion Gap 15.7 (5-19); Aspartate Amino Transferase 26 U/L (0-40); Blood Urea Nitrogen 10 mg/dL (8-23); Calcium 10.4 mg/dL (8.5-10.5); Carbon Dioxide 26 mmol/L (22-29); Chloride 103 mmol/L (98-107); Globulin 2.9 g/dL (1.3-4.6); Glomerular Filtration Rate 74.5 mL/min (90-130); Glucose 93 mg/dL (65-115); Osmolality Calculated 291 mOsm/kg (285-295); Potassium 3.7 mmol/L (3.5-5.1); Sodium 141 mmol/L (136-145); Total Bilirubin 0.4 mg/dL (0.15-1.2); Total Protein 7.4 g/dL (6.6-8.7)
== END 2023-08-22 10:56 | disposition home or self-care (01) ==
LOC: LAB 10:56
PROVIDERS: PCP Family Medicine; Visit Provider Family Medicine
DX: N20.0 Calculus of kidney (principal); Z85.46 Personal history of malignant neoplasm of prostate; Z79.899 Other long term (current) drug therapy
CPT/HCPCS: 36415; 80053; 85025

== ENCOUNTER 2023-09-23 11:39 | Emergency (ER) | payer MEDICARE, OTHER, SELFPAY ==
[2023-09-23 11:52] VITALS: BP 122/74; PULSE 101; RESP 18; TEMP 36.4; O2SAT 99; BMI 24.4
--- NOTE | 2023-09-23 12:16 | XRR_ITS ---
PROCEDURE INFORMATION: Exam: XR Cervical Spine Exam date and time: 09/23/2023 1:02 PM Age: 67 years old Clinical indication: Patient HX: RT posterior neck pain/stiffness; No known injury; Additional info: Pain no trauma TECHNIQUE: Imaging protocol: Radiologic exam of the cervical spine. Views: 2 or 3 views. COMPARISON: CT head wo con* [id number] 05/08/2023 9:20 PM FINDINGS: Bones/joints: Disc space narrowing and spurring C5 through C7. Anatomic alignment. No fracture, lytic, or sclerotic bone lesion. No acute fracture. Normal alignment. Soft tissues: Unremarkable. Lungs: Calcified hilar lymph nodes. Vasculature: Uncoiling of the thoracic aorta. XR/XR cervical spine 3V* [id number] IMPRESSION: Degenerative changes.
--- NOTE | 2023-09-23 13:23 | ED_ITS ---
HPI - Neck Pain/Injury General: Chief Complaint: Neck Pain/Injury Stated Complaint: neck pain, stiff neck Time Seen by Provider: 09/23/23 12:10 History of Present Illness: Patient reports to the ER complaining of neck pain. Patient states that he has no known recent injury but his neck hurts right at the base of the skull. It hurts worse to turn his head and look around. Patient does have a previous injury of his neck a few years ago that he had to take muscle relaxers for. P atient had some of those muscle relaxers still and tried taking them but they did not help and only made him groggy and drowsy. Patient has not had any fever or chills or overt sickness. Review of Systems General: Reports: 10 or more systems reviewed and unremarkable except in HPI and below PFSH ED PFSH: Medical History Tubular adenoma of colon Pulmonary fibrosis Diarrhea Presence of stent in LAD coronary artery Abdominal aortic aneurysm (AAA) Essential hypertension Dyslipidemia COPD (chronic obstructive pulmonary disease) CAD (coronary artery disease) Renal calculus, right S/P extracorporeal shock wave therapy Urolithiasis Elevated PSA Prostate CA Radiation +1 injection of LHRH agonist. Completed 2018. Surgical History Hx of cholecystectomy Hx of colonoscopy 10 + yrs ago History of cystoscopy Treatment of kidney stones / temporary stent placement S/P arterial stent Coronary stent x 2 Family History Sister Cancer Ovarian Mother , 85 Stroke Father , 85 CAD (coronary artery disease) Social History Smoking and tobacco/nicotine status: former use of tobacco/nicotine Alcohol intake: current Alcohol intake frequency: few times a month Substance/Drug Use: never Adopted: No Caregiver/support person: No Lives independently: No Household members: spouse Marital status: Current occupational status: retired Current gender identity: Male Physical Exam Const: COMMON NORMALS: no acute distress, average body habitus, patient oriented x3, no limitations, healthy appearing, alert and well nourished HENMT: COMMON NORMALS: normocephalic, atraumatic, hearing grossly normal bilaterally, external ears normal, Normal external nose present, moist oral muc ous membranes and oropharynx normal HEAD & SCALP: normocephalic and atraumatic NOSE: Normal external nose present EXTERNAL EAR: Yes external ears normal Neck/C-Spine: COMMON NORMALS: no JVD OTHER: Tender to palpate over base of skull paraspinal musculature region. Limited range of motion secondary to discomfort. Chest: COMMONS NORMALS: normal inspection of the chest and normal palpation of entire chest wall Resp: COMMON NORMALS: normal respiratory effort, No retractions, No use of accessory muscles and clear to auscultation bilaterally AUSCULTATION: clear to auscultation bilaterally Cardio: COMMON NORMALS: no JVD, regular rate, regular rhythm, S1 normal heart sound present, S2 normal heart sound present, No gallops present (Cardio), No clicks present (Cardio), No murmurs present (Cardio) and No rub (Cardio) RATE: regular rate RHYTHM: regular rhythm HEART SOUNDS: S1 normal heart sound present and S2 normal heart sound present GI: COMMON NORMALS: Normal to inspection, nondistended, normoactive bowel sounds present, Soft to palpation, non-tender, No hepatosplenomegaly present and no masses PALPATION: Yes Soft to palpation and Yes No hepatosplenomegaly present Neuro: COMMON NORMALS: patient oriented x3 SENSORIUM/ORIENTATION: Yes alert Course Vital Signs: Vital signs: Vital Signs Temperature 97.6 F 09/23/23 11:52 Pulse Rate 94 09/23/23 15:09 Respiratory Rate 18 09/23/23 11:52 Blood Pressure 143/88 09/23/23 15:09 Pulse Oximetry 96 09/23/23 15:09 Oxygen Delivery Me thod Room Air 09/23/23 15:09 MDM - Neck Pain/Injury Medical Decision Making Patient had cervical spine x-rays which was negative. Patient was given a shot of Toradol and Norflex and some oral prednisone. This relieved the patient's pain from a 8 9 out of 10 and also down to a 2 out of 10 and patient is ready to go. Patient be discharged home with a prescription for prednisone. Differential Diagnosis Likely cervical spondylosis; Unlikely disc disorder of cervical region, whiplash injury to neck, closed subluxation of cervical spine, fracture of cervical spine without lesion of spinal cord, cervical radiculopathy, vertebral artery dissection, torticollis or strain of neck muscle Medical Records I reviewed the patient's medical records. Lab Data I reviewed the patient's lab results. All radiology interpretation(s) finalized by discharge Discharge Plan Discharge Patient Disposition: Home Clinical Impression: Acute neck pain Condition: Stable Prescriptions: New prednisone 50 mg tablet 50 mg PO DAILY Qty: 5 0RF cyclobenzaprine 5 mg tablet 5 mg PO Q8H PRN (Reason: muscle spasm) Qty: 14 0RF cyclobenzaprine 5 mg tablet 5 mg PO TID PRN (Reason: muscle spasm) Qty: 14 0RF No Action aspirin [Adult Low Dose Aspirin] 81 mg tablet,delayed release (DR/EC) 81 mg PO QAM metoprolol tartrate 25 mg tablet 12.5 mg PO BID Qty: 60 11RF famotidine [Pepcid] 20 mg tablet 20 mg PO BID Qty: 60 6RF amoxicillin-pot clavulanate [Augmentin] 500-125 mg tablet 1 tab PO TID Qty: 30 0RF atorvastatin 80 mg tablet 80 mg PO QAM lisinopril 2.5 mg tablet 2.5 mg PO QAM multivitamin Tablet 0.5 tab PO QAM clopidogrel 75 mg tablet 75 mg PO QAM Hold Instructions: Resume on 08/27/22. nystatin 100,000 unit/gram powder 1 applic TOPICAL BID Discharge Orders: Discharge ED (Routine); Ordered 09/23/23 Ordered By: Joe Beth Referrals: Onofre Elise MD [Primary Care Provider] - 1 week Patient Instructions: Acute Neck Pain (ED) Activity Restrictions/Additional Instructions: Please take all your medicine as directed. Please try warm heat compresses and gentle stretching. Please follow-up with your family practice physician within the next 7 to 10 days for further evaluation and treatment as needed. Coding Level of Care Code ED Operations Intelligence Superintendent for Judy Dang
[2023-09-23] MEDS: predniSONE 20 mg Tablet 40 MG PO (13:45)
[2023-09-23] MEDS: orphenadrine 30 mg/mL Inj 2 mL 60 MG IM (13:46)
[2023-09-23] MEDS: ketorolac 60 mg/2 mL INJ IM (13:46)
[2023-09-23 15:09] VITALS: BP 143/88; PULSE 94; O2SAT 96
== END 2023-09-23 15:50 | disposition home or self-care (01) ==
PROVIDERS: Emergency Provider Emergency Medicine; PCP Family Medicine
DX: M54.2 Cervicalgia (principal); Z79.02 Long term (current) use of antithrombotics/antiplatelets; Z79.82 Long term (current) use of aspirin; Z87.891 Personal history of nicotine dependence; I10 Essential (primary) hypertension; E78.5 Hyperlipidemia, unspecified; J44.9 Chronic obstructive pulmonary disease, unspecified; I25.10 Atherosclerotic heart disease of native coronary artery without angina pectoris; Z85.46 Personal history of malignant neoplasm of prostate; Z92.3 Personal history of irradiation
CPT/HCPCS: 72040; 96372; 99284; J1885; J2360; J7512

== ENCOUNTER → 2023-11-14 12:40 | Outpatient (BNVA) | payer MEDICARE, OTHER, SELFPAY | PROVIDERS: PCP Family Medicine; Visit Provider Internal Medicine | DX: I71.40 Abdominal aortic aneurysm, without rupture, unspecified (principal); I10 Essential (primary) hypertension; E78.5 Hyperlipidemia, unspecified; I25.10 Atherosclerotic heart disease of native coronary artery without angina pectoris; Z87.891 Personal history of nicotine dependence | CPT/HCPCS: 99214 ==

== ENCOUNTER 2023-11-27 06:10 | Outpatient (CLI) | payer MEDICARE, OTHER, SELFPAY ==
--- NOTE | 2023-11-27 06:30 | USCV_ITS ---
Eliceo Simpson Age: 67 Gender: M : 1955 Exam Date: 11/27/2023 06:21 Ordering Phys: Francisco Clayton M.D ([email or web address]) Technologist: [email or web address] [place]am Location: [facility] [place] Indication: aaa HISTORY: Diameter (cm) AP x Transverse x Length Velocity (cm/s) Waveform Prox Aorta: 2.00 x 2.20 x 60.00 Mid Aorta: 2.50 x 2.30 x 67.00 Distal Aorta: 2.60 x 2.50 x 46.00 Right Iliac Prox: 1.10 x 0.92 x 91.00 Left Iliac Prox: 1.20 x 1.10 x 118.00 Stent Prox Landing x x Aneurysmal Sac Max x x Lt Lat Sac Dim Rt Lat Sac Dim Stent Dist Landing x x Right Iliac Stent x x Left Iliac Stent x x Right Renal Art Left Renal Art FINDINGS: no significant change Mild diffuse plaques in the abdominal aorta Fusiform dilatation of the infrarenal aorta measuring 2.6 x 2.5 The proximal common iliac artery measured 1.1 x 0.92 on the right side and 1.2 x 1 point on the left side CONCLUSIONS Small fusiform aneurysm of the distal abdominal aorta measuring 2.5 x 2.6 No aneurysms in the iliac artery Mild diffuse plaque in the abdominal aorta The size of the aneurysm appears to have reduced since 10/06/2022(the size was one 3.8 x 3.0 at that time) Dr Crystal Garcia MD [facility] (Electronically Signed) Final Date: 29 November 2023 08:53 S
== END 2023-11-27 06:11 | disposition home or self-care (01) ==
LOC: RAD 06:10
PROVIDERS: PCP Family Medicine; Visit Provider Internal Medicine
DX: I71.40 Abdominal aortic aneurysm, without rupture, unspecified (principal)
CPT/HCPCS: 93978

== ENCOUNTER 2024-04-08 16:17 | Outpatient (CLI) | payer MEDICARE, OTHER, SELFPAY ==
--- NOTE | 2024-04-08 16:22 | XRR_ITS ---
PROCEDURE INFORMATION: Exam: XR Lumbosacral Spine Exam date and time: 04/08/2024 4:26 PM Age: 68 years old Clinical indication: Low back pain; Patient HX: Lower back pain x 1 week, possible pulled muscle, no specific injury, HX of prostate cancer TECHNIQUE: Imaging protocol: Radiologic exam of the lumbosacral spine. Views: 2 or 3 views. COMPARISON: MR lumbar spine wo con* [id number] 06/14/2018 6:44 PM FINDINGS: Bones/joints: There is normal anatomic alignment of the lumbosacral spine. There is no fracture or destructive bone lesion. The intervertebral disc spaces are uniform. The sacrum is intact. There is mild degenerative facet arthropathy at L4-L5 and L5-S1. Soft tissues: Unremarkable. XR/XR lumbar spine 2-3V* [id number] IMPRESSION: Mild degenerative facet arthropathy of the lower lumbar spine, otherwise stable exam when compared to the prior MRI.
== END 2024-04-08 16:18 | disposition home or self-care (01) ==
LOC: RAD 16:19
PROVIDERS: PCP Family Medicine; Visit Provider Family Medicine
DX: M54.50 Low back pain, unspecified (principal); Z85.46 Personal history of malignant neoplasm of prostate
CPT/HCPCS: 72100

== ENCOUNTER 2024-04-23 06:00 | Outpatient (RCR) | payer MEDICARE, OTHER, SELFPAY | END 2024-05-01 23:59 | disposition home or self-care (01) | LOC: SPT 06:00 | PROVIDERS: PCP Family Medicine; Visit Provider Family Medicine | DX: M54.50 Low back pain, unspecified (principal) | CPT/HCPCS: 97110; 97161 ==

== ENCOUNTER 2024-05-02 06:00 | Outpatient (RCR) | payer MEDICARE, OTHER, SELFPAY | END 2024-06-01 23:59 | disposition home or self-care (01) | LOC: SPT 06:00 | PROVIDERS: PCP Family Medicine; Visit Provider Family Medicine | DX: M54.50 Low back pain, unspecified (principal) | CPT/HCPCS: 97110 ==

== ENCOUNTER → 2024-05-14 14:12 | Outpatient (BNVA) | payer MEDICARE, OTHER, SELFPAY | PROVIDERS: PCP Family Medicine; Visit Provider Internal Medicine | DX: I71.40 Abdominal aortic aneurysm, without rupture, unspecified (principal); I10 Essential (primary) hypertension; E78.5 Hyperlipidemia, unspecified; I25.10 Atherosclerotic heart disease of native coronary artery without angina pectoris | CPT/HCPCS: 99214 ==

== ENCOUNTER 2024-07-15 11:34 | Outpatient (CLI) | payer MEDICARE, OTHER, SELFPAY ==
--- NOTE | 2024-07-15 11:38 | XRR_ITS ---
PROCEDURE INFORMATION: Exam: XR Left Foot Exam date and time: 07/15/2024 11:43 AM Age: 68 years old Clinical indication: Pain; Foot; Left; Additional info: Ankle / foot pain TECHNIQUE: Imaging protocol: Radiologic exam of the left foot. Views: 1 or 2 views. COMPARISON: CT angio abd aorta runof [id number] 11/15/2022 3:39 PM FINDINGS: Bones/joints: Question avulsion fracture from the anterior dorsal left talus. This is of uncertain age. Pes planus. Otherwise, unremarkable. Soft tissues: Normal. XR/XR foot LT 2V [id number] IMPRESSION: 1. Question avulsion fracture from the anterior dorsal left talus. This is of uncertain age. 2. Pes planus.
--- NOTE | 2024-07-15 11:38 | XRR_ITS ---
PROCEDURE INFORMATION: Exam: XR Left Ankle Exam date and time: 07/15/2024 11:43 AM Age: 68 years old Clinical indication: Pain; Ankle; Left; Additional info: Ankle/ foot pain TECHNIQUE: Imaging protocol: Radiologic exam of the left ankle. Views: 1 or 2 views. COMPARISON: CT angio abd aorta runof [id number] 11/15/2022 3:39 PM FINDINGS: Bones/joints: Question avulsion fracture from the anterior dorsal left talus. Uncertain age. Otherwise, unremarkable. Soft tissues: Mild diffuse soft tissue swelling. Otherwise, unremarkable soft tissues. XR/XR ankle LT 2V [id number] IMPRESSION: 1. Question avulsion fracture from the anterior dorsal left talus is of uncertain age. 2. Mild diffuse soft tissue swelling. 3. No other acute findings.
== END 2024-07-15 11:35 | disposition home or self-care (01) ==
LOC: RAD 11:36
PROVIDERS: PCP Family Medicine; Visit Provider Family Medicine
DX: R93.7 Abnormal findings on diagnostic imaging of other parts of musculoskeletal system (principal); M79.672 Pain in left foot
CPT/HCPCS: 73600; 73620

== ENCOUNTER → 2024-11-21 14:01 | Outpatient (BNVA) | payer MEDICARE, OTHER, SELFPAY | PROVIDERS: PCP Family Medicine; Visit Provider Internal Medicine | DX: I71.40 Abdominal aortic aneurysm, without rupture, unspecified (principal); I10 Essential (primary) hypertension; E78.5 Hyperlipidemia, unspecified; I25.10 Atherosclerotic heart disease of native coronary artery without angina pectoris; Z87.891 Personal history of nicotine dependence | CPT/HCPCS: 99214 ==

== ENCOUNTER 2024-12-03 13:41 | Outpatient (CLI) | payer MEDICARE, OTHER, SELFPAY ==
--- NOTE | 2024-12-03 14:00 | USCV_ITS ---
CalvinEliceo Age: 68 Gender: M : 1955 Exam Date: 12/03/2024 13:53 Ordering Phys: Francisco Clayton M.D ([email or web address]) Technologist: [email or web address] Exam Location: [facility] – [place] Indication: AAA HISTORY: Diameter (cm) AP x Transverse x Length Velocity (cm/s) Waveform Prox Aorta: 1.90 x 2.03 x 62.20 Triphasic Mid Aorta: 2.11 x 2.64 x 5.70 66.20 Triphasic Distal Aorta: 1.34 x 1.43 x 69.80 Triphasic Right Iliac Prox: 0.96 x 1.03 x 53.60 Triphasic Left Iliac Prox: 0.84 x 1.00 x 87.20 Triphasic Stent Prox Landing x x Aneurysmal Sac Max x x Lt Lat Sac Dim Rt Lat Sac Dim Stent Dist Landing x x Right Iliac Stent x x Left Iliac Stent x x Right Renal Art Left Renal Art FINDINGS: Comparison:. 11/27/23 A fusiform abdominal aortic aneurysm is noted with a maximal diameter of 2.6 cm. No significant stenosis noted in the abdominal aorta. No evidence of dissection involving the abdominal aorta is detected. Atherosclerotic plaque is noted in the abdominal aorta. There is evidence of atherosclerotic plaque no significan stenosis in the right common iliac artery. There is evidence of atherosclerotic plaque no significan stenosis in the left common iliac artery. CONCLUSIONS Stable minimal AAA, 2.[address] Talia Vera DO (Electronically Signed) Final Date: 03 December 2024 14:29 S
== END 2024-12-03 13:42 | disposition home or self-care (01) ==
PROVIDERS: PCP Family Medicine; Visit Provider Internal Medicine
DX: I71.40 Abdominal aortic aneurysm, without rupture, unspecified (principal); I70.0 Atherosclerosis of aorta; R93.89 Abnormal findings on diagnostic imaging of other specified body structures
CPT/HCPCS: 93978

== ENCOUNTER → 2025-05-15 13:38 | Outpatient (BNVA) | payer MEDICARE, OTHER, SELFPAY | PROVIDERS: PCP Family Medicine; Visit Provider Internal Medicine | DX: I25.10 Atherosclerotic heart disease of native coronary artery without angina pectoris (principal); I10 Essential (primary) hypertension; I71.40 Abdominal aortic aneurysm, without rupture, unspecified; E78.5 Hyperlipidemia, unspecified; Z79.02 Long term (current) use of antithrombotics/antiplatelets; Z79.82 Long term (current) use of aspirin; Z95.5 Presence of coronary angioplasty implant and graft; Z87.891 Personal history of nicotine dependence | CPT/HCPCS: 99213 ==